=== PATIENT | female | born 1965 | race Hispanic/Latino ===

== ENCOUNTER 2017-01-11 12:49 | Emergency (ER) | payer MEDICAID ==
--- NOTE | 2017-01-11 14:26 | ED PDOC ---
HPI: General Adult Time Seen by Provider: 01/11/17 13:00 Chief Complaint (Provider): medication refill History Per: Patient History/Exam Limitations: no limitations Onset/Duration Of Symptoms: Unknown Have you had recent travel within the past 21 days to any of the following countries: [place], [place], [place] or [place]?: No Additional Complaint(s): Amber Phillips is a 51 year old female, with a previously medical history of anxiety, hypertension and depression, who presents to the ED for a refill in her medication. Pt reports running out of her 1 mg Klonopin and attempted to see her PMD today but was unable to. Pt denies any suicidal ideation, homicidal ideation, hallucinations, chest pain or shortness of breath. Pt denies any active medical complaints at this time. PMD: none provided Past Medical History Reviewed: Historical Data, Nursing Documentation, Vital Signs Vital Signs: Last Vital Signs Temp 97.6 F 01/11/17 13:14 Pulse 73 01/11/17 13:14 Resp 18 01/11/17 13:14 BP 113/73 01/11/17 13:14 Pulse Ox 96 01/11/17 13:14 - Medical History PMH: Anxiety, Depression, Fractures (right ankle), GERD, HTN Denies: Diabetes, Hepatitis, HIV, Seizures, Sexually Transmitted Disease - Surgical History Surgical History: No Surg Hx - Family History Family History: States: Unknown Family Hx - Immunization History Hx Tetanus Toxoid Vaccination: Yes Hx Influenza Vaccination: No Hx Pneumococcal Vaccination: No - Home Medications Home Medications: Ambulatory Orders Medication Instructions Recorded Enalapril Maleate [Vasotec] 10 mg PO BID 12/19/16 Ranitidine HCl [Zantac] 300 mg PO DAILY 12/19/16 clonazePAM [Klonopin] 1 mg PO TID 12/19/16 hydroCHLOROthiazide [Microzide] 12.5 mg PO DAILY 12/19/16 Clonazepam [Klonopin] 1 mg PO DAILY #5 tab 01/11/17 - Allergies Allergies/Adverse Reactions: Allergies Allergy/AdvReac Type Severity Reaction Status Date / Time No Known Allergies Allergy Verified 01/11/17 14:50 Review of Systems ROS Statement: Except As Marked, All Systems Reviewed And Found Negative Cardiovascular: Negative for: Chest Pain Respiratory: Negative for: Shortness of Breath Psych: Negative for: Suicidal ideation, Other (homicidal ideation, hallucination ) Physical Exam - Reviewed Nursing Documentation Reviewed: Yes Vital Signs Reviewed: Yes - Physical Exam Appears: Positive for: Well, Non-toxic, No Acute Distress Head Exam: Positive for: ATRAUMATIC, NORMAL INSPECTION, NORMOCEPHALIC Skin: Positive for: Normal Color Cardiovascular/Chest: Positive for: Regular Rate, Rhythm Respiratory: Positive for: Normal Breath Sounds Neurologic/Psych: Positive for: Alert, Oriented, Gait (steady). Negative for: Motor/Sensory Deficits Medical Decision Making Medical Decision Making: Initial Impression: medication refill Initial plan: * physical exam * disposition Pt was given a refill for 5 tablets of her 1 mg Klonopin and advised to follow up with her PMD. Scribe Attestation: Documented by Christina Buck, acting as a scribe for Sherice Sapp PA-C. Provider Scribe Attestation: All medical record entries made by the Scribe were at my direction and personally dictated by me. I have reviewed the chart and agree that the record accurately reflects my personal performance of the history, physical exam, medical decision making, and the department course for this patient. I have also personally directed, reviewed, and agree with the discharge instructions and disposition Disposition - Clinical Impression Clinical Impression: Medication refill - Disposition Condition: STABLE Prescriptions: Clonazepam [Klonopin] 1 mg PO DAILY #5 tab Instructions: Anxiety (ED)
[2017-01-11 14:53] VITALS: BP 113/73; PULSE 73; RESP 18; TEMP 97.6; O2SAT 96
== END 2017-01-11 14:22 | disposition home or self-care (01) ==
LOC: H.ER 12:49
DX: Z76.0 Encounter for issue of repeat prescription (principal)

== ENCOUNTER 2017-02-09 14:39 | Emergency (ER) | payer MEDICAID ==
[2017-02-09 14:44] VITALS: O2SAT 99
--- NOTE | 2017-02-09 15:17 | ED PDOC ---
HPI: Psych/Substance Abuse Time Seen by Provider: 02/09/17 14:51 Chief Complaint (Nursing): Alcohol Ingestion Chief Complaint (Provider): Alcohol ingestion History Per: Patient History/Exam Limitations: no limitations Onset/Duration Of Symptoms: Mins Current Symptoms Are (Timing): Still Present Suicide/Self Injury Attempted (Context): None Modifying Factor(s): Alcohol Associated Symptoms: Anxiety, Paranoia. denies: Suicidal Thoughts, Suicidal Plan Additional History Per: Patient, EMS Additional Complaint(s): The pt is a 51yo female, brought to the ED by EMS for evaluation s/p patient called 911 citing she felt paranoid and depressed. Pt admits to drinking alcohol today and denies any suicidal, homicidal ideation or hallucinations. Pt offers no additional medical complaints. Past Medical History Reviewed: Historical Data, Nursing Documentation, Vital Signs Vital Signs: Last Vital Signs Temp 98.6 F 02/09/17 14:42 Pulse 87 02/09/17 14:42 Resp 18 02/09/17 14:42 BP 128/74 02/09/17 14:42 Pulse Ox 99 02/09/17 14:42 - Medical History PMH: Anxiety, Depression, Fractures (right ankle), GERD, HTN Denies: Diabetes, Hepatitis, HIV, Seizures, Sexually Transmitted Disease - Family History Family History: States: Unknown Family Hx - Immunization History Hx Tetanus Toxoid Vaccination: Yes Hx Influenza Vaccination: No Hx Pneumococcal Vaccination: No - Home Medications Home Medications: Ambulatory Orders Medication Instructions Recorded Enalapril Maleate [Vasotec] 10 mg PO BID 12/19/16 Ranitidine HCl [Zantac] 300 mg PO DAILY 12/19/16 clonazePAM [Klonopin] 1 mg PO TID 12/19/16 hydroCHLOROthiazide [Microzide] 12.5 mg PO DAILY 12/19/16 Clonazepam [Klonopin] 1 mg PO DAILY #5 tab 01/11/17 - Allergies Allergies/Adverse Reactions: Allergies Allergy/AdvReac Type Severity Reaction Status Date / Time No Known Allergies Allergy Verified 01/11/17 14:50 Review of Systems ROS Statement: Except As Marked, All Systems Reviewed And Found Negative Psych: Positive for: Anxiety, Depression. Negative for: Suicidal ideation Physical Exam - Reviewed Nursing Documentation Reviewed: Yes Vital Signs Reviewed: Yes - Physical Exam Appears: Positive for: Well, Non-toxic, Uncomfortable Head Exam: Positive for: ATRAUMATIC, NORMAL INSPECTION, NORMOCEPHALIC Skin: Positive for: Normal Color Eye Exam: Positive for: Normal appearance Cardiovascular/Chest: Positive for: Regular Rate, Rhythm Respiratory: Negative for: Respiratory Distress Neurologic/Psych: Positive for: Alert, Oriented, Mood/Affect (slurred speech, alcohol on breath), Gait (steady) - ECG O2 Sat by Pulse Oximetry: 99 (RA) Pulse Ox Interpretation: Normal - Progress ED Course And Treament: Pt. evaluated by crisis and cleared pt. for discharge. Pt. with steady unassisted gait. Medical Decision Making Medical Decision Making: Time: 1507 Impression: ETOH intoxication Plan: -- Alcohol serum -- Drug Screen --Reassess Scribe Attestation: All records were documented by Yesenia Goldman, acting as a Scribe for IRWIN Hernandez. Provider Scribe Attestation: All medical record entries made by the Scribe were at my direction and personally dictated by me. I have reviewed the chart and agree that the record accurately reflects my personal performance of the history, physical exam, medical decision making, and the department course for this patient. I have also personally directed, reviewed, and agree with the discharge instructions and disposition. Disposition - Clinical Impression Clinical Impression: Alcohol intoxication - Patient ED Disposition Is Patient to be Admitted: No - Disposition Referrals: [facility] [Outside] Disposition: Routine/Home Disposition Time: 20:35 Condition: IMPROVED Instructions: Alcohol Intoxication (ED)
[2017-02-09 20:51] VITALS: BP 127/63; PULSE 82; RESP 18; TEMP 98
== END 2017-02-09 20:51 | disposition home or self-care (01) ==
LOC: H.ER 14:39
DX: F10.129 Alcohol abuse with intoxication, unspecified (principal); Y90.8 Blood alcohol level of 240 mg/100 ml or more

== ENCOUNTER 2017-02-14 06:26 | Emergency (ER) | payer MEDICAID ==
[2017-02-14 06:39] VITALS: BP 172/98; PULSE 102; RESP 16; TEMP 98.2; O2SAT 98
--- NOTE | 2017-02-14 07:52 | ED PDOC ---
HPI: Psych/Substance Abuse Time Seen by Provider: 02/14/17 07:12 Chief Complaint (Nursing): Anxiety Chief Complaint (Provider): Im anxious History Per: Patient History/Exam Limitations: no limitations Onset/Duration Of Symptoms: Gradual Current Symptoms Are (Timing): Still Present Suicide/Self Injury Attempted (Context): None Modifying Factor(s): None Severity: Mild Associated Symptoms: Anxiety. 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 Denies etoh intake. Denies suicidal or homicidal thoughts. [employer] database query reveals last klonopin received Jan 17, 90pills 1mg. Past Medical History Reviewed: Historical Data, Nursing Documentation, Vital Signs Vital Signs: Last Vital Signs Temp 98.2 F 02/14/17 06:36 Pulse 102 H 02/14/17 06:36 Resp 16 02/14/17 06:36 BP 172/98 H 02/14/17 06:36 Pulse Ox 98 02/14/17 06:36 - Medical History PMH: Anxiety, Depression, Fractures (right ankle), GERD, HTN Denies: Diabetes, Hepatitis, HIV, Chronic Kidney Disease, Seizures, Sexually Transmitted Disease - Family History Family History: States: Unknown Family Hx - Social History Current smoker - smoking cessation education provided: Yes Alcohol: Other (denies currently) - Immunization History Hx Tetanus Toxoid Vaccination: Yes Hx Influenza Vaccination: No Hx Pneumococcal Vaccination: No - Home Medications Home Medications: Ambulatory Orders Medication Instructions Recorded Enalapril Maleate [Vasotec] 10 mg PO BID 12/19/16 Ranitidine HCl [Zantac] 300 mg PO DAILY 12/19/16 clonazePAM [Klonopin] 1 mg PO TID 12/19/16 hydroCHLOROthiazide [Microzide] 12.5 mg PO DAILY 12/19/16 Clonazepam [Klonopin] 1 mg PO DAILY #5 tab 01/11/17 - Allergies Allergies/Adverse Reactions: Allergies Allergy/AdvReac Type Severity Reaction Status Date / Time No Known Allergies Allergy Verified 01/11/17 14:50 Review of Systems ROS Statement: Except As Marked, All Systems Reviewed And Found Negative Constitutional: Negative for: Fever, Chills Cardiovascular: Negative for: Chest Pain, Palpitations Respiratory: Negative for: Cough, Hemoptysis Genitourinary Female: Negative for: Dysuria, Frequency Skin: Negative for: Rash, Lesions Neurological: Negative for: Weakness, Numbness Psych: Positive for: Anxiety. Negative for: Psychosis, Suicidal ideation, Withdrawal Physical Exam - Reviewed Nursing Documentation Reviewed: Yes Vital Signs Reviewed: Yes - Physical Exam Appears: Positive for: Well, Non-toxic, No Acute Distress Head Exam: Positive for: ATRAUMATIC, NORMAL INSPECTION, NORMOCEPHALIC Skin: Positive for: Normal Color, Warm, DRY Eye Exam: Positive for: EOMI, Normal appearance, PERRL Respiratory: Negative for: Respiratory Distress Gastrointestinal/Abdominal: Positive for: Normal Exam, Bowel Sounds, Soft. Negative for: Tenderness Back: Positive for: Normal Inspection Extremity: Positive for: Normal ROM. Negative for: Deformity Neurologic/Psych: Positive for: Alert, Oriented, Mood/Affect (anxious but cooperative). Negative for: Motor/Sensory Deficits, Aphasia, Facial Droop - ECG O2 Sat by Pulse Oximetry: 98 Pulse Ox Interpretation: Normal Medical Decision Making Medical Decision Making: klonopin 1mg ordered PO in ED. Explained for refills of chronic anxiety medications needs to see PMD. No signs acute benzo withdrawal to indicate hospitalization. Disposition - Clinical Impression Clinical Impression: Anxiety - Patient ED Disposition Is Patient to be Admitted: No Counseled Patient/Family Regarding: Studies Performed, Diagnosis, Need For Followup - Disposition Referrals: Clark Farrar [Medical Doctor] - Disposition: Routine/Home Disposition Time: 07:53 Condition: STABLE Additional Instructions: Followup with primary doctor for continuing care. Instructions: Anxiety (ED)
== END 2017-02-14 08:10 | disposition home or self-care (01) ==
LOC: H.ER 06:26
DX: F41.9 Anxiety disorder, unspecified (principal); I10 Essential (primary) hypertension; K21.9 Gastro-esophageal reflux disease without esophagitis

== ENCOUNTER 2017-03-27 06:38 | Emergency (ER) | payer MEDICAID, OTHER ==
[2017-03-27 06:45] VITALS: BP 143/72; PULSE 84; RESP 16; TEMP 98.7; O2SAT 96
--- NOTE | 2017-03-27 07:25 | ED PDOC ---
HPI: Psych/Substance Abuse Time Seen by Provider: 03/27/17 07:07 Chief Complaint (Nursing): Anxiety History Per: Patient (Requesting medication for anxiety. Denies SI/HI.) Onset/Duration Of Symptoms: Unknown Suicide/Self Injury Attempted (Context): None Modifying Factor(s): None Severity: None Associated Symptoms: Anxiety Past Medical History Vital Signs: Last Vital Signs Temp 98.7 F 03/27/17 06:40 Pulse 84 03/27/17 06:40 Resp 16 03/27/17 06:40 BP 143/72 03/27/17 06:40 Pulse Ox 96 03/27/17 06:40 - Medical History PMH: Anxiety, Depression, Fractures (right ankle), GERD, HTN Denies: Diabetes, Hepatitis, HIV, Chronic Kidney Disease, Seizures, Sexually Transmitted Disease - Family History Family History: States: Unknown Family Hx - Immunization History Hx Tetanus Toxoid Vaccination: Yes Hx Influenza Vaccination: No Hx Pneumococcal Vaccination: No - Home Medications Home Medications: Ambulatory Orders Medication Instructions Recorded Enalapril Maleate [Vasotec] 10 mg PO BID 12/19/16 Ranitidine HCl [Zantac] 300 mg PO DAILY 12/19/16 clonazePAM [Klonopin] 1 mg PO TID 12/19/16 hydroCHLOROthiazide [Microzide] 12.5 mg PO DAILY 12/19/16 Clonazepam [Klonopin] 1 mg PO DAILY #5 tab 01/11/17 - Allergies Allergies/Adverse Reactions: Allergies Allergy/AdvReac Type Severity Reaction Status Date / Time No Known Allergies Allergy Verified 01/11/17 14:50 Review of Systems Cardiovascular: Negative for: Chest Pain, Palpitations Respiratory: Negative for: Shortness of Breath Psych: Positive for: Anxiety Physical Exam - Physical Exam Appears: Positive for: Non-toxic, No Acute Distress Skin: Positive for: Normal Color, Warm, DRY Cardiovascular/Chest: Positive for: Regular Rate, Rhythm Respiratory: Positive for: CNT, Normal Breath Sounds Neurologic/Psych: Positive for: Mood/Affect (Calm, appropriate NAD) - ECG O2 Sat by Pulse Oximetry: 96 Disposition - Clinical Impression Clinical Impression: Anxiety - Patient ED Disposition Is Patient to be Admitted: No - Disposition Referrals: [facility] [Outside] Disposition: Routine/Home Disposition Time: 07:25 Condition: FAIR Instructions: Anxiety (ED)
== END 2017-03-27 07:39 | disposition home or self-care (01) ==
LOC: H.ER 06:38
DX: F41.9 Anxiety disorder, unspecified (principal)

== ENCOUNTER 2017-03-27 19:02 | Emergency (ER) | payer MEDICAID, OTHER ==
[2017-03-27 19:06] VITALS: BP 126/85; PULSE 91; RESP 18; TEMP 98.7; O2SAT 99
--- NOTE | 2017-03-27 19:26 | ED PDOC ---
HPI: Psych/Substance Abuse Time Seen by Provider: 03/27/17 19:07 Chief Complaint (Nursing): Alcohol Ingestion Chief Complaint (Provider): etoh History Per: Patient, EMS Additional Complaint(s): 51-year-old female with history of anxiety presents to emergency department acutely intoxicated. Patient admits to drinking today and states that she has been anxious over her current living situation. She denies suicidal or homicidal ideation. Patient is also out of her anxiety medications that she takes daily. She normally takes 1 mg Klonopin 3 times a day and was supposed to follow-up last week with her primary doctor but she never made the appointment. Patient denies any chest pain, shortness of breath or dyspnea on exertion. In addition to drinking alcohol today she admits to taking 2 tablets of Benadryl at home. Past Medical History Reviewed: Historical Data, Nursing Documentation, Vital Signs Vital Signs: Last Vital Signs Temp 98.7 F 03/27/17 19:04 Pulse 91 H 03/27/17 19:04 Resp 18 03/27/17 19:04 BP 126/85 03/27/17 19:04 Pulse Ox 99 03/27/17 19:04 - Medical History PMH: Anxiety, Depression, Fractures (right ankle), GERD, HTN - Surgical History Other surgeries: right ankle surgery - Family History Family History: States: No Known Family Hx - Living Arrangements Living Arrangements: With Family - Social History Current smoker - smoking cessation education provided: No Alcohol: Social Drugs: Denies - Home Medications Home Medications: Ambulatory Orders Medication Instructions Recorded Enalapril Maleate [Vasotec] 10 mg PO BID 12/19/16 Ranitidine HCl [Zantac] 300 mg PO DAILY 12/19/16 clonazePAM [Klonopin] 1 mg PO TID 12/19/16 hydroCHLOROthiazide [Microzide] 12.5 mg PO DAILY 12/19/16 Clonazepam [Klonopin] 1 mg PO DAILY #5 tab 01/11/17 - Allergies Allergies/Adverse Reactions: Allergies Allergy/AdvReac Type Severity Reaction Status Date / Time No Known Allergies Allergy Verified 03/27/17 19:03 Review of Systems ROS Statement: Except As Marked, All Systems Reviewed And Found Negative Constitutional: Negative for: Fever Psych: Positive for: Anxiety, Other (etoh). Negative for: Suicidal ideation Physical Exam - Reviewed Nursing Documentation Reviewed: Yes Vital Signs Reviewed: Yes - Physical Exam Appears: Positive for: Well Head Exam: Positive for: NORMAL INSPECTION Skin: Negative for: Rash Eye Exam: Positive for: Normal appearance Cardiovascular/Chest: Positive for: Regular Rate, Rhythm Respiratory: Positive for: Normal Breath Sounds Neurologic/Psych: Positive for: Alert, Oriented, Other (intoxicated, answers questions appropriately) - ECG O2 Sat by Pulse Oximetry: 99 Pulse Ox Interpretation: Normal Medical Decision Making Medical Decision Makin51 year old acutely intoxicated female 19:25 Plan: BAL: 225 Fingerstick: 114 ED observation ED OBSERVATION Date of observation admission: 03/27/17 Time of observation admission: 19:25 - Observation admission statement Patient is being placed in observation because:: Alcohol intoxication - Goals of Observation Goals of observation are:: Monitor vital signs and airway well patient is acutely intoxicated, pending sobriety - Progress Note Progress Note: 03/27/17 21:30 Patient is sleeping, arousable, vital signs are stable, no airway compromise 03/27/17 23:30 Patient is more awake, alert, has steady gait and wishes to go home. Patient is stable for discharge. Disposition - Clinical Impression Clinical Impression: Anxiety, Alcohol intoxication - Patient ED Disposition Is Patient to be Admitted: No Counseled Patient/Family Regarding: Diagnosis, Need For Followup - Disposition Referrals: [facility] [Outside] Disposition: Routine/Home Disposition Time: 23:35 Condition: STABLE Additional Instructions: Follow up as soon as possible with your primary care doctor. Instructions: Alcohol Intoxication (ED)
== END 2017-03-27 23:53 | disposition home or self-care (01) ==
LOC: H.ER 19:02
DX: F51.9 Sleep disorder not due to a substance or known physiological condition, unspecified (principal)

== ENCOUNTER 2017-07-17 14:22 | Emergency (ER) | payer MEDICAID ==
[2017-07-17 14:52] VITALS: TEMP 98.4; O2SAT 97
[2017-07-17] MEDS ORDERED: Sodium Chloride 0.9% 1,000 ML IV STA (15:11)
--- NOTE | 2017-07-17 15:13 | ED PDOC ---
HPI: Abdomen Time Seen by Provider: 07/17/17 14:56 Chief Complaint (Nursing): Anxiety History Per: Patient (Epigastric pain x 2 days. States has been drinking daily and feels depresssed but denies SI/HI. No vomiting) Current Symptoms Are (Timing): Intermittent Episodes Severity: Mild Pain Scale Rating Of: 2 Location Of Pain/Discomfort: Epigastric Quality Of Discomfort: Unable To Describe Associated Symptoms: denies: Vomiting Past Medical History Vital Signs: Last Vital Signs Temp 98.4 F 07/17/17 14:50 Pulse 92 H 07/17/17 14:50 Resp 16 07/17/17 14:50 BP 141/87 07/17/17 14:50 Pulse Ox 97 07/17/17 15:13 - Medical History PMH: Anxiety, Depression, Fractures (right ankle), GERD, HTN Denies: Diabetes, Hepatitis, HIV, Chronic Kidney Disease, Seizures, Sexually Transmitted Disease - Family History Family History: States: Unknown Family Hx - Immunization History Hx Tetanus Toxoid Vaccination: Yes Hx Influenza Vaccination: No Hx Pneumococcal Vaccination: No - Home Medications Home Medications: Ambulatory Orders Medication Instructions Recorded Enalapril Maleate [Vasotec] 10 mg PO BID 12/19/16 Ranitidine HCl [Zantac] 300 mg PO DAILY 12/19/16 clonazePAM [Klonopin] 1 mg PO TID 12/19/16 hydroCHLOROthiazide [Microzide] 12.5 mg PO DAILY 12/19/16 Clonazepam [Klonopin] 1 mg PO DAILY #5 tab 01/11/17 Enalapril Maleate [Vasotec] 10 mg PO BID #60 tab 05/29/17 Pantoprazole [Protonix EC Tab] 20 mg PO DAILY #30 ect 05/29/17 hydroCHLOROthiazide [Microzide] 12.5 mg PO DAILY #30 cap 05/29/17 Famotidine [Pepcid] 20 mg PO Q12 #20 tab 07/17/17 chlordiazePOXIDE [Chlordiazepoxide 10 mg PO Q8 #10 cap 07/17/17 HCl] - Allergies Allergies/Adverse Reactions: Allergies Allergy/AdvReac Type Severity Reaction Status Date / Time No Known Allergies Allergy Verified 07/17/17 14:49 Review of Systems ROS Statement: Except As Marked, All Systems Reviewed And Found Negative Gastrointestinal: Positive for: Abdominal Pain Psych: Positive for: Depression. Negative for: Suicidal ideation Physical Exam - Reviewed Nursing Documentation Reviewed: Yes Vital Signs Reviewed: Yes - Physical Exam Appears: Positive for: Non-toxic, No Acute Distress Head Exam: Positive for: ATRAUMATIC, NORMAL INSPECTION, NORMOCEPHALIC Skin: Positive for: Normal Color, Warm, DRY Eye Exam: Positive for: EOMI, Normal appearance, PERRL ENT: Positive for: Normal ENT Inspection Neck: Positive for: Normal, Painless ROM Cardiovascular/Chest: Positive for: Regular Rate, Rhythm Respiratory: Positive for: CNT, Normal Breath Sounds Gastrointestinal/Abdominal: Positive for: Normal Exam, Bowel Sounds, Soft Back: Positive for: Normal Inspection Extremity: Positive for: Normal ROM Neurologic/Psych: Positive for: Alert, Oriented - Laboratory Results Result Diagrams: 07/17/17 15:44 07/17/17 15:44 - ECG O2 Sat by Pulse Oximetry: 97 - Progress Re-evaluation Time: 17:55 Condition: Re-examined (Awake alert oriented x 3 No focal neuro deficits) Disposition - Clinical Impression Clinical Impression: Alcohol abuse - Patient ED Disposition Is Patient to be Admitted: No Counseled Patient/Family Regarding: Studies Performed, Diagnosis, Need For Followup, Rx Given - Disposition Referrals: [facility] [Outside] [facility]] Disposition: Routine/Home Disposition Time: 17:56 Condition: FAIR Prescriptions: chlordiazePOXIDE [Chlordiazepoxide HCl] 10 mg PO Q8 #10 cap Famotidine [Pepcid] 20 mg PO Q12 #20 tab Instructions: Abuse of Alcohol (ED), Gastritis (ED) Forms: [employer] (Hungarian)
[2017-07-17 15:55] LABS: BASO # 0.1 K/uL (0.0-0.2); BASO % 0.7 % (0.0-2.0); EOS % 0.5 % (0.0-4.0); HEMATOCRIT 37.7 % (34.0-47.0); LYMPH # 3.3 K/uL (1.0-4.3); MEAN CORPUSCULAR HEMOGLOBIN 33.5 pg (27.0-31.0); MEAN CORPUSCULAR HGB CONC 34.9 g/dL (33.0-37.0); MONO # 0.8 K/uL (0.0-0.8); MONO % 9.2 % (0.0-10.0); NEUT # 4.9 K/uL (1.8-7.0); NEUT % 53.6 % (50.0-75.0); NRBC % 0.2 % (0.0-0.0); RED CELL DISTRIBUTION WIDTH 12.5 % (11.5-14.5); WHITE BLOOD COUNT 9.1 K/uL (4.8-10.8)
[2017-07-17 16:07] LABS: ALB/GLOB RATIO 1.1 (1.0-2.1); ALCOHOL SERUM 165 mg/dl (0-10); ALKALINE PHOSPHATASE 113 U/L (38-126); ALT/SGPT 219 U/L (9-52); AST/SGOT 226 U/L (14-36); BILIRUBIN,TOTAL 0.5 mg/dl (0.2-1.3); BLOOD UREA NITROGEN 12 mg/dl (7-17); CALCIUM 8.9 mg/dL (8.4-10.2); CARBON DIOXIDE 22 mmol/L (22-30); CHLORIDE 90 mmol/L (98-107); GFR AFRICAN-AMERICAN > 60; GLUCOSE,RANDOM 120 mg/dL (65-105); POTASSIUM 3.4 MMOL/L (3.6-5.0); SODIUM 128 mmol/l (132-148); TOTAL PROTEIN 7.6 G/DL (6.3-8.2)
[2017-07-17] MEDS ORDERED: Potassium Chloride 20 mEq ER Tab PO ONE ×2 (17:29→18:02)
[2017-07-17 18:25] VITALS: BP 132/80; PULSE 82; RESP 17
== END 2017-07-17 18:24 | disposition home or self-care (01) ==
LOC: H.ER 14:22
DX: F10.129 Alcohol abuse with intoxication, unspecified (principal)
CPT/HCPCS: 80053; 80320; 85025; 96374; 99283; J7040

== ENCOUNTER 2017-07-21 10:30 | Emergency (ER) | payer MEDICAID ==
[2017-07-21 10:35] VITALS: BP 144/83; PULSE 101; RESP 18; TEMP 98.9; O2SAT 97; BMI 31.7
[2017-07-21] MEDS ORDERED: Sodium Chloride 0.9% 1,000 ML IV STA (11:29)
--- NOTE | 2017-07-21 11:30 | ED PDOC ---
HPI: Abdomen Time Seen by Provider: 07/21/17 10:49 Chief Complaint (Nursing): Abdominal Pain Chief Complaint (Provider): Vomiting and Right sided abdominal pain History Per: Patient History/Exam Limitations: no limitations Onset/Duration Of Symptoms: Days Outside of [place] travel?: No Current Symptoms Are (Timing): Still Present Associated Symptoms: Vomiting Additional Complaint(s): Amber Phillips, a 51 year old female, with a past medical history of hypertension and anxiety presents to the ED complaining of vomiting and right sided rib pain. The patient states that she was seen in the ED a few days ago and diagnosed with gastritis and prescribed librium and pepcid. She reports that her last episode of vomiting was a day ago. Abnormal Vaginal Bleeding: No Past Medical History Reviewed: Historical Data, Nursing Documentation, Vital Signs Vital Signs: Last Vital Signs Temp 98.9 F 07/21/17 10:34 Pulse 101 H 07/21/17 10:34 Resp 18 07/21/17 10:34 BP 144/83 07/21/17 10:34 Pulse Ox 97 07/21/17 11:33 - Medical History PMH: Anxiety, Depression, Fractures (right ankle), GERD, HTN Denies: Diabetes, Hepatitis, HIV, Chronic Kidney Disease, Seizures, Sexually Transmitted Disease - Family History Family History: States: Unknown Family Hx - Immunization History Hx Tetanus Toxoid Vaccination: Yes Hx Influenza Vaccination: No Hx Pneumococcal Vaccination: No - Home Medications Home Medications: Ambulatory Orders Medication Instructions Recorded Ranitidine HCl [Zantac] 300 mg PO DAILY 12/19/16 clonazePAM [Klonopin] 1 mg PO TID 12/19/16 Enalapril Maleate [Vasotec] 10 mg PO BID #60 tab 05/29/17 Pantoprazole [Protonix EC Tab] 20 mg PO DAILY #30 ect 05/29/17 hydroCHLOROthiazide [Microzide] 12.5 mg PO DAILY #30 cap 05/29/17 Famotidine [Pepcid] 20 mg PO Q12 #20 tab 07/17/17 chlordiazePOXIDE [Chlordiazepoxide 10 mg PO Q8 #10 cap 07/17/17 HCl] - Allergies Allergies/Adverse Reactions: Allergies Allergy/AdvReac Type Severity Reaction Status Date / Time No Known Allergies Allergy Verified 07/17/17 14:49 Review of Systems ROS Statement: Except As Marked, All Systems Reviewed And Found Negative Gastrointestinal: Positive for: Vomiting, Abdominal Pain (right sided abdominal pain) Physical Exam - Reviewed Nursing Documentation Reviewed: Yes Vital Signs Reviewed: Yes - Physical Exam Appears: Positive for: Non-toxic, No Acute Distress Head Exam: Positive for: ATRAUMATIC, NORMAL INSPECTION, NORMOCEPHALIC Skin: Positive for: Normal Color, Warm, Dry. Negative for: Rash Eye Exam: Positive for: Normal appearance, EOMI, PERRL. Negative for: Nystagmus Neck: Positive for: Normal, Painless ROM, Supple Cardiovascular/Chest: Positive for: Regular Rate, Rhythm, Chest Non Tender. Negative for: Tachycardia Respiratory: Positive for: Normal Breath Sounds. Negative for: Wheezing, Respiratory Distress Gastrointestinal/Abdominal: Positive for: Normal Exam, Bowel Sounds, Soft. Negative for: Tenderness, Guarding, Rebound Back: Positive for: Normal Inspection. Negative for: L CVA Tenderness, R CVA Tenderness Extremity: Positive for: Normal ROM. Negative for: Tenderness, Pedal Edema, Deformity, Swelling Neurologic/Psych: Positive for: Alert, Oriented, Gait - Laboratory Results Result Diagrams: 07/21/17 12:07 07/21/17 12:50 - ECG O2 Sat by Pulse Oximetry: 97 (RA) Pulse Ox Interpretation: Normal Medical Decision Making Medical Decision Makin Initial Impression 51 y/o old female presenting with left sided abdominal pain Initial Plan: * Alcohol Serum * CMP * Lipase * Udip * CBC * Obstructive Series * NS 1000ml IV 1000mls/hr * Reevaluation Scribe Attestation Documented by Bee Arevalo acting as a scribe for Ivelisse Wadsworth MD. Provider Attestation All medical record entries made by the Scribe were at my direction and personally dictated by me. I have reviewed the chart and agree that the record accurately reflects my personal performance of the history, physical exam, medical decision making, and the department course for this patient. I have also personally directed, reviewed, and agree with the discharge instructions and disposition. Disposition - Clinical Impression Clinical Impression: Flatulence/gas pain/belching - Patient ED Disposition Is Patient to be Admitted: No Doctor Will See Patient In The: Office - Disposition Disposition: Routine/Home Disposition Time: 14:00 Condition: STABLE Instructions: Gas and Bloating (ED) Forms: [facility] (Korean) - POA Present On Arrival: None
[2017-07-21 12:26] LABS: BASO # 0.1 K/uL (0.0-0.2); BASO % 0.6 % (0.0-2.0); EOS # 0.1 K/uL (0.0-0.7); EOS % 0.8 % (0.0-4.0); HEMATOCRIT 37.2 % (34.0-47.0); LYMPH # 2.3 K/uL (1.0-4.3); MEAN CELL VOLUME 96.3 fl (81.0-99.0); MEAN CORPUSCULAR HGB CONC 35.3 g/dL (33.0-37.0); MEAN PLATELET VOLUME 9.2 fl (7.2-11.7); MONO # 0.7 K/uL (0.0-0.8); MONO % 8.2 % (0.0-10.0); NEUT # 5.5 K/uL (1.8-7.0); NEUT % 63.4 % (50.0-75.0); NRBC % 0.3 % (0.0-0.0); RED CELL DISTRIBUTION WIDTH 12.3 % (11.5-14.5); WHITE BLOOD COUNT 8.7 K/uL (4.8-10.8)
--- NOTE | 2017-07-21 12:26 | RAD ---
PROCEDURE: Radiographs of the chest and abdomen (obstructive series) HISTORY: abdominal pain COMPARISON: Chest x-ray performed 12/19/16 TECHNIQUE: AP radiograph of the chest, with upright and supine radiographs of the abdomen. FINDINGS: Examination limited by habitus. CHEST: Heart size appears within normal limits. No focal consolidation, significant pleural effusion, or definite pneumothorax identified.Please note that chest x-ray has limited sensitivity for the detection of pulmonary masses. ABDOMEN AND PELVIS: Nonobstructive bowel gas pattern. No definite free air. Mild constipation. Punctate radiopaque densities appear to reflect tiny residual oral contrast in the right colon; correlate clinically for recent outside imaging study. Degenerative changes of the spine. IMPRESSION: Nonobstructive bowel gas pattern. Mild constipation. Additional findings as above.
[2017-07-21 13:12] LABS: ALB/GLOB RATIO 1.1 (1.0-2.1); ALCOHOL SERUM < 10 mg/dl (0-10); ALKALINE PHOSPHATASE 113 U/L (38-126); ALT/SGPT 228 U/L (9-52); AST/SGOT 217 U/L (14-36); BILIRUBIN,TOTAL 0.6 mg/dl (0.2-1.3); BLOOD UREA NITROGEN 12 mg/dl (7-17); CALCIUM 8.9 mg/dL (8.4-10.2); CARBON DIOXIDE 28 mmol/L (22-30); CHLORIDE 93 mmol/L (98-107); GFR AFRICAN-AMERICAN > 60; GLUCOSE,RANDOM 99 mg/dL (65-105); SODIUM 132 mmol/l (132-148)
[2017-07-21 13:14] LABS: POTASSIUM 3.3 MMOL/L (3.6-5.0)
== END 2017-07-21 14:46 | disposition home or self-care (01) ==
LOC: H.ER 10:30
DX: R14.3 Flatulence (principal); R14.2 Eructation; R14.1 Gas pain; I10 Essential (primary) hypertension; Z86.59 Personal history of other mental and behavioral disorders
CPT/HCPCS: 74022; 80053; 80320; 81025; 85025; 99282; J7040

== ENCOUNTER 2017-09-14 13:34 | Observation (INO) | payer MEDICAID ==
[2017-09-14 13:35] VITALS: BMI 31.7
--- NOTE | 2017-09-14 14:02 | ED PDOC ---
HPI: Psych/Substance Abuse Time Seen by Provider: 09/14/17 13:55 Chief Complaint (Nursing): GI Problem Chief Complaint (Provider): etoh History Per: Patient Additional Complaint(s): 51-year-old female with history of anxiety and alcohol abuse presents to emergency department acutely intoxicated. Patient states she went to an alcohol detox program in June 2017 and was sober for about 30 days after which she relapsed. She states she has not been feeling well over the past couple of weeks because she has been drinking heavily. Patient denies suicidal or homicidal ideation. Patient denies any nausea or vomiting despite triage note stating otherwise. Patient was seen on 08/28/17 by her PMD and was told that her sodium levels are very low. She presents today for further evaluation of this. Past Medical History Reviewed: Historical Data, Nursing Documentation, Vital Signs Vital Signs: Last Vital Signs Temp 97.0 F L 09/14/17 13:37 Pulse 114 H 09/14/17 13:37 Resp 18 09/14/17 13:37 BP 143/93 H 09/14/17 13:37 Pulse Ox 99 09/14/17 13:37 - Medical History PMH: Anxiety, Depression, Fractures (right ankle), GERD, HTN - Family History Family History: States: No Known Family Hx - Living Arrangements Living Arrangements: With Friends/Others - Social History Current smoker - smoking cessation education provided: No Alcohol: > 2 Drinks/Day Drugs: Denies - Home Medications Home Medications: Ambulatory Orders Medication Instructions Recorded Ranitidine HCl [Zantac] 300 mg PO DAILY 12/19/16 clonazePAM [Klonopin] 1 mg PO TID 12/19/16 Enalapril Maleate [Vasotec] 10 mg PO BID #60 tab 05/29/17 Pantoprazole [Protonix EC Tab] 20 mg PO DAILY #30 ect 05/29/17 hydroCHLOROthiazide [Microzide] 12.5 mg PO DAILY #30 cap 05/29/17 Famotidine [Pepcid] 20 mg PO Q12 #20 tab 07/17/17 chlordiazePOXIDE [Chlordiazepoxide 10 mg PO Q8 #10 cap 07/17/17 HCl] - Allergies Allergies/Adverse Reactions: Allergies Allergy/AdvReac Type Severity Reaction Status Date / Time No Known Allergies Allergy Verified 07/17/17 14:49 Review of Systems ROS Statement: Except As Marked, All Systems Reviewed And Found Negative Constitutional: Negative for: Fever Gastrointestinal: Negative for: Nausea, Vomiting, Abdominal Pain Psych: Positive for: Other (etoh) Physical Exam - Reviewed Nursing Documentation Reviewed: Yes Vital Signs Reviewed: Yes - Physical Exam Appears: Positive for: Well, Non-toxic, No Acute Distress Skin: Negative for: Rash Eye Exam: Positive for: Normal appearance Cardiovascular/Chest: Positive for: Regular Rate, Rhythm Respiratory: Positive for: Normal Breath Sounds Gastrointestinal/Abdominal: Positive for: Soft. Negative for: Tenderness, Distended, Guarding, Rebound Back: Positive for: Normal Inspection Extremity: Positive for: Normal ROM Neurologic/Psych: Positive for: Alert, Oriented, Other (intoxicated, answers some questions appropriately) - Laboratory Results Result Diagrams: 09/14/17 14:30 09/14/17 14:30 - ECG Interpretation Of ECG: Sinus tach 103 bpm with PAC's, reviewed by PA and ED attending O2 Sat by Pulse Oximetry: 99 Pulse Ox Interpretation: Normal - Other Rad CXR X-Ray: Interpreted by Me, Viewed By Me X-Ray Interpretation: no acute finding Medical Decision Making Medical Decision Makin51 year old intoxicated female Patient is eating sandwich in ED room. She denies abd pain or vomiting. Plan: BAL CBC CMP UDS CXR EKG NA low at 122, case was d/w Dr. Kelsey. Patient will be admitted to medicine administrative assistant front desk, Dr. Mcneill. NS started. Patient is aware of and agrees with admission. Disposition - Clinical Impression Clinical Impression: Alcohol abuse, Hyponatremia - Patient ED Disposition Is Patient to be Admitted: Yes - Disposition Disposition Time: 15:37 Condition: FAIR - Pt Status Changed To: Hospital Disposition Of: Observation Results - Lab Results Lab Results: 09/14/17 09/14/17 14:30 14:30 WBC 11.0 H RBC 3.99 Hgb 13.3 Hct 38.4 MCV 96.2 MCH 33.3 H MCHC 34.6 RDW 13.2 Plt Count 217 MPV 8.4 Neut % (Auto) 58.1 Lymph % (Auto) 33.8 [place] % (Auto) 6.5 Eos % (Auto) 0.7 Baso % (Auto) 0.9 Neut # 6.4 Lymph # 3.7 Love # 0.7 Eos # 0.1 Baso # 0.1 Sodium 122 L Potassium 3.5 L Chloride 86 L Carbon Dioxide 28 Anion Gap 12 BUN 13 Creatinine 0.7 Est GFR ( Amer) > 60 Est GFR (Non-Af Amer) > 60 Random Glucose 141 H Calcium 8.4 Total Bilirubin 0.4 AST 118 H D ALT 135 H D Alkaline Phosphatase 125 Total Protein 7.8 Albumin 4.2 Globulin 3.6 Albumin/Globulin Ratio 1.1 Alcohol, Quantitative 143 H
[2017-09-14 14:34] LABS: BASO # 0.1 K/uL (0.0-0.2); BASO % 0.9 % (0.0-2.0); EOS # 0.1 K/uL (0.0-0.7); EOS % 0.7 % (0.0-4.0); HEMATOCRIT 38.4 % (34.0-47.0); LYMPH # 3.7 K/uL (1.0-4.3); LYMPH % 33.8 % (20.0-40.0); MEAN CELL VOLUME 96.2 fl (81.0-99.0); MEAN CORPUSCULAR HEMOGLOBIN 33.3 pg (27.0-31.0); MEAN CORPUSCULAR HGB CONC 34.6 g/dL (33.0-37.0); MEAN PLATELET VOLUME 8.4 fl (7.2-11.7); MONO # 0.7 K/uL (0.0-0.8); MONO % 6.5 % (0.0-10.0); NEUT # 6.4 K/uL (1.8-7.0); NEUT % 58.1 % (50.0-75.0); RED CELL DISTRIBUTION WIDTH 13.2 % (11.5-14.5)
[2017-09-14] MEDS ORDERED: Alum-Mag Hydrox-Simethicone Susp (30 mL) PO STA (14:44)
[2017-09-14 14:46] LABS: ALB/GLOB RATIO 1.1 (1.0-2.1); ALCOHOL SERUM 143 mg/dl (0-10); ALKALINE PHOSPHATASE 125 U/L (38-126); ALT/SGPT 135 U/L (9-52); AST/SGOT 118 U/L (14-36); BILIRUBIN,TOTAL 0.4 mg/dl (0.2-1.3); BLOOD UREA NITROGEN 13 mg/dl (7-17); CALCIUM 8.4 mg/dL (8.4-10.2); CARBON DIOXIDE 28 mmol/L (22-30); CHLORIDE 86 mmol/L (98-107); GFR AFRICAN-AMERICAN > 60; GLUCOSE,RANDOM 141 mg/dL (65-105); POTASSIUM 3.5 MMOL/L (3.6-5.0); SODIUM 122 mmol/l (132-148); TOTAL PROTEIN 7.8 G/DL (6.3-8.2)
[2017-09-14] MEDS ORDERED: Alum-Mag Hydrox-Simethicone Susp (30 mL) ONE (14:52)
[2017-09-14] MEDS ORDERED: Sodium Chloride 0.9% 1,000 ML IV STA ×2 (15:12→15:35)
--- NOTE | 2017-09-14 17:56 | RAD ---
HISTORY: cough COMPARISON: Comparison chest dated 12/19/2016. Do TECHNIQUE: Chest PA and lateral FINDINGS: LUNGS: No active pulmonary disease. PLEURA: No significant pleural effusion identified. No pneumothorax apparent. CARDIOVASCULAR: Heart size is borderline/ mildly enlarged. OSSEOUS STRUCTURES: No significant abnormalities. VISUALIZED UPPER ABDOMEN: Normal. OTHER FINDINGS: None. IMPRESSION: No active disease.
[2017-09-15] MEDS: Pantoprazole 20 mg EC Tab PO SCH ×2 (00:53→08:43)
[2017-09-15 06:32] LABS: HEMATOCRIT 34.9 % (34.0-47.0); MEAN CELL VOLUME 98.2 fl (81.0-99.0); MEAN CORPUSCULAR HEMOGLOBIN 33.3 pg (27.0-31.0); MEAN CORPUSCULAR HGB CONC 33.9 g/dL (33.0-37.0); RED CELL DISTRIBUTION WIDTH 13.4 % (11.5-14.5)
[2017-09-15 06:56] LABS: ALKALINE PHOSPHATASE 100 U/L (38-126); ALT/SGPT 118 U/L (9-52); AST/SGOT 98 U/L (14-36); BILIRUBIN,TOTAL 0.5 mg/dl (0.2-1.3); BLOOD UREA NITROGEN 9 mg/dl (7-17); CARBON DIOXIDE 25 mmol/L (22-30); CHLORIDE 102 mmol/L (98-107); GFR AFRICAN-AMERICAN > 60; GLUCOSE,RANDOM 110 mg/dL (65-105); POTASSIUM 4.1 MMOL/L (3.6-5.0); SODIUM 134 mmol/l (132-148); TOTAL PROTEIN 6.7 G/DL (6.3-8.2)
[2017-09-15 08:34] VITALS: BP 150/89; PULSE 86; RESP 20; TEMP 98.6; O2SAT 97
[2017-09-15] MEDS: Sodium Chloride 0.9% 1,000 ML IV SCH ×2 (08:46)
[2017-09-15] MEDS ORDERED: Pantoprazole 20 mg EC Tab PO SCH (09:00)
--- NOTE | 2017-09-15 11:06 | CARD ---
APPROVED REPORT EKG Measurement Heart [id number] <Conclusion> Sinus tachycardia with premature atrial complexes Possible Left atrial enlargement ST & T wave abnormality, consider anterior ischemia Abnormal ECG
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
--- NOTE | 2017-09-15 12:27 | CP.PCM.DIS ---
Provider - Provider Date of Admission: 09/14/17 15:58 Attending physician: Kamari Mcneill MD Time Spent in preparation of Discharge (in minutes): 30 Diagnosis - Discharge Diagnosis (1) Hyponatremia Status: Acute (2) Alcohol abuse Status: Acute (3) Anxiety Status: Acute Hospital Course - Lab Results Lab Results: Most Recent Lab Values WBC 7.0 K/uL (4.8-10.8) 09/15/17 05:30 RBC 3.56 Mil/uL (3.80-5.20) L 09/15/17 05:30 Hgb 11.9 g/dL (12.0-16.0) L 09/15/17 05:30 Hct 34.9 % (34.0-47.0) 09/15/17 05:30 MCV 98.2 fl (81.0-99.0) D 09/15/17 05:30 MCH 33.3 pg (27.0-31.0) H 09/15/17 05:30 MCHC 33.9 g/dL (33.0-37.0) 09/15/17 05:30 RDW 13.4 % (11.5-14.5) 09/15/17 05:30 Plt Count 164 K/uL (130-400) 09/15/17 05:30 MPV 8.4 fl (7.2-11.7) 09/14/17 14:30 Neut % (Auto) 58.1 % (50.0-75.0) 09/14/17 14:30 Lymph % (Auto) 33.8 % (20.0-40.0) 09/14/17 14:30 [place] % (Auto) 6.5 % (0.0-10.0) 09/14/17 14:30 Eos % (Auto) 0.7 % (0.0-4.0) 09/14/17 14:30 Baso % (Auto) 0.9 % (0.0-2.0) 09/14/17 14:30 Neut # 6.4 K/uL (1.8-7.0) 09/14/17 14:30 Lymph # 3.7 K/uL (1.0-4.3) 09/14/17 14:30 [place] # 0.7 K/uL (0.0-0.8) 09/14/17 14:30 Eos # 0.1 K/uL (0.0-0.7) 09/14/17 14:30 Baso # 0.1 K/uL (0.0-0.2) 09/14/17 14:30 Sodium 134 mmol/l (132-148) 09/15/17 05:30 Potassium 4.1 MMOL/L (3.6-5.0) 09/15/17 05:30 Chloride 102 mmol/L (98-107) 09/15/17 05:30 Carbon Dioxide 25 mmol/L (22-30) 09/15/17 05:30 Anion Gap 11 (10-20) 09/15/17 05:30 BUN 9 mg/dl (7-17) 09/15/17 05:30 Creatinine 0.6 mg/dl (0.7-1.2) L 09/15/17 05:30 Est GFR ( Amer) > 60 09/15/17 05:30 Est GFR (Non-Af Amer) > 60 09/15/17 05:30 Random Glucose 110 mg/dL (65-105) H 09/15/17 05:30 Calcium 8.0 mg/dL (8.4-10.2) L 09/15/17 05:30 Total Bilirubin 0.5 mg/dl (0.2-1.3) 09/15/17 05:30 AST 98 U/L (14-36) H 09/15/17 05:30 ALT 118 U/L (9-52) H 09/15/17 05:30 Alkaline Phosphatase 100 U/L (38-126) 09/15/17 05:30 Total Protein 6.7 G/DL (6.3-8.2) 09/15/17 05:30 Albumin 3.4 g/dL (3.5-5.0) L 09/15/17 05:30 Globulin 3.3 gm/dL (2.2-3.9) 09/15/17 05:30 Albumin/Globulin Ratio 1.0 (1.0-2.1) 09/15/17 05:30 Urine Opiates Screen Negative (NEGATIVE) 09/14/17 16:36 Urine Methadone Screen Negative (NEGATIVE) 09/14/17 16:36 Ur Barbiturates Screen Negative (NEGATIVE) 09/14/17 16:36 Ur Phencyclidine Scrn Negative (NEGATIVE) 09/14/17 16:36 Ur Amphetamines Screen Negative (NEGATIVE) 09/14/17 16:36 U Benzodiazepines Scrn Positive (NEGATIVE) 09/14/17 16:36 U Oth Cocaine Metabols Negative (NEGATIVE) 09/14/17 16:36 U Cannabinoids Screen Negative (NEGATIVE) 09/14/17 16:36 Alcohol, Quantitative 143 mg/dl (0-10) H 09/14/17 14:30 - Hospital Course Hospital Course: THis is a 51 y/o chronic alcoholic admitted for hyponatremia. Sodium was 122. She was given saline IVF and repeat sodium was 134. She denies any symptoms. She will be discharged on klonopin bid # 10 and advised follow up with PMD. Discharge Exam - Head Exam Head Exam: NORMAL INSPECTION - Eye Exam Eye Exam: Normal appearance - Respiratory Exam Respiratory Exam: Clear to PA & Lateral, NORMAL BREATHING PATTERN - GI/Abdominal Exam GI & Abdominal Exam: Normal Bowel Sounds - Neurological Exam Neurological exam: CN II-XII Intact, Oriented x3 - Psychiatric Exam Psychiatric exam: Normal Mood Discharge Plan - Discharge Medications Prescriptions: clonazePAM [Klonopin] 1 mg PO BID PRN #10 tab PRN Reason: Anxiety - Follow Up Plan Condition: FAIR Disposition: HOME/ ROUTINE Additional Instructions: follow up with PMD.
== END 2017-09-15 13:42 | disposition home or self-care (01) ==
LOC: H.ER 13:34 → H.ERHOLD 15:58 → H.TEL 18:37
PROVIDERS: ADMIT Family Medicine; ATTEND Family Medicine
DX: E87.1 Hypo-osmolality and hyponatremia (principal); F41.9 Anxiety disorder, unspecified; F17.200 Nicotine dependence, unspecified, uncomplicated; I10 Essential (primary) hypertension; K21.9 Gastro-esophageal reflux disease without esophagitis; F10.20 Alcohol dependence, uncomplicated; F32.9 Major depressive disorder, single episode, unspecified; F45.9 Somatoform disorder, unspecified; Z87.81 Personal history of (healed) traumatic fracture
CPT/HCPCS: 36415; 71020; 80053; 80320; 80324; 80345; 80346; 80349; 80353; 80358; 80361; 83992; 85025; 85027; 93005; 99282; G0378; J7040

== ENCOUNTER 2017-11-06 12:58 | Emergency (ER) | payer MEDICAID ==
[2017-11-06 12:58] VITALS: BMI 31.7
[2017-11-06 13:28] VITALS: BP 162/90; PULSE 89; RESP 16; TEMP 99; O2SAT 95
--- NOTE | 2017-11-06 14:02 | ED PDOC ---
HPI: General Adult Time Seen by Provider: 11/06/17 13:59 Chief Complaint (Nursing): Cough, Cold, Congestion Chief Complaint (Provider): cough, sore throat History Per: Patient Additional Complaint(s): 51-year-old female presents to emergency department with sore throat and cough ongoing for several days. Patient is taking Robitussin but this has not helped. She denies any chest pain or shortness of breath. PMD: none Past Medical History Reviewed: Historical Data, Nursing Documentation, Vital Signs Vital Signs: Last Vital Signs Temp 99 F 11/06/17 13:25 Pulse 89 11/06/17 13:25 Resp 16 11/06/17 13:25 BP 162/90 H 11/06/17 13:25 Pulse Ox 95 11/06/17 14:03 - Medical History PMH: Anxiety, Depression, Fractures (right ankle), GERD, HTN - Surgical History Other surgeries: right ankle surgery - Family History Family History: States: No Known Family Hx - Living Arrangements Living Arrangements: With Friends/Others - Social History Current smoker - smoking cessation education provided: No Alcohol: > 2 Drinks/Day Drugs: Denies - Home Medications Home Medications: Ambulatory Orders Medication Instructions Recorded Ranitidine HCl [Zantac] 300 mg PO DAILY 12/19/16 Enalapril Maleate [Vasotec] 10 mg PO BID #60 tab 05/29/17 Pantoprazole [Protonix EC Tab] 20 mg PO DAILY #30 ect 05/29/17 hydroCHLOROthiazide [Microzide] 12.5 mg PO DAILY #30 cap 05/29/17 clonazePAM [Klonopin] 1 mg PO BID PRN #10 tab 09/15/17 Albuterol HFA [Ventolin HFA 90 1 puff IH ASDIR #1 unit 11/06/17 mcg/actuation (8 g)] Azithromycin [Zithromax] 250 mg PO DAILY #6 tab 11/06/17 Benzonatate 200 mg PO TID PRN #20 capsule 11/06/17 - Allergies Allergies/Adverse Reactions: Allergies Allergy/AdvReac Type Severity Reaction Status Date / Time No Known Allergies Allergy Verified 11/06/17 13:24 Review of Systems ROS Statement: Except As Marked, All Systems Reviewed And Found Negative Constitutional: Positive for: Fever (subjective), Other (body aches). Negative for: Chills ENT: Positive for: Throat Pain Respiratory: Positive for: Cough Gastrointestinal: Negative for: Nausea, Vomiting Physical Exam - Reviewed Nursing Documentation Reviewed: Yes Vital Signs Reviewed: Yes - Physical Exam Appears: Positive for: Well, Non-toxic, No Acute Distress Skin: Negative for: Rash Eye Exam: Positive for: Normal appearance ENT: Positive for: Nasal Congestion, Pharyngeal Erythema, Tonsillar Swelling Cardiovascular/Chest: Positive for: Regular Rate, Rhythm Respiratory: Positive for: Normal Breath Sounds. Negative for: Wheezing, Respiratory Distress Gastrointestinal/Abdominal: Positive for: Soft. Negative for: Tenderness Neurologic/Psych: Positive for: Alert, Oriented - ECG O2 Sat by Pulse Oximetry: 95 Pulse Ox Interpretation: Normal - Other Rad CXR X-Ray: Interpreted by Me, Viewed By Me X-Ray Interpretation: no acute finding Medical Decision Making Medical Decision Makin51 year old with flu like symptoms Plan: CXR Flu swab Rapid strep and throat culture PO motrin and tylenol Flu and strep are negative. Will d/c with rx zithromax, tessalon perles and ventolin inhaler. Patient was referred to clinic for follow up. Disposition - Clinical Impression Clinical Impression: URI (upper respiratory infection) - Patient ED Disposition Is Patient to be Admitted: No Counseled Patient/Family Regarding: Studies Performed, Diagnosis, Need For Followup, Rx Given - Disposition Referrals: [facility] [Outside] Disposition: Routine/Home Disposition Time: 15:02 Condition: STABLE Additional Instructions: Take prescription medications as directed. [id number] Tylenol or Advil for body aches and fever as needed. Follow-up with primary doctor or clinic in 2 -3 days. Prescriptions: Albuterol HFA [Ventolin HFA 90 mcg/actuation (8 g)] 1 puff IH ASDIR #1 unit Azithromycin [Zithromax] 250 mg PO DAILY #6 tab Benzonatate 200 mg PO TID PRN #20 capsule PRN Reason: Cough Instructions: Upper Respiratory Infection (ED) Forms: [employer] (Telugu)
--- NOTE | 2017-11-06 14:53 | RAD ---
HISTORY: cough COMPARISON: 09/14/2017 TECHNIQUE: Chest PA and lateral FINDINGS: LUNGS: No consolidation PLEURA: No significant pleural effusion identified. No pneumothorax apparent. CARDIOVASCULAR: Cardiomegaly as before. OSSEOUS STRUCTURES: No significant abnormalities. VISUALIZED UPPER ABDOMEN: Normal. OTHER FINDINGS: None. IMPRESSION: No interval cardiopulmonary pathology appreciated
== END 2017-11-06 14:45 | disposition home or self-care (01) ==
LOC: H.ER 12:58
DX: J06.9 Acute upper respiratory infection, unspecified (principal); F32.9 Major depressive disorder, single episode, unspecified; F41.9 Anxiety disorder, unspecified; I10 Essential (primary) hypertension; K21.9 Gastro-esophageal reflux disease without esophagitis

== ENCOUNTER 2017-12-16 17:51 | Observation (INO) | payer MEDICAID ==
[2017-12-16 17:51] VITALS: BMI 31.7
[2017-12-16] MEDS ORDERED: Iohexol 240 (50 ml) PO ONE (18:47)
[2017-12-16] MEDS ORDERED: Multivitamin (MVI) 10 ML, Thiamine 100 MG, Folic Acid 1 MG in Sodium Chloride 0.9% 1,00... IV ONE (18:47)
[2017-12-16 19:20] LABS: BASO # 0.1 K/uL (0.0-0.2); BASO % 0.9 % (0.0-2.0); EOS # 0.1 K/uL (0.0-0.7); EOS % 1.8 % (0.0-4.0); LYMPH # 2.6 K/uL (1.0-4.3); LYMPH % 35.2 % (20.0-40.0); MEAN CELL VOLUME 96.7 fl (81.0-99.0); MEAN CORPUSCULAR HEMOGLOBIN 32.7 pg (27.0-31.0); MEAN CORPUSCULAR HGB CONC 33.8 g/dL (33.0-37.0); MEAN PLATELET VOLUME 9.6 fl (7.2-11.7); MONO # 0.6 K/uL (0.0-0.8); NEUT % 54.1 % (50.0-75.0); NRBC % 0.1 % (0.0-0.0); RBC 4.26 Mil/uL (3.80-5.20); RED CELL DISTRIBUTION WIDTH 13.7 % (11.5-14.5); WHITE BLOOD COUNT 7.4 K/uL (4.8-10.8)
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
[2017-12-16 19:51] LABS: HEMOGLOBIN 13.9 g/dL (12.0-16.0)
[2017-12-16] MEDS ORDERED: Iohexol 240 (50 ml) ONE (20:04)
[2017-12-16 20:12] LABS: ALBUMIN 4.2 g/dL (3.5-5.0); ALT/SGPT 257 U/L (9-52); AST/SGOT 241 U/L (14-36); BLOOD UREA NITROGEN 16 mg/dl (7-17); CALCIUM 10.5 mg/dL (8.4-10.2); GFR AFRICAN-AMERICAN > 60; GFR NON-AFRICAN AMERICAN > 60; LIPASE 747 U/L (23-300)
[2017-12-16] MEDS ORDERED: Sodium Chloride 0.9% 1,000 ML IV STA ×2 (20:14)
--- NOTE | 2017-12-16 20:53 | ED PDOC ---
- Laboratory Results Result Diagrams: 12/16/17 19:15 12/16/17 19:15 - ECG O2 Sat by Pulse Oximetry: 94 - Progress ED Course And Treament: Case endorsed to insurance underwriter from [employer] [facility] pending imaging, re-eval EXAM: CT Abdomen and Pelvis With Intravenous Contrast EXAM DATE/TIME: 12/16/2017 6:45 PM CLINICAL HISTORY: 52 years old, female; Pain; Abdominal pain; Epigastric; Additional info: Diffuse abdominal pain; Epigastric tenderness TECHNIQUE: Axial computed tomography images of the abdomen and pelvis with intravenous contrast. All CT scans at this facility use one or more dose reduction techniques, viz.: automated exposure control; ma/kV adjustment per patient size (including targeted exams where dose is matched to indication; i.e. head); or iterative reconstruction technique. Coronal and sagittal reformatted images were created and reviewed. CONTRAST: 90 mL of [id number] administered intravenously. COMPARISON: There are no prior studies for comparison. FINDINGS: Lower thorax: Heart size is normal. A coronary artery calcification There is a hiatal hernia. There is scarring at the lung bases. ABDOMEN: Liver: There is fatty infiltration of the liver. Gallbladder and bile ducts: Gallbladder is distended, 12 cm in length There is prominence of the common duct. Pancreas: unremarkable Spleen: unremarkable Adrenals: There is an asymmetric 2 cm cm right adrenal nodule. There is nodular thickening of the left adrenal. Kidneys and ureters: Kidneys and ureters are unremarkable. Stomach and bowel: Stomach is almost completely empty. Rotation is normal. Small bowel is partially opacified with oral contrast. There is no obstruction. Terminal ileum is unremarkable. Ileocecal region is unremarkable. There is moderate stool in the colon. Appendix: See stomach and bowel PELVIS: Bladder: unremarkable Reproductive: Uterus is unremarkable. There is prominence of the right adnexa. Right adnexa measures approximately 5.2 x 2.7 x 4.1 cm. Less left adnexa is less prominent, 3.7 x 2.3 x 2.6 cm. there are calcifications in both adnexa right greater than left. ABDOMEN and PELVIS: Intraperitoneal space: There is no free air or free fluid. Bones/joints: There are degenerative changes in the osseus structures. Soft tissues: There is a small fat containing umbilical hernia. Vasculature: There are vascular calcifications. Lymph nodes: There are multiple mildly enlarged retroperitoneal perivascular nodes. There are prominent/iliac nodes. IMPRESSION: Distended gallbladder, 12 cm in length with common duct prominence, sonography suggested if there is suspicion for gallstones/cholecystitis; 2 cm right adrenal nodule, possible adenoma; fatty liver; prominent adnexa bilaterally with adnexal calcifications; iliac and perivascular/retroperitoneal adenopathy Additional nonemergent findings as described above. EXAM: US Abdomen Limited, Right Upper Quadrant CLINICAL HISTORY: 52 years old, female; Pain; Abdominal pain; Epigastric; Patient HX: Alcoholism, epigastric pain; Additional info: Abd pain, elevated lfts TECHNIQUE: Real-time ultrasound of the right upper quadrant with image documentation. COMPARISON: CT - ABD PELVIS PO IV CONTRAST 2017-12-16 22:24 FINDINGS: Artifacts: Limited due to bowel gas shadowing. Limited due to shadowing from the ribs. Liver: The liver measures 17.6 cm. There is hepatic pedal flow in the portal vein. Gallbladder: Distended gallbladder measuring 10.5 cm without gallbladder wall thickening. No gallstones.There was no right upper quadrant tenderness during the sonographic examination. Correlation with patient's pain medication status is recommended. Common bile duct: The common bile duct measures 6 mm which is borderline prominent. No stones. Pancreas: The pancreas is not well-seen. The pancreatic duct measures 0.23 mm. Right kidney: Unremarkable. No stones. No solid mass. No hydronephrosis. Aorta: The visualized portions of the aorta appears unremarkable. IMPRESSION: 1. Nonspecific gallbladder distention without gallstones gallbladder wall thickening or pericholecystic fluid. Case discussed with ED attending, will admit for pancreatitis/IV hydration Case discussed with Dr. Magaña, Medical service on-call, for admission. Disposition - Clinical Impression Clinical Impression: Abdominal pain, Alcohol intoxication, Pancreatitis, acute - POA Present On Arrival: None - Disposition Disposition: Admitted as In-Patient Disposition Time: 02:49 Condition: FAIR
[2017-12-16 21:07] LABS: SQUAMOUS EPITHIAL 4 /hpf (0-5); URINE BACTERIA RARE (<OCC); URINE BILIRUBIN NEGATIVE (NEGATIVE); URINE BLOOD NEGATIVE (NEGATIVE); URINE CLARITY SLIGHTY-CLOUDY (Clear); URINE COLOR YELLOW (YELLOW); URINE GLUCOSE (UA) NEG (Normal); URINE LEUKOCYTE ESTERASE TRACE Leu/uL (Negative); URINE PROTEIN NEGATIVE (NEGATIVE); URINE UROBILINOGEN 0.2-1.0 mg/dL (0.2-1.0)
[2017-12-16] MEDS ORDERED: Sodium Chloride 0.9% 100 ML ONE (21:32)
[2017-12-16] MEDS ORDERED: Iohexol 300 100 ML IJ ONE (21:32)
--- NOTE | 2017-12-16 23:07 | CT ---
EXAM: CT Abdomen and Pelvis With Intravenous Contrast EXAM DATE/TIME: 12/16/2017 6:45 PM CLINICAL HISTORY: 52 years old, female; Pain; Abdominal pain; Epigastric; Additional info: Diffuse abdominal pain; Epigastric tenderness TECHNIQUE: Axial computed tomography images of the abdomen and pelvis with intravenous contrast. All CT scans at this facility use one or more dose reduction techniques, viz.: automated exposure control; ma/kV adjustment per patient size (including targeted exams where dose is matched to indication; i.e. head); or iterative reconstruction technique. Coronal and sagittal reformatted images were created and reviewed. CONTRAST: 90 mL of administered intravenously. COMPARISON: There are no prior studies for comparison. FINDINGS: Lower thorax: Heart size is normal. A coronary artery calcification There is a hiatal hernia. There is scarring at the lung bases. ABDOMEN: Liver: There is fatty infiltration of the liver. Gallbladder and bile ducts: Gallbladder is distended, 12 cm in length There is prominence of the common duct. Pancreas: unremarkable Spleen: unremarkable Adrenals: There is an asymmetric 2 cm cm right adrenal nodule. There is nodular thickening of the left adrenal. Kidneys and ureters: Kidneys and ureters are unremarkable. Stomach and bowel: Stomach is almost completely empty. Rotation is normal. Small bowel is partially opacified with oral contrast. There is no obstruction. Terminal ileum is unremarkable. Ileocecal region is unremarkable. There is moderate stool in the colon. Appendix: See stomach and bowel PELVIS: Bladder: unremarkable Reproductive: Uterus is unremarkable. There is prominence of the right adnexa. Right adnexa measures approximately 5.2 x 2.7 x 4.1 cm. Less left adnexa is less prominent, 3.7 x 2.3 x 2.6 cm. there are calcifications in both adnexa right greater than left. ABDOMEN and PELVIS: Intraperitoneal space: There is no free air or free fluid. Bones/joints: There are degenerative changes in the osseus structures. Soft tissues: There is a small fat containing umbilical hernia. Vasculature: There are vascular calcifications. Lymph nodes: There are multiple mildly enlarged retroperitoneal perivascular nodes. There are prominent/iliac nodes. IMPRESSION: Distended gallbladder, 12 cm in length with common duct prominence, sonography suggested if there is suspicion for gallstones/cholecystitis; 2 cm right adrenal nodule, possible adenoma; fatty liver; prominent adnexa bilaterally with adnexal calcifications; iliac and perivascular/retroperitoneal adenopathy Additional nonemergent findings as described above.
--- NOTE | 2017-12-17 08:24 | CARD ---
APPROVED REPORT EKG Measurement Heart [id number] VT [id number] <Conclusion> Sinus rhythm with premature atrial complexes Nonspecific ST and T wave abnormality Prolonged QT Abnormal ECG
--- NOTE | 2017-12-17 08:41 | RAD ---
HISTORY: abdominal pain COMPARISON: Chest radiographs 11/06/2017. FINDINGS: LUNGS: No active pulmonary disease. PLEURA: No significant pleural effusion identified, no pneumothorax apparent. CARDIOVASCULAR: Mild cardiomegaly appears stable. No pulmonary vascular derangement appreciated. OSSEOUS STRUCTURES: No significant abnormalities. VISUALIZED UPPER ABDOMEN: Normal. OTHER FINDINGS: None. IMPRESSION: Stable, mild cardiomegaly without pulmonary venous congestion. No acute infiltrate, pleural effusion or pneumothorax identified.
[2017-12-17] MEDS: Sodium Chloride 0.9% 1,000 ML IV SCH ×2 (09:11→19:46)
[2017-12-17] MEDS: Pantoprazole 40 mg EC Tab PO SCH (09:15)
[2017-12-17 09:31] LABS: ALB/GLOB RATIO 1.1 (1.0-2.1); ALBUMIN 3.6 g/dL (3.5-5.0); ALT/SGPT 221 U/L (9-52); AST/SGOT 182 U/L (14-36); BLOOD UREA NITROGEN 12 mg/dl (7-17); GFR AFRICAN-AMERICAN > 60; GFR NON-AFRICAN AMERICAN > 60; LIPASE 196 U/L (23-300)
[2017-12-17 10:17] LABS: HEMOGLOBIN 12.6 g/dL (12.0-16.0); MEAN CELL VOLUME 96.5 fl (81.0-99.0); MEAN CORPUSCULAR HEMOGLOBIN 33.1 pg (27.0-31.0); MEAN CORPUSCULAR HGB CONC 34.3 g/dL (33.0-37.0); RBC 3.8 Mil/uL (3.80-5.20); RED CELL DISTRIBUTION WIDTH 13.7 % (11.5-14.5); WHITE BLOOD COUNT 5.4 K/uL (4.8-10.8)
--- NOTE | 2017-12-17 11:33 | US ---
HISTORY: Abdominal pain, elevated LFTs COMPARISON: 12/23/2013 TECHNIQUE: Sonographic evaluation of the right upper quadrant of the abdomen. FINDINGS: LIVER: Measures 17.6 cm in length. Patent portal vein. Portal venous flow: Hepatopetal. Unremarkeable echogenicity of the liver parenchyma. No mass. No intrahepatic bile duct dilatation. GALLBLADDER: Distended gallbladder. No gallstones. COMMON BILE DUCT: Measures 6.2 mm. No stones. No dilatation. PANCREAS: Unremarkable as visualized. No mass. No ductal dilatation. RIGHT KIDNEY: Measures 4.9 x 11.3 cm in length. Normal echogenicity. No calculus, mass, or hydronephrosis. AORTA: No aneurysmal dilatation. IVC: Unremarkable. OTHER FINDINGS: None . IMPRESSION: Distended gallbladder common no acute gallbladder abnormalities. Otherwise unremarkable study.
--- NOTE | 2017-12-17 17:17 | NM ---
PROCEDURE: Nuclear Medicine Hepatobiliary Scan HISTORY: Distended gallbladder COMPARISON: Limited abdomen ultrasound 12/17/[address] with contrast 12/16/2017. TECHNIQUE: 5.9 mCi of technetium 99m Mebrofenin was administered intravenously. Planar images of the abdomen were obtained at 5 min intervals to 60 mins. Delayed images were also obtained. FINDINGS: LIVER: Timely and homogenous uptake. COMMON BILE DUCT: identified at 10-15 mins. GALLBLADDER: identified at 15 mins. SMALL BOWEL: Identified at 120 mins. IMPRESSION: No definite nuclear evidence of cystic or common duct obstruction.
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
[2017-12-18] MEDS: Sodium Chloride 0.9% 1,000 ML IV SCH (04:25)
[2017-12-18 06:37] LABS: HEMOGLOBIN 12.8 g/dL (12.0-16.0); MEAN CELL VOLUME 94.9 fl (81.0-99.0); MEAN CORPUSCULAR HGB CONC 34.8 g/dL (33.0-37.0); RBC 3.88 Mil/uL (3.80-5.20); RED CELL DISTRIBUTION WIDTH 13.3 % (11.5-14.5); WHITE BLOOD COUNT 4.4 K/uL (4.8-10.8)
[2017-12-18 06:52] LABS: ALBUMIN 3.7 g/dL (3.5-5.0); ALT/SGPT 213 U/L (9-52); AST/SGOT 188 U/L (14-36); BLOOD UREA NITROGEN 13 mg/dl (7-17); CALCIUM 9.1 mg/dL (8.4-10.2); GFR AFRICAN-AMERICAN > 60; GFR NON-AFRICAN AMERICAN > 60
[2017-12-18 07:52] VITALS: BP 143/85; PULSE 67; RESP 20; TEMP 98.8
[2017-12-18] MEDS: Pantoprazole 40 mg EC Tab PO SCH (08:11)
[2017-12-18 11:01] VITALS: O2SAT 94
--- NOTE | 2017-12-18 13:47 | CP.PCM.DIS ---
Provider - Provider Date of Admission: 12/17/17 02:54 Attending physician: Timmy Magaña MD Time Spent in preparation of Discharge (in minutes): 30 Diagnosis - Discharge Diagnosis (1) Pancreatitis Status: Acute Hospital Course - Lab Results Lab Results: Most Recent Lab Values WBC 4.4 K/uL (4.8-10.8) L 12/18/17 05:40 RBC 3.88 Mil/uL (3.80-5.20) 12/18/17 05:40 Hgb 12.8 g/dL (12.0-16.0) 12/18/17 05:40 Hct 36.8 % (34.0-47.0) 12/18/17 05:40 MCV 94.9 fl (81.0-99.0) 12/18/17 05:40 MCH 33.0 pg (27.0-31.0) H 12/18/17 05:40 MCHC 34.8 g/dL (33.0-37.0) 12/18/17 05:40 RDW 13.3 % (11.5-14.5) 12/18/17 05:40 Plt Count 114 K/uL (130-400) L 12/18/17 05:40 MPV 9.6 fl (7.2-11.7) 12/16/17 19:15 Neut % (Auto) 54.1 % (50.0-75.0) 12/16/17 19:15 Lymph % (Auto) 35.2 % (20.0-40.0) 12/16/17 19:15 Fountain % (Auto) 8.0 % (0.0-10.0) 12/16/17 19:15 Eos % (Auto) 1.8 % (0.0-4.0) 12/16/17 19:15 Baso % (Auto) 0.9 % (0.0-2.0) 12/16/17 19:15 Neut # (Auto) 4.0 K/uL (1.8-7.0) 12/16/17 19:15 Lymph # (Auto) 2.6 K/uL (1.0-4.3) 12/16/17 19:15 Fountain # (Auto) 0.6 K/uL (0.0-0.8) 12/16/17 19:15 Eos # (Auto) 0.1 K/uL (0.0-0.7) 12/16/17 19:15 Baso # (Auto) 0.1 K/uL (0.0-0.2) 12/16/17 19:15 Sodium 139 mmol/l (132-148) 12/18/17 05:40 Potassium 4.1 MMOL/L (3.6-5.0) 12/18/17 05:40 Chloride 101 mmol/L (98-107) 12/18/17 05:40 Carbon Dioxide 23 mmol/L (22-30) 12/18/17 05:40 Anion Gap 19 (10-20) 12/18/17 05:40 BUN 13 mg/dl (7-17) 12/18/17 05:40 Creatinine 0.6 mg/dl (0.7-1.2) L 12/18/17 05:40 Est GFR ( Amer) > 60 12/18/17 05:40 Est GFR (Non-Af Amer) > 60 12/18/17 05:40 Random Glucose 103 mg/dL (65-105) 12/18/17 05:40 Calcium 9.1 mg/dL (8.4-10.2) 12/18/17 05:40 Magnesium 1.6 MG/DL (1.6-2.3) 12/17/17 09:10 Total Bilirubin 0.8 mg/dl (0.2-1.3) 12/18/17 05:40 AST 188 U/L (14-36) H 12/18/17 05:40 ALT 213 U/L (9-52) H 12/18/17 05:40 Alkaline Phosphatase 127 U/L (38-126) H 12/18/17 05:40 Total Protein 7.3 G/DL (6.3-8.2) 12/18/17 05:40 Albumin 3.7 g/dL (3.5-5.0) 12/18/17 05:40 Globulin 3.7 gm/dL (2.2-3.9) 12/18/17 05:40 Albumin/Globulin Ratio 1.0 (1.0-2.1) 12/18/17 05:40 Lipase 196 U/L (23-300) 12/17/17 09:10 Urine Color Yellow (YELLOW) 12/16/17 20:56 Urine Clarity Slighty-cloudy (Clear) 12/16/17 20:56 Urine pH 6.0 (5.0-8.0) 12/16/17 20:56 Ur Specific [place] 1.014 (1.003-1.030) 12/16/17 20:56 Urine Protein Negative mg/dL (NEGATIVE) 12/16/17 20:56 Urine Glucose (UA) Neg mg/dL (Normal) 12/16/17 20:56 Urine Ketones Negative mg/dL (NEGATIVE) 12/16/17 20:56 Urine Blood Negative (NEGATIVE) 12/16/17 20:56 Urine Nitrate Negative (NEGATIVE) 12/16/17 20:56 Urine Bilirubin Negative (NEGATIVE) 12/16/17 20:56 Urine Urobilinogen 0.2-1.0 mg/dL (0.2-1.0) 12/16/17 20:56 Ur Leukocyte Esterase Trace Wilmer/uL (Negative) 12/16/17 20:56 Urine RBC (Auto) 3 /hpf (0-3) 12/16/17 20:56 Urine Microscopic WBC 3 /hpf (0-5) 12/16/17 20:56 Ur Squamous Epith Cells 4 /hpf (0-5) 12/16/17 20:56 Urine Bacteria Rare (<OCC) 12/16/17 20:56 Alcohol, Quantitative 145 mg/dl (0-10) H 12/16/17 19:15 - Hospital Course Hospital Course: 52 year old female with pmhx of HTN, anxiety who presented with c/o of abdominal pain. Pt was found to have pancreatitis secondary to alcohol use. The patient was hydrated and tolerated diet. The HIDA scan was normal. The patient was discharged home with f/u instructions Discharge Exam - Head Exam Head Exam: ATRAUMATIC, NORMOCEPHALIC - Respiratory Exam Respiratory Exam: Clear to PA & Lateral, NORMAL BREATHING PATTERN - Cardiovascular Exam Cardiovascular Exam: REGULAR RHYTHM, +S1, +S2 - GI/Abdominal Exam GI & Abdominal Exam: Normal Bowel Sounds, Soft - Neurological Exam Neurological exam: Alert, Oriented x3 - Psychiatric Exam Psychiatric exam: Normal Affect - Skin Skin Exam: Normal Color, Warm Discharge Plan - Follow Up Plan Condition: STABLE Disposition: HOME/ ROUTINE Instructions: Pancreatitis (DC) Additional Instructions: follow up with your primary MD 7-10 days. Referrals: [facility] [Outside]
== END 2017-12-18 11:32 | disposition home or self-care (01) ==
LOC: H.ER 17:51 → H.ERHOLD 12-17 02:54 → H.MEDSURG1 12-17 06:16
PROVIDERS: ADMIT Internal Medicine; ATTEND Internal Medicine
DX: K85.20 Alcohol induced acute pancreatitis without necrosis or infection (principal); F10.129 Alcohol abuse with intoxication, unspecified; Y90.6 Blood alcohol level of 120-199 mg/100 ml; F41.9 Anxiety disorder, unspecified; F32.9 Major depressive disorder, single episode, unspecified; K21.9 Gastro-esophageal reflux disease without esophagitis; I10 Essential (primary) hypertension; F17.210 Nicotine dependence, cigarettes, uncomplicated; K82.8 Other specified diseases of gallbladder
CPT/HCPCS: 36415; 71045; 74177; 76705; 78227; 80053; 80320; 81003; 83690; 83735; 85025; 85027; 93005; 96374; 99283; A9537; G0378; J3411; J7040; Q9966; Q9967

== ENCOUNTER 2018-03-26 16:31 | Emergency (ER) | payer MEDICAID ==
[2018-03-26 16:32] VITALS: BMI 31.7
[2018-03-26] MEDS ORDERED: Iohexol 240 (50 ml) PO ONE (17:29)
[2018-03-26] MEDS ORDERED: Lactated Ringer's 1,000 ML IV SCH (17:30)
[2018-03-26] MEDS ORDERED: Iohexol 240 (50 ml) ONE (17:42)
[2018-03-26 17:46] LABS: BASO # 0.1 K/uL (0.0-0.2); BASO % 0.8 % (0.0-2.0); EOS # 0.2 K/uL (0.0-0.7); EOS % 2.5 % (0.0-4.0); HEMOGLOBIN 12.6 g/dL (12.0-16.0); LYMPH # 3.2 K/uL (1.0-4.3); LYMPH % 36.8 % (20.0-40.0); MEAN CELL VOLUME 100.5 fl (81.0-99.0); MEAN CORPUSCULAR HEMOGLOBIN 34.4 pg (27.0-31.0); MEAN CORPUSCULAR HGB CONC 34.2 g/dL (33.0-37.0); MEAN PLATELET VOLUME 8.8 fl (7.2-11.7); MONO # 0.8 K/uL (0.0-0.8); MONO % 9.7 % (0.0-10.0); NEUT # 4.4 K/uL (1.8-7.0); NEUT % 50.2 % (50.0-75.0); RBC 3.68 Mil/uL (3.80-5.20); RED CELL DISTRIBUTION WIDTH 13.2 % (11.5-14.5); WHITE BLOOD COUNT 8.7 K/uL (4.8-10.8)
[2018-03-26 17:57] LABS: ALBUMIN 3.9 g/dL (3.5-5.0); ALT/SGPT 110 U/L (9-52); AST/SGOT 155 U/L (14-36); BLOOD UREA NITROGEN 14 mg/dl (7-17); CALCIUM 9.1 mg/dL (8.4-10.2); GFR AFRICAN-AMERICAN > 60; GFR NON-AFRICAN AMERICAN > 60; LIPASE 293 U/L (23-300)
[2018-03-26] MEDS ORDERED: Iohexol 300 100 ML IJ ONE (19:10)
[2018-03-26] MEDS ORDERED: Sodium Chloride 0.9% 50 ML IV ONE (19:10)
--- NOTE | 2018-03-26 20:03 | ED PDOC ---
HPI: Abdomen Time Seen by Provider: 03/26/18 17:09 Chief Complaint (Nursing): Abdominal Pain History Per: Patient Additional Complaint(s): Pt. states for the past 2 days she's had epigastric pain and LLQ pain. Pt. is concerned it is pancreatitis as she has a hx of it. Admits to drinking alcohol daily. Denies N/V/D, fever, chest pain, melena, hematochezia, BRBPR. Past Medical History Reviewed: Historical Data, Nursing Documentation, Vital Signs Vital Signs: Last Vital Signs Temp 98.7 F 03/26/18 16:41 Pulse 80 03/26/18 16:41 Resp 16 03/26/18 16:41 BP 127/76 03/26/18 16:41 Pulse Ox 96 03/26/18 16:41 - Medical History PMH: Anxiety, Depression, Fractures (right ankle), GERD, HTN Denies: Chronic Kidney Disease - Family History Family History: States: No Known Family Hx - Home Medications Home Medications: Ambulatory Orders Medication Instructions Recorded Enalapril Maleate [Vasotec] 10 mg PO BID #60 tab 05/29/17 Pantoprazole [Protonix EC Tab] 20 mg PO DAILY #30 ect 05/29/17 clonazePAM [Klonopin] 1 mg PO BID PRN #10 tab 09/15/17 - Allergies Allergies/Adverse Reactions: Allergies Allergy/AdvReac Type Severity Reaction Status Date / Time No Known Allergies Allergy Verified 11/06/17 13:24 Review of Systems ROS Statement: Except As Marked, All Systems Reviewed And Found Negative Gastrointestinal: Positive for: Abdominal Pain Physical Exam - Reviewed Nursing Documentation Reviewed: Yes Vital Signs Reviewed: Yes - Physical Exam Appears: Positive for: Well, Non-toxic, No Acute Distress Head Exam: Positive for: ATRAUMATIC, NORMAL INSPECTION, NORMOCEPHALIC Skin: Positive for: Normal Color, Warm. Negative for: Rash Eye Exam: Positive for: Normal appearance Neck: Positive for: Normal, Painless ROM Cardiovascular/Chest: Positive for: Regular Rate, Rhythm Respiratory: Positive for: CNT, Normal Breath Sounds Gastrointestinal/Abdominal: Positive for: Normal Exam, Soft, Tenderness (LLQ tenderness), Other (no epigastric tenderness). Negative for: Distended, Guarding Back: Positive for: Normal Inspection. Negative for: L CVA Tenderness, R CVA Tenderness Extremity: Positive for: Normal ROM Neurologic/Psych: Positive for: Alert, Oriented. Negative for: Aphasia, Facial Droop - Laboratory Results Result Diagrams: 03/26/18 17:40 03/26/18 17:40 - ECG O2 Sat by Pulse Oximetry: 96 - Progress ED Course And Treament: Labs, CT abd/pelvis w/ PO and IV contrast, IV LR bolus x 1 ordered. Disposition - Clinical Impression Clinical Impression: Abdominal pain in female - Patient ED Disposition Is Patient to be Admitted: Transfer of Care (Signed out to Cheryl XIONG pending CT results and re-evaluation.) - Disposition Disposition Time: 20:04 Condition: STABLE
--- NOTE | 2018-03-26 20:53 | ED PDOC ---
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 All CT scans at this facility use one or more dose reduction techniques, viz.: automated exposure control; ma/kV adjustment per patient size (including targeted exams where dose is matched to indication; i.e. head); or iterative reconstruction technique. CONTRAST: 95 mL of Omnipaque administered intravenously. COMPARISON: CT - ABD PELVIS PO IV CONTRAST 2017-12-16 22:24 FINDINGS: Lung bases: Unremarkable. No mass. No consolidation. Mediastinum: Moderate hiatal hernia. ABDOMEN: Liver: Hepatomegaly. Hepatic steatosis.Lobular contour of the liver, correlate for chronic hepatic parenchymal disease. Gallbladder and bile ducts: Unremarkable. No calcified stones. No ductal dilation. Pancreas: Unremarkable. No ductal dilation. Spleen: Unremarkable. No splenomegaly. Adrenals: 1.4 cm stable right adrenal nodule. Kidneys and ureters: Unremarkable. No solid mass. No hydronephrosis. Stomach and bowel: Oral contrast reaches the proximate descending colon.Scattered diverticulosis of the colon. No evidence of diverticulitis. PELVIS: Appendix: No findings to suggest acute appendicitis. Bladder: Unremarkable. Reproductive: 4.6 cm complex cystic lesion with associated calcification is noted in the right adnexa, similar to the prior. Calcification in the left adnexa, similar to the prior. If clinically warranted, Correlate with pelvic ultrasound. ABDOMEN and PELVIS: Intraperitoneal space: Unremarkable. No free air. No significant fluid collection. Bones/joints: Spondylosis No dislocation. Soft tissues: Unremarkable. Vasculature: Unremarkable. No abdominal aortic aneurysm. Lymph nodes: Periportal lymph node measures 2.5 x 1.7 cm. Multiple scattered small retroperitoneal lymph nodes are noted, largest measures up to 1.1 cm in short axis. Peripancreatic lymph node measures 2.5 x 1.3 cm. Tiny gastrohepatic lymph nodes noted. IMPRESSION: 1. Hepatomegaly. Hepatic steatosis.Lobular contour of the liver, correlate for chronic hepatic parenchymal disease. 2. Moderate hiatal hernia. Small fat-containing umbilical hernia 3. Scattered diverticulosis of the colon. No evidence of diverticulitis. 4. 4.6 cm complex cystic lesion with associated calcification is noted in the right adnexa, similar to the prior. Calcification in the left adnexa, similar to the prior. If clinically warranted, Correlate with pelvic ultrasound. 5. Upper abdominal lymphadenopathy as described above. EXAM: US Pelvis, Transvaginal EXAM DATE/TIME: 03/26/2018 8:48 PM CLINICAL HISTORY: 52 years old, female; Pain; Pelvic pain; Additional info: Left lower abd pain TECHNIQUE: Real-time transvaginal pelvic ultrasound (complete) with image documentation. Transvaginal imaging was used for better evaluation of the endometrium and adnexa. COMPARISON: CT - ABD PELVIS PO IV CONTRAST 2018-03-26 19:52 FINDINGS: The uterus is normal. The endometrium measures 2 mm. There is a 1.7 cm cyst in the right ovary. There is a 1 cm prominent follicle/small cyst in the left ovary. Color flow and doppler vascular waveforms were demonstrated to both ovaries. There is no significant free fluid. IMPRESSION: Small ovarian cysts. 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
[2018-03-26 22:32] LABS: SQUAMOUS EPITHIAL < 1 /hpf (0-5); URINE BILIRUBIN NEGATIVE (NEGATIVE); URINE BLOOD NEGATIVE (NEGATIVE); URINE CLARITY CLEAR (Clear); URINE COLOR STRAW (YELLOW); URINE GLUCOSE (UA) NEG (Normal); URINE LEUKOCYTE ESTERASE NEG Leu/uL (Negative); URINE PROTEIN NEGATIVE (NEGATIVE); URINE UROBILINOGEN 0.2-1.0 mg/dL (0.2-1.0)
[2018-03-26 22:57] VITALS: BP 166/100; PULSE 85; RESP 18; TEMP 98.4; O2SAT 98
--- NOTE | 2018-03-27 08:45 | CT ---
PROCEDURE: CT Abdomen and Pelvis with contrast HISTORY: LLQ and epigastric pain COMPARISON: 12/16/2017. CT abdomen and pelvis. March 26, 2018. Pelvic ultrasound TECHNIQUE: Contrast dose: 95 cc Omnipaque 300 go Radiation dose: Total exam DLP = 1096.59 bold mGy-cm. This CT exam was performed using one or more of the following dose reduction techniques: Automated exposure control, adjustment of the mA and/or kV according to patient size, and/or use of iterative reconstruction technique. FINDINGS: LOWER THORAX: Stable, moderate hiatal hernia. LIVER: Hepatic steatosis. No focal masses. No intrahepatic bile duct dilatation or perihepatic ascites. GALLBLADDER AND BILE DUCTS: Unremarkable. PANCREAS: Unremarkable. No gross lesion or ductal dilatation. SPLEEN: Unremarkable. ADRENALS: Unremarkable. No mass. KIDNEYS AND URETERS: Unremarkable. No hydronephrosis. No solid mass. VASCULATURE: Unremarkable. No aortic aneurysm. BOWEL: Unremarkable. No obstruction. No gross mural thickening. APPENDIX: Normal appendix. PERITONEUM: Unremarkable. No free fluid. No free air. LYMPH NODES: Unremarkable. No enlarged lymph nodes. BLADDER: Unremarkable. REPRODUCTIVE: Cystic adnexal masses bilaterally unchanged. BONES: No acute fracture. OTHER FINDINGS: None. IMPRESSION: No acute findings related to/accounting for the clinical presentation. No significant interval change compared to the prior examination(s). Additional benign and/or incidental findings described above. Concordant results (preliminary interpretation) provided by [facility]. Procedure Completed: 19:56 Preliminary ([facility]) Report: Dictated and Authenticated: 22:17 Final Interpretation: 08:42. March 27, 2018.
--- NOTE | 2018-03-27 12:19 | US ---
HISTORY: Left lower quadrant pain 2 days duration Postmenopausal. LMP 5 years ago COMPARISON: None available. TECHNIQUE: Transvaginal only. Real -time technique with 2D, duplex and color Doppler FINDINGS: UTERUS: Measures 1.6 x 2.3 x 4.9 cm. Normal in size and appearance. No fibroid or other mass lesion seen. ENDOMETRIUM: Measures 1.8 mm in diameter. Unremarkable. CERVIX: No cervical abnormality identified. RIGHT OVARY: Measures 1.9 x 2 x 3 cm. No solid mass. Normal flow. Simple cyst 1.7 x 1.8 x 1.7 cm LEFT OVARY: Measures 0.8 x 2.1 x 1.8 cm. No solid mass. Normal flow. Simple cyst 1.1 x 1.0 cm FREE FLUID: No significant free fluid noted. OTHER FINDINGS: None. IMPRESSION: Simple adnexal cysts bilaterally. Otherwise unremarkable study. Concordant results (preliminary interpretation) provided by [facility]. Procedure Completed: 21:43 Preliminary ([facility]) Report: Dictated and Authenticated: 22:17 Final Interpretation: 12:17 March 27, 2018.
== END 2018-03-26 22:59 | disposition home or self-care (01) ==
LOC: H.ER 16:31
DX: N83.201 Unspecified ovarian cyst, right side (principal); R10.9 Unspecified abdominal pain; K44.9 Diaphragmatic hernia without obstruction or gangrene; K42.9 Umbilical hernia without obstruction or gangrene; K57.30 Diverticulosis of large intestine without perforation or abscess without bleeding; K76.0 Fatty (change of) liver, not elsewhere classified; F32.9 Major depressive disorder, single episode, unspecified; F41.9 Anxiety disorder, unspecified; I10 Essential (primary) hypertension; Z78.0 Asymptomatic menopausal state
CPT/HCPCS: 74177; 76830; 80053; 80320; 81003; 81025; 83690; 85025; 96360; 99284; J7120; Q9966; Q9967

== ENCOUNTER 2018-05-05 16:50 | Emergency (ER) | payer MEDICAID ==
[2018-05-05 16:50] VITALS: BMI 31.7
[2018-05-05] MEDS ORDERED: Sodium Chloride 0.9% 1,000 ML IV STA (18:29)
--- NOTE | 2018-05-05 19:09 | ED PDOC ---
HPI: Abdomen Time Seen by Provider: 05/05/18 18:20 Chief Complaint (Nursing): Abdominal Pain Chief Complaint (Provider): Abdominal pain History Per: Patient History/Exam Limitations: no limitations Onset/Duration Of Symptoms: Days (1) Outside of [place] travel?: No Current Symptoms Are (Timing): Still Present Additional Complaint(s): 52yo female, history of pancreatitis, anxiety, depression, GERD and hypertension , comes to ER with complaints of abdominal pain x 1 days. Patient states she is here and concerned this might be due to pancreatitis. Patient states she drinks every day. She denies any associated vomiting, diarrhea, and offers no additional complaints. Past Medical History Reviewed: Historical Data, Nursing Documentation, Vital Signs Vital Signs: Last Vital Signs Temp 98.6 F 05/05/18 16:54 Pulse 87 05/05/18 16:54 Resp 18 05/05/18 16:54 BP 121/79 05/05/18 16:54 Pulse Ox 95 05/05/18 16:54 - Medical History PMH: Anxiety, Depression, Fractures (right ankle), GERD, HTN Denies: Chronic Kidney Disease - Surgical History Surgical History: No Surg Hx - Family History Family History: States: No Known Family Hx - Home Medications Home Medications: Ambulatory Orders Medication Instructions Recorded Enalapril Maleate [Vasotec] 10 mg PO BID #60 tab 05/29/17 Pantoprazole [Protonix EC Tab] 20 mg PO DAILY #30 ect 05/29/17 clonazePAM [Klonopin] 1 mg PO BID PRN #10 tab 09/15/17 - Allergies Allergies/Adverse Reactions: Allergies Allergy/AdvReac Type Severity Reaction Status Date / Time No Known Allergies Allergy Verified 11/06/17 13:24 Review of Systems ROS Statement: Except As Marked, All Systems Reviewed And Found Negative Constitutional: Negative for: Fever, Chills Cardiovascular: Negative for: Chest Pain Respiratory: Negative for: Shortness of Breath Gastrointestinal: Positive for: Abdominal Pain. Negative for: Nausea, Vomiting , Diarrhea Physical Exam - Reviewed Nursing Documentation Reviewed: Yes Vital Signs Reviewed: Yes - Physical Exam Appears: Positive for: Non-toxic, No Acute Distress Head Exam: Positive for: ATRAUMATIC, NORMAL INSPECTION, NORMOCEPHALIC Skin: Positive for: Normal Color Eye Exam: Positive for: Normal appearance Neck: Positive for: Supple Cardiovascular/Chest: Positive for: Regular Rate, Rhythm Respiratory: Positive for: Normal Breath Sounds Gastrointestinal/Abdominal: Positive for: Soft, Tenderness (mild epigastric). Negative for: Mass, Guarding, Rebound Extremity: Positive for: Normal ROM Neurologic/Psych: Positive for: Alert, Oriented. Negative for: Motor/Sensory Deficits - ECG O2 Sat by Pulse Oximetry: 95 (RA) Pulse Ox Interpretation: Normal Medical Decision Making Medical Decision Making: Impression: Abdominal pain, r/o pancreatitis Plan: -- Patient recently had CT scan in March which was negative. -- Labs -- Pepcid 20mg IV -- IV Fluids Time: 1899 Patient signed out to Dr. Avila pending reeval and final dispo. Scribe Attestation: Documented by Yesenia Goldman, acting as a scribe for Eitan Alberts MD. Provider Scribe Attestation: All medical record entries made by the Scribe were at my direction and personally dictated by me. I have reviewed the chart and agree that the record accurately reflects my personal performance of the history, physical exam, medical decision making, and the department course for this patient. I have also personally directed, reviewed, and agree with the discharge instructions and disposition. Disposition - Patient ED Disposition Is Patient to be Admitted: Transfer of Care - Disposition Disposition: Transfer of Care Disposition Time: 19:00 Condition: STABLE Patient Signed Over To: Greyson Avila
[2018-05-05 19:23] LABS: BASO # 0.1 K/uL (0.0-0.2); BASO % 1.2 % (0.0-2.0); EOS # 0.1 K/uL (0.0-0.7); EOS % 1.9 % (0.0-4.0); HEMOGLOBIN 12.3 g/dL (12.0-16.0); LYMPH # 3.7 K/uL (1.0-4.3); LYMPH % 47.9 % (20.0-40.0); MEAN CELL VOLUME 96.1 fl (81.0-99.0); MEAN CORPUSCULAR HEMOGLOBIN 32.9 pg (27.0-31.0); MEAN CORPUSCULAR HGB CONC 34.3 g/dL (33.0-37.0); MONO # 0.6 K/uL (0.0-0.8); MONO % 8.3 % (0.0-10.0); NEUT # 3.2 K/uL (1.8-7.0); NEUT % 40.7 % (50.0-75.0); NRBC % 0.1 % (0.0-0.0); RBC 3.72 Mil/uL (3.80-5.20); RED CELL DISTRIBUTION WIDTH 12.6 % (11.5-14.5); WHITE BLOOD COUNT 7.8 K/uL (4.8-10.8)
--- NOTE | 2018-05-05 19:25 | ED PDOC ---
- Laboratory Results Result Diagrams: 05/05/18 19:19 05/05/18 19:19 - ECG O2 Sat by Pulse Oximetry: 95 (RA) Pulse Ox Interpretation: Normal Medical Decision Making Medical Decision Making: Time: 1899 Patient signed out to me by Dr. Alberts pending labs, reassessment,. Time: 05:40 --Labs reviewed and reveal no clinically significant abnormalities. Patient is stable for discharge after being allowed to sleep in the ED overnight. Diagnosis is abdominal pain and intoxication. Scribe Attestation: Documented by Yesenia Goldman, acting as a scribe for Greyson Avila MD. Provider Scribe Attestation: All medical record entries made by the Scribe were at my direction and personally dictated by me. I have reviewed the chart and agree that the record accurately reflects my personal performance of the history, physical exam, medical decision making, and the department course for this patient. I have also personally directed, reviewed, and agree with the discharge instructions and disposition. Disposition - Clinical Impression Clinical Impression: Alcohol abuse, Abdominal pain in female - POA Present On Arrival: None - Disposition Disposition: Routine/Home Disposition Time: 05:40 Condition: STABLE Additional Instructions: RAFA TAYLOR, thank you for letting us take care of you today. Your provider was Greyson Avila MD and you were treated for ABD PAIN. The emergency medical care you received today was directed at your acute symptoms. If you were prescribed any medication, please fill it and take as directed. It may take several days for your symptoms to resolve. Return to the Emergency Department if your symptoms worsen, do not improve, or if you have any other problems. Please contact your doctor or call one of the physicians/clinics you have been referred to that are listed on the Patient Visit Information form that is included in your discharge packet. Bring any paperwork you were given at discharge with you along with any medications you are taking to your follow up visit. Our treatment cannot replace ongoing medical care by a primary care provider outside of the emergency department. Thank you for allowing the [facility] team to be part of your care today. If you had an X-Ray or CT scan: A Radiologist will review the ED reading if any change in treatment is needed we will contact you. If you had a blood, urine, or wound culture: It will take several days for the results, if any change in treatment is needed we will contact you. If you had an STI test: It will take 48 hours for the results. Please call after 1 week if you have not heard back. Instructions: Alcohol Intoxication (ED), Abuse of Alcohol (ED), Alcohol Dependence (ED) Forms: [facility] (Estonian)
[2018-05-05 19:33] LABS: ALB/GLOB RATIO 1.1 (1.0-2.1); ALT/SGPT 136 U/L (9-52); AST/SGOT 137 U/L (14-36); BLOOD UREA NITROGEN 11 mg/dl (7-17); CALCIUM 8.7 mg/dL (8.4-10.2); GFR AFRICAN-AMERICAN > 60; GFR NON-AFRICAN AMERICAN > 60; LIPASE 147 U/L (23-300)
[2018-05-06 06:40] VITALS: BP 136/92; PULSE 84; RESP 17; TEMP 98.3; O2SAT 97
== END 2018-05-06 06:11 | disposition home or self-care (01) ==
LOC: SUPCPDRO 16:50 → H.ER 16:50
DX: R10.2 Pelvic and perineal pain (principal); F10.10 Alcohol abuse, uncomplicated; Z86.59 Personal history of other mental and behavioral disorders; I10 Essential (primary) hypertension
CPT/HCPCS: 80053; 80320; 81025; 83690; 85025; 96374; 99285; J7030

== ENCOUNTER 2018-05-16 04:33 | Emergency (ER) | payer MEDICAID ==
[2018-05-16 04:33] VITALS: BMI 31.7
[2018-05-16 04:59] VITALS: RESP 16; TEMP 98; O2SAT 98
--- NOTE | 2018-05-16 05:07 | ED PDOC ---
- ECG O2 Sat by Pulse Oximetry: 98 Disposition - Disposition
--- NOTE | 2018-05-16 05:10 | ED PDOC ---
HPI: General Adult Time Seen by Provider: 05/16/18 05:04 Chief Complaint (Nursing): Anxiety Chief Complaint (Provider): anxiety History Per: Patient Additional Complaint(s): 52 year old female with history of alcohol abuse and anxiety presents to emergency department requesting medication refill for Klonopin. Patient states she ran out of her couple of days ago. She denies suicidal or homicidal ideation at this time. PMD: Dr. Farrar Past Medical History Reviewed: Historical Data, Nursing Documentation, Vital Signs Vital Signs: Last Vital Signs Temp 98 F 05/16/18 04:57 Pulse 98 H 05/16/18 04:57 Resp 16 05/16/18 04:57 BP 154/83 H 05/16/18 04:57 Pulse Ox 98 05/16/18 04:57 - Medical History PMH: Anxiety, Depression, GERD, HTN - Surgical History Other surgeries: right ankle fracture - Family History Family History: States: No Known Family Hx - Living Arrangements Living Arrangements: Alone - Social History Current smoker - smoking cessation education provided: No Alcohol: > 2 Drinks/Day Drugs: Denies - Home Medications Home Medications: Ambulatory Orders Medication Instructions Recorded Enalapril Maleate [Vasotec] 10 mg PO BID #60 tab 05/29/17 Pantoprazole [Protonix EC Tab] 20 mg PO DAILY #30 ect 05/29/17 clonazePAM [Klonopin] 1 mg PO BID PRN #10 tab 09/15/17 - Allergies Allergies/Adverse Reactions: Allergies Allergy/AdvReac Type Severity Reaction Status Date / Time No Known Allergies Allergy Verified 11/06/17 13:24 Review of Systems ROS Statement: Except As Marked, All Systems Reviewed And Found Negative Psych: Positive for: Anxiety. Negative for: Suicidal ideation Physical Exam - Reviewed Nursing Documentation Reviewed: Yes Vital Signs Reviewed: Yes - Physical Exam Appears: Positive for: Well, Non-toxic, No Acute Distress Skin: Positive for: Normal Color. Negative for: Rash Eye Exam: Positive for: Normal appearance Cardiovascular/Chest: Positive for: Regular Rate, Rhythm Respiratory: Positive for: Normal Breath Sounds. Negative for: Wheezing, Respiratory Distress Back: Positive for: Normal Inspection Extremity: Positive for: Normal ROM Neurologic/Psych: Positive for: Alert, Oriented, Gait (steady) - ECG O2 Sat by Pulse Oximetry: 98 Pulse Ox Interpretation: Normal Medical Decision Making Medical Decision Makin52 year old female with history of anxiety. Plan: 1 mg PO klonopin Patient is due for refill of klonopin from her PMD. She states she has an appt Saturday with her doctor for refill. Disposition - Clinical Impression Clinical Impression: Anxiety - Patient ED Disposition Is Patient to be Admitted: No Counseled Patient/Family Regarding: Need For Followup - Disposition Referrals: Katie Farrar MD [Staff Provider] - Disposition: Routine/Home Disposition Time: 05:10 Condition: STABLE Additional Instructions: FOLLOW UP URIEL WITH PRIMARY CARE DOCTOR Instructions: Anxiety, Adult (DC) Forms: [facility] (Persian)
[2018-05-16 05:50] VITALS: BP 143/86; PULSE 88
== END 2018-05-16 05:50 | disposition home or self-care (01) ==
LOC: H.ER 04:33
DX: F41.9 Anxiety disorder, unspecified (principal)

== ENCOUNTER 2018-07-03 15:54 | Emergency (ER) | payer MEDICAID ==
[2018-07-03 15:54] VITALS: BMI 31.7
[2018-07-03 16:01] VITALS: TEMP 99.2; O2SAT 96
--- NOTE | 2018-07-03 17:13 | ED PDOC ---
HPI: Abdomen Time Seen by Provider: 07/03/18 16:05 Chief Complaint (Nursing): Abdominal Pain Chief Complaint (Provider): Abdominal pain History Per: Patient Additional Complaint(s): C/O abdominal pain today - HX of acid reflux. Pt also has HX of alcohol abuse and drank alcohol today Past Medical History Reviewed: Historical Data, Nursing Documentation, Vital Signs Vital Signs: Last Vital Signs Temp 99.2 F 07/03/18 15:58 Pulse 71 07/03/18 15:58 Resp 18 07/03/18 15:58 BP 167/95 H 07/03/18 15:58 Pulse Ox 96 07/03/18 17:12 - Medical History PMH: Anxiety, Depression, GERD, HTN - Family History Family History: States: Unknown Family Hx - Living Arrangements Living Arrangements: Other - Social History Current smoker - smoking cessation education provided: No Alcohol: > 2 Drinks/Day Drugs: Denies - Home Medications Home Medications: Ambulatory Orders Medication Instructions Recorded Enalapril Maleate [Vasotec] 10 mg PO BID #60 tab 05/29/17 Pantoprazole [Protonix EC Tab] 20 mg PO DAILY #30 ect 05/29/17 clonazePAM [Klonopin] 1 mg PO BID PRN #10 tab 09/15/17 - Allergies Allergies/Adverse Reactions: Allergies Allergy/AdvReac Type Severity Reaction Status Date / Time No Known Allergies Allergy Verified 07/03/18 15:58 Review of Systems ROS Statement: Except As Marked, All Systems Reviewed And Found Negative Gastrointestinal: Positive for: Nausea, Vomiting, Abdominal Pain Physical Exam - Reviewed Nursing Documentation Reviewed: Yes Vital Signs Reviewed: Yes - Physical Exam Appears: Positive for: Well, Non-toxic, No Acute Distress Head Exam: Positive for: ATRAUMATIC, NORMAL INSPECTION, NORMOCEPHALIC Skin: Positive for: Normal Color, Warm, DRY Eye Exam: Positive for: EOMI, Normal appearance, PERRL ENT: Positive for: Normal ENT Inspection Neck: Positive for: Normal, Painless ROM Cardiovascular/Chest: Positive for: Regular Rate, Rhythm Respiratory: Positive for: CNT, Normal Breath Sounds Gastrointestinal/Abdominal: Positive for: Soft, Tenderness (epigastric abdominal tenderness) Back: Positive for: Normal Inspection Extremity: Positive for: Normal ROM Neurologic/Psych: Positive for: Alert, Oriented - Laboratory Results Result Diagrams: 07/03/18 17:18 07/03/18 17:18 - ECG O2 Sat by Pulse Oximetry: 96 Medical Decision Making Medical Decision Making: IV access established and treatment initiated with IVF, Pepcid and Zofran NA 129, Mag level ordered. IVF running Case endorsed to [facility] Tello at 1999 pending diagnotic review and re-eval Disposition - Clinical Impression Clinical Impression: Abdominal discomfort, Hyponatremia, Alcohol abuse - Patient ED Disposition Is Patient to be Admitted: Transfer of Care - Disposition Disposition: Transfer of Care Disposition Time: 20:36 Condition: STABLE Forms: [employer] (Frisian)
[2018-07-03 17:36] LABS: BASO # 0.1 K/uL (0.0-0.2); BASO % 0.8 % (0.0-2.0); EOS # 0.1 K/uL (0.0-0.7); EOS % 0.8 % (0.0-4.0); HEMOGLOBIN 12.5 g/dL (12.0-16.0); LYMPH # 2.9 K/uL (1.0-4.3); MEAN CELL VOLUME 94.5 fl (81.0-99.0); MEAN CORPUSCULAR HEMOGLOBIN 33.2 pg (27.0-31.0); MEAN CORPUSCULAR HGB CONC 35.2 g/dL (33.0-37.0); MEAN PLATELET VOLUME 8.8 fl (7.2-11.7); MONO # 0.6 K/uL (0.0-0.8); MONO % 8.5 % (0.0-10.0); NEUT # 3.7 K/uL (1.8-7.0); NEUT % 49.9 % (50.0-75.0); NRBC % 0.1 % (0.0-0.0); RBC 3.77 Mil/uL (3.80-5.20); RED CELL DISTRIBUTION WIDTH 12.9 % (11.5-14.5); WHITE BLOOD COUNT 7.4 K/uL (4.8-10.8)
[2018-07-03 17:43] LABS: ALT/SGPT 121 U/L (9-52); AMYLASE 91 U/L (30-110); AST/SGOT 128 U/L (14-36); BLOOD UREA NITROGEN 6 mg/dl (7-17); CALCIUM 9.7 mg/dL (8.4-10.2); GFR NON-AFRICAN AMERICAN > 60; LIPASE 100 U/L (23-300)
--- NOTE | 2018-07-03 18:03 | RAD ---
Date of service: 07/03/2018 PROCEDURE: CHEST RADIOGRAPH, 1 VIEW HISTORY: med screenng COMPARISON: 12/16/2017. FINDINGS: LUNGS: Clear. PLEURA: No pneumothorax or pleural fluid seen. CARDIOVASCULAR: No radiographic findings to suggest acute or significant cardiovascular disease. OSSEOUS STRUCTURES: No significant abnormalities. VISUALIZED UPPER ABDOMEN: Normal. OTHER FINDINGS: None. IMPRESSION: No active disease. No acute/significant interval changes.
[2018-07-03] MEDS ORDERED: Sodium Chloride 0.9% 1,000 ML IV STA (18:25)
[2018-07-03 21:28] VITALS: BP 143/79; PULSE 77; RESP 16
--- NOTE | 2018-07-03 21:43 | ED PDOC ---
- Laboratory Results Result Diagrams: 07/03/18 17:18 07/03/18 21:20 - ECG O2 Sat by Pulse Oximetry: 96 - Progress ED Course And Treament: Case endorsed to rewriter from [facility] pending labs, re-eval 21:30 Patient ambulating about ED, pain improved tolerated PO Patient educated on findings, rx Pepcid, zofran provided Advised follow up PMD 2-3 days Return precautions given Patient requires no further intervention in the ED and is stable for discharge at this time Disposition - Clinical Impression Clinical Impression: Abdominal discomfort, Alcohol abuse - POA Present On Arrival: None - Disposition Disposition: Routine/Home Disposition Time: 21:42 Condition: IMPROVED Prescriptions: Famotidine [Pepcid] 20 mg PO BID #20 tab Ondansetron ODT [Zofran ODT] 4 mg PO Q8 PRN #10 odt PRN Reason: Nausea/Vomiting Instructions: Stomach Ache and Stomach Upset
--- NOTE | 2018-07-04 07:48 | CARD ---
APPROVED REPORT Date of service: 07/03/2018 EKG Measurement Heart [id number] [id number] <Conclusion> Sinus rhythm with marked sinus arrhythmia Nonspecific ST abnormality Abnormal ECG
== END 2018-07-03 22:48 | disposition home or self-care (01) ==
LOC: H.ER 15:54
DX: R10.9 Unspecified abdominal pain (principal); E87.1 Hypo-osmolality and hyponatremia; F10.10 Alcohol abuse, uncomplicated; I10 Essential (primary) hypertension
CPT/HCPCS: 71045; 80053; 80320; 81025; 82150; 83690; 83735; 84295; 84484; 85025; 93005; 96374; 96375; 99284; J2405; J7030

== ENCOUNTER 2018-08-02 03:38 | Emergency (ER) | payer MEDICAID ==
[2018-08-02 03:38] VITALS: BMI 31.7
[2018-08-02 03:42] VITALS: BP 145/99; PULSE 87; RESP 18; TEMP 97.8
--- NOTE | 2018-08-02 03:45 | ED PDOC ---
HPI: General Adult Time Seen by Provider: 08/02/18 03:43 Chief Complaint (Nursing): Anxiety Chief Complaint (Provider): anxiety History Per: Patient Additional Complaint(s): 52 year female presents with anxiety. Patient states she has a couple of drinks this evening as well. She denies any chest pain, SOB or ARCE. Past Medical History Reviewed: Historical Data, Nursing Documentation, Vital Signs Vital Signs: Last Vital Signs Temp 97.8 F 08/02/18 03:39 Pulse 87 08/02/18 03:39 Resp 18 08/02/18 03:39 BP 145/99 H 08/02/18 03:39 Pulse Ox 98 08/02/18 03:39 - Medical History PMH: Anxiety, Depression, GERD, HTN - Family History Family History: States: No Known Family Hx - Living Arrangements Living Arrangements: Alone - Social History Current smoker - smoking cessation education provided: No Alcohol: Social Drugs: Denies - Home Medications Home Medications: Ambulatory Orders Medication Instructions Recorded Enalapril Maleate [Vasotec] 10 mg PO BID #60 tab 05/29/17 Pantoprazole [Protonix EC Tab] 20 mg PO DAILY #30 ect 05/29/17 clonazePAM [Klonopin] 1 mg PO BID PRN #10 tab 09/15/17 Famotidine [Pepcid] 20 mg PO BID #20 tab 07/03/18 Ondansetron ODT [Zofran ODT] 4 mg PO Q8 PRN #10 odt 07/03/18 - Allergies Allergies/Adverse Reactions: Allergies Allergy/AdvReac Type Severity Reaction Status Date / Time No Known Allergies Allergy Verified 08/02/18 03:41 Review of Systems ROS Statement: Except As Marked, All Systems Reviewed And Found Negative Psych: Positive for: Anxiety, Other (etoh) Physical Exam - Reviewed Nursing Documentation Reviewed: Yes Vital Signs Reviewed: Yes - Physical Exam Appears: Positive for: Well, Non-toxic, No Acute Distress Skin: Positive for: Normal Color. Negative for: Rash Eye Exam: Positive for: Normal appearance Cardiovascular/Chest: Positive for: Regular Rate, Rhythm Respiratory: Positive for: Normal Breath Sounds. Negative for: Wheezing, Respiratory Distress Extremity: Positive for: Normal ROM Neurologic/Psych: Positive for: Alert, Oriented - ECG O2 Sat by Pulse Oximetry: 98 Pulse Ox Interpretation: Normal Medical Decision Making Medical Decision Makin52 y/o with anxiety Plan: 1 mg PO klonopin Disposition - Clinical Impression Clinical Impression: Anxiety - Disposition Referrals: [facility] [Outside] Disposition: Routine/Home Disposition Time: 04:09 Condition: STABLE Additional Instructions: Follow up URIEL with your primary care doctor. Instructions: Anxiety, Adult (DC) Forms: [employer] (Anguillan)
[2018-08-02 07:27] VITALS: O2SAT 99
== END 2018-08-02 05:45 | disposition home or self-care (01) ==
LOC: H.ER 03:38
DX: F41.9 Anxiety disorder, unspecified (principal); Z86.59 Personal history of other mental and behavioral disorders; I10 Essential (primary) hypertension

== ENCOUNTER 2018-08-27 11:44 | Emergency (ER) | payer MEDICAID ==
[2018-08-27 11:45] VITALS: BMI 31.7
[2018-08-27 11:58] VITALS: TEMP 98.6
--- NOTE | 2018-08-27 12:47 | ED PDOC ---
HPI: Abdomen Time Seen by Provider: 08/27/18 12:14 Chief Complaint (Nursing): Abdominal Pain Chief Complaint (Provider): Abdominal Pain History Per: Patient History/Exam Limitations: no limitations Onset/Duration Of Symptoms: Days Current Symptoms Are (Timing): Still Present Associated Symptoms: denies: Fever, Vomiting, Diarrhea Additional Complaint(s): Amber Phillips is a 52 year old female, frequent visitor for chronic alcoholism, with a past medical history of hypertension, GERD, depression, and anxiety who is presenting to the ED for evaluation as she states that she thinks her pancreatitis is acting up. Patient states that she has had abdominal pain for the past 5 days but denies any fevers, vomiting, or diarrhea. Of note, patients last drink was an hour ago. PMD: none provided Past Medical History Reviewed: Historical Data, Nursing Documentation, Vital Signs Vital Signs: Last Vital Signs Temp 98.6 F 08/27/18 11:58 Pulse 74 08/27/18 11:58 Resp 20 08/27/18 11:58 BP 146/93 H 08/27/18 11:58 Pulse Ox 95 08/27/18 11:58 - Medical History PMH: Anxiety, Depression, GERD, HTN - Surgical History Other surgeries: right ankle orthopedic surgery - Family History Family History: States: Unknown Family Hx - Social History Current smoker - smoking cessation education provided: Yes Alcohol: > 2 Drinks/Day Drugs: Denies - Home Medications Home Medications: Ambulatory Orders Medication Instructions Recorded Enalapril Maleate [Vasotec] 10 mg PO BID #60 tab 05/29/17 Pantoprazole [Protonix EC Tab] 20 mg PO DAILY #30 ect 05/29/17 clonazePAM [Klonopin] 1 mg PO BID PRN #10 tab 09/15/17 Famotidine [Pepcid] 20 mg PO BID #20 tab 07/03/18 Ondansetron ODT [Zofran ODT] 4 mg PO Q8 PRN #10 odt 07/03/18 - Allergies Allergies/Adverse Reactions: Allergies Allergy/AdvReac Type Severity Reaction Status Date / Time No Known Allergies Allergy Verified 08/02/18 03:41 Review of Systems ROS Statement: Except As Marked, All Systems Reviewed And Found Negative Constitutional: Negative for: Fever Gastrointestinal: Positive for: Abdominal Pain. Negative for: Vomiting, Diarrhea Physical Exam - Reviewed Nursing Documentation Reviewed: Yes Vital Signs Reviewed: Yes - Physical Exam Appears: Positive for: Well, Non-toxic, No Acute Distress Head Exam: Positive for: ATRAUMATIC, NORMAL INSPECTION, NORMOCEPHALIC Skin: Positive for: Normal Color, Warm, DRY Eye Exam: Positive for: EOMI, Normal appearance, PERRL ENT: Positive for: Normal ENT Inspection Neck: Positive for: Normal, Painless ROM Cardiovascular/Chest: Positive for: Regular Rate, Rhythm. Negative for: Murmur Respiratory: Positive for: Normal Breath Sounds. Negative for: Respiratory Distress Gastrointestinal/Abdominal: Positive for: Normal Exam, Soft. Negative for: Tenderness Back: Positive for: Normal Inspection Extremity: Positive for: Normal ROM. Negative for: Deformity, Swelling Neurologic/Psych: Positive for: Alert, Oriented. Negative for: Motor/Sensory Deficits - Laboratory Results Result Diagrams: 08/27/18 12:55 08/27/18 12:55 - ECG O2 Sat by Pulse Oximetry: 95 (RA) Medical Decision Making Medical Decision Making: Time: 12:28 Plan: --CMP --Lipase --CBC 15:00 Patient is pain free and has tolerated PO. Lipase was within normal limits. Alcohol level is at 151. Upon provider evaluation, patient is medically stable for discharge home and requires no further treatment in the ED at this time. ------- Scribe Attestation: Documented by, Stella Dan acting as a scribe for Eitan Alberts MD. Provider Scribe Attestation: All medical record entries made by the Scribe were at my direction and personally dictated by me. I have reviewed the chart and agree that the record accurately reflects my personal performance of the history, physical exam, medical decision making, and the department course for this patient. I have also personally directed, reviewed, and agree with the discharge instructions and dis position. Disposition - Clinical Impression Clinical Impression: Abdominal cramps, Alcohol dependence - Disposition Condition: IMPROVED Additional Instructions: follow up with your doctor in 1-2 days return to the ED with any worsening or concerning symptoms Instructions: Alcohol Use - When Is Drinking a Problem?, Alcohol Abuse and Alcoholism (DC) Forms: [employer] (Japanese)
[2018-08-27 13:12] LABS: BASO % 0.7 % (0.0-2.0); EOS # 0.1 K/uL (0.0-0.7); EOS % 1.2 % (0.0-4.0); HEMOGLOBIN 12.3 g/dL (12.0-16.0); LYMPH % 48.8 % (20.0-40.0); MEAN CELL VOLUME 97.3 fl (81.0-99.0); MEAN CORPUSCULAR HEMOGLOBIN 32.4 pg (27.0-31.0); MEAN CORPUSCULAR HGB CONC 33.3 g/dL (33.0-37.0); MEAN PLATELET VOLUME 8.3 fl (7.2-11.7); MONO # 0.5 K/uL (0.0-0.8); MONO % 7.6 % (0.0-10.0); NEUT # 2.5 K/uL (1.8-7.0); NEUT % 41.7 % (50.0-75.0); NRBC % 0.1 % (0.0-0.0); RBC 3.78 Mil/uL (3.80-5.20); RED CELL DISTRIBUTION WIDTH 13.2 % (11.5-14.5); WHITE BLOOD COUNT 6.1 K/uL (4.8-10.8)
[2018-08-27 13:33] LABS: ALB/GLOB RATIO 1.1 (1.0-2.1); ALBUMIN 4.2 g/dL (3.5-5.0); ALT/SGPT 186 U/L (9-52); AST/SGOT 195 U/L (14-36); BLOOD UREA NITROGEN 10 mg/dl (7-17); GFR NON-AFRICAN AMERICAN > 60; LIPASE 151 U/L (23-300)
[2018-08-27 15:37] VITALS: BP 140/90; PULSE 78; RESP 18
[2018-08-27 19:06] VITALS: O2SAT 95
== END 2018-08-27 15:36 | disposition home or self-care (01) ==
LOC: H.ER 11:44
DX: R10.9 Unspecified abdominal pain (principal); F10.20 Alcohol dependence, uncomplicated; F17.200 Nicotine dependence, unspecified, uncomplicated; F32.9 Major depressive disorder, single episode, unspecified; F41.9 Anxiety disorder, unspecified; I10 Essential (primary) hypertension; K21.9 Gastro-esophageal reflux disease without esophagitis

== ENCOUNTER 2018-08-28 04:04 | Emergency (ER) | payer MEDICAID ==
[2018-08-28 04:05] VITALS: BMI 31.7
[2018-08-28 04:19] VITALS: TEMP 98.8
--- NOTE | 2018-08-28 04:32 | ED PDOC ---
HPI: Psych/Substance Abuse Time Seen by Provider: 08/28/18 04:19 Chief Complaint (Nursing): Anxiety Chief Complaint (Provider): anxiety History Per: Patient History/Exam Limitations: no limitations Additional Complaint(s): 52 y/o female brought in by EMS for evaluation of anxiety. Patient states she ran out of her Klonopin and therefore has been having a hard time controlling her anxiety. Patient denies headache, dizziness, chest pain, shortness of breath, palpitations, suicidal/homicidal ideations. Requesting refill. Past Medical History Reviewed: Historical Data, Nursing Documentation, Vital Signs Vital Signs: Last Vital Signs Temp 98.8 F 08/28/18 04:17 Pulse 88 08/28/18 04:17 Resp 18 08/28/18 04:17 BP 164/110 H 08/28/18 04:17 Pulse Ox 97 08/28/18 04:17 - Medical History PMH: Anxiety, Depression, GERD, HTN - Family History Family History: States: Unknown Family Hx - Home Medications Home Medications: Ambulatory Orders Medication Instructions Recorded Enalapril Maleate [Vasotec] 10 mg PO BID #60 tab 05/29/17 Pantoprazole [Protonix EC Tab] 20 mg PO DAILY #30 ect 05/29/17 clonazePAM [Klonopin] 1 mg PO BID PRN #10 tab 09/15/17 Famotidine [Pepcid] 20 mg PO BID #20 tab 07/03/18 Ondansetron ODT [Zofran ODT] 4 mg PO Q8 PRN #10 odt 07/03/18 - Allergies Allergies/Adverse Reactions: Allergies Allergy/AdvReac Type Severity Reaction Status Date / Time No Known Allergies Allergy Verified 08/02/18 03:41 Review of Systems ROS Statement: Except As Marked, All Systems Reviewed And Found Negative Psych: Positive for: Anxiety Physical Exam - Reviewed Nursing Documentation Reviewed: Yes Vital Signs Reviewed: Yes - Physical Exam Appears: Positive for: Well, Non-toxic, No Acute Distress Head Exam: Positive for: ATRAUMATIC, NORMAL INSPECTION, NORMOCEPHALIC Skin: Positive for: Normal Color Eye Exam: Positive for: Normal appearance ENT: Positive for: Normal ENT Inspection Cardiovascular/Chest: Positive for: Regular Rate, Rhythm Respiratory: Positive for: Normal Breath Sounds Gastrointestinal/Abdominal: Positive for: Normal Exam Back: Positive for: Normal Inspection Extremity: Positive for: Normal ROM Neurologic/Psych: Positive for: Alert, Oriented (x3) - ECG O2 Sat by Pulse Oximetry: 97 - Progress ED Course And Treament: -klonopin 1mg PO Patient requires no further intervention in the ED and is stable for discharge at this time Advised follow up PMD/mental health services Return precautions given Disposition - Clinical Impression Clinical Impression: Anxiety - Patient ED Disposition Is Patient to be Admitted: No Counseled Patient/Family Regarding: Diagnosis, Need For Followup - Disposition [facility]errals[facility] Disposition: Routine/Home Disposition Time: 04:32 Condition: IMPROVED Instructions: Anxiety, Adult (DC)
[2018-08-28 04:54] VITALS: BP 160/99; PULSE 82; RESP 17; O2SAT 99
== END 2018-08-28 04:46 | disposition home or self-care (01) ==
LOC: H.ER 04:04
DX: F41.9 Anxiety disorder, unspecified (principal)

== ENCOUNTER 2018-08-29 05:38 | Emergency (ER) | payer MEDICAID ==
[2018-08-29 05:38] VITALS: BMI 31.7
[2018-08-29 06:03] VITALS: BP 153/98; PULSE 100; RESP 18; TEMP 98.3; O2SAT 98
--- NOTE | 2018-08-29 06:14 | ED PDOC ---
HPI: General Adult Time Seen by Provider: 08/29/18 05:58 Chief Complaint (Nursing): Med Refill Chief Complaint (Provider): Med Refill History Per: Patient History/Exam Limitations: no limitations Additional Complaint(s): 52 years old female presents to ER for med refill. Patient reports she ran out of Klonopin and unable to control anxiety. She was seen here yesterday for the same reason. PMD: non provided Past Medical History Reviewed: Historical Data, Nursing Documentation, Vital Signs Vital Signs: Last Vital Signs Temp 98.3 F 08/29/18 05:59 Pulse 100 H 08/29/18 05:59 Resp 18 08/29/18 05:59 BP 153/98 H 08/29/18 05:59 Pulse Ox 98 08/29/18 05:59 - Medical History PMH: Anxiety, Depression, GERD, HTN - Surgical History Surgical History: No Surg Hx - Family History Family History: States: Unknown Family Hx - Social History Current smoker - smoking cessation education provided: Yes (Light) Alcohol: Social Drugs: Denies - Home Medications Home Medications: Ambulatory Orders Medication Instructions Recorded RX: Enalapril Maleate [Vasotec] 10 mg PO BID #60 tab 05/29/17 RX: Pantoprazole [Protonix EC Tab] 20 mg PO DAILY #30 ect 05/29/17 RX: clonazePAM [Klonopin] 1 mg PO TID 08/30/18 - Allergies Allergies/Adverse Reactions: Allergies Allergy/AdvReac Type Severity Reaction Status Date / Time No Known Allergies Allergy Verified 08/30/18 16:49 Review of Systems ROS Statement: Except As Marked, All Systems Reviewed And Found Negative Psych: Positive for: Anxiety. Negative for: Suicidal ideation (no HI) Physical Exam - Reviewed Nursing Documentation Reviewed: Yes Vital Signs Reviewed: Yes - Physical Exam Appears: Positive for: Non-toxic, No Acute Distress Head Exam: Positive for: ATRAUMATIC, NORMOCEPHALIC Skin: Positive for: Normal Color, Warm, Dry Cardiovascular/Chest: Positive for: Regular Rate, Rhythm. Negative for: Murmur Respiratory: Positive for: Normal Breath Sounds. Negative for: Wheezing Gastrointestinal/Abdominal: Positive for: Normal Exam, Soft. Negative for: Tenderness Back: Positive for: Normal Inspection. Negative for: L CVA Tenderness, R CVA Tenderness Extremity: Positive for: Normal ROM. Negative for: Tenderness, Swelling Neurologic/Psych: Positive for: Alert, Oriented (x3) - ECG O2 Sat by Pulse Oximetry: 98 (RA) Pulse Ox Interpretation: Normal Medical Decision Making Medical Decision Making: Time: 612 Initial Plan: acute on chronic anxiety. --Ativan 0.5 mg PO 621 Upon reevaluation, patient reports improvement of symptoms, stable gait, explained the importance of outpatient follow up for chronic psych issues. pt is stable for discharge. ----- Scribe Attestation: Documented by Rajni Minaya, acting as a scribe for Eitan Alberts MD. Provider Scribe Attestation: All medical record entries made by the Scribe were at my direction and personally dictated by me. I have reviewed the chart and agree that the record accurately reflects my personal performance of the history, physical exam, medical decision making, and the department course for this patient. I have also personally directed, reviewed, and agree with the discharge instructions and disposition. Disposition - Clinical Impression Clinical Impression: Anxiety - Patient ED Disposition Is Patient to be Admitted: No Counseled Patient/Family Regarding: Diagnosis, Need For Followup - Disposition Disposition: Routine/Home Disposition Time: 06:22 Condition: IMPROVED Additional Instructions: follow up with your primary doctor in 1-2 days return to the ED with any worsening or concerning symptoms Instructions: Anxiety, Adult (DC) Forms: [email or web address] (Lebanese)
== END 2018-08-29 06:55 | disposition home or self-care (01) ==
LOC: H.ER 05:38
DX: F41.9 Anxiety disorder, unspecified (principal); Z86.59 Personal history of other mental and behavioral disorders; F17.200 Nicotine dependence, unspecified, uncomplicated; I10 Essential (primary) hypertension; Z76.0 Encounter for issue of repeat prescription; Z79.899 Other long term (current) drug therapy; Z00.8 Encounter for other general examination

== ENCOUNTER 2018-08-30 05:18 | Emergency (ER) | payer MEDICAID ==
[2018-08-30 05:18] VITALS: BMI 31.7
[2018-08-30 05:28] VITALS: BP 174/115; PULSE 97; RESP 16; TEMP 97.7; O2SAT 98
--- NOTE | 2018-08-30 05:54 | ED PDOC ---
HPI: Psych/Substance Abuse Time Seen by Provider: 08/30/18 05:45 Chief Complaint (Nursing): Anxiety Chief Complaint (Provider): Anxiety History Per: Patient History/Exam Limitations: no limitations Onset/Duration Of Symptoms: Persistent Current Symptoms Are (Timing): Still Present Suicide/Self Injury Attempted (Context): None Additional Complaint(s): 52 year old female, well-known to ED for multiple visits, arrives for an evaluation of persistent anxiety. Patient is requesting anxiety medication as she cannot fill her prescription at the moment. She denies any suicidal or homicidal ideation. PCP: none provided Past Medical History Reviewed: Historical Data, Nursing Documentation, Vital Signs Vital Signs: Last Vital Signs Temp 97.7 F 08/30/18 05:24 Pulse 97 H 08/30/18 05:24 Resp 16 08/30/18 05:24 BP 174/115 H 08/30/18 05:24 Pulse Ox 98 08/30/18 05:24 - Medical History PMH: Anxiety, Depression, GERD, HTN - Family History Family History: States: Unknown Family Hx - Home Medications Home Medications: Ambulatory Orders Medication Instructions Recorded Enalapril Maleate [Vasotec] 10 mg PO BID #60 tab 05/29/17 Pantoprazole [Protonix EC Tab] 20 mg PO DAILY #30 ect 05/29/17 clonazePAM [Klonopin] 1 mg PO BID PRN #10 tab 09/15/17 Famotidine [Pepcid] 20 mg PO BID #20 tab 07/03/18 Ondansetron ODT [Zofran ODT] 4 mg PO Q8 PRN #10 odt 07/03/18 - Allergies Allergies/Adverse Reactions: Allergies Allergy/AdvReac Type Severity Reaction Status Date / Time No Known Allergies Allergy Verified 08/29/18 05:58 Review of Systems ROS Statement: Except As Marked, All Systems Reviewed And Found Negative Psych: Positive for: Anxiety. Negative for: Suicidal ideation (or homicidal ideation) Physical Exam - Reviewed Nursing Documentation Reviewed: Yes Vital Signs Reviewed: Yes - Physical Exam Appears: Positive for: Well, Non-toxic, No Acute Distress Head Exam: Positive for: ATRAUMATIC, NORMAL INSPECTION, NORMOCEPHALIC Skin: Positive for: Normal Color Eye Exam: Positive for: Normal appearance ENT: Positive for: Normal ENT Inspection Neck: Positive for: Normal Cardiovascular/Chest: Positive for: Regular Rate, Rhythm Respiratory: Positive for: Normal Breath Sounds. Negative for: Respiratory Distress Gastrointestinal/Abdominal: Positive for: Normal Exam, Soft Extremity: Positive for: Normal ROM (upper/lower) Neurologic/Psych: Positive for: Alert (x3), Oriented (x3). Negative for: Motor/Sensory Deficits - ECG O2 Sat by Pulse Oximetry: 98 (RA) Pulse Ox Interpretation: Normal Medical Decision Making Medical Decision Making: Initial Impression: 52 year old female with anxiety Initial Plan: * Klonopin 1mg PO Time: 0545 Upon provider reevaluation, patient is feeling better, medically stable, and requires no further treatment in the ED at this time. Patient will be discharged home. Counseling was provided and all questions were answered regarding diagnosis. There is agreement to discharge plan. Return if symptoms persist or worsen. Clinical Impression: Anxiety Scribe Attestation: Documented by Desiree Olivo, acting as a scribe for Greyson Avila MD. Provider Scribe Attestation: All medical record entries made by the Scribe were at my direction and personally dictated by me. I have reviewed the chart and agree that the record accurately reflects my personal performance of the history, physical exam, medical decision making, and the department course for this patient. I have also personally directed, reviewed, and agree with the discharge instructions and disposition. Disposition - Clinical Impression Clinical Impression: Anxiety - Patient ED Disposition Is Patient to be Admitted: No Counseled Patient/Family Regarding: Diagnosis - Disposition Disposition: Routine/Home Disposition Time: 05:45 Condition: STABLE Instructions: Anxiety, Adult (DC) Forms: [employer] (Armenian)
== END 2018-08-30 06:00 | disposition home or self-care (01) ==
LOC: H.ER 05:18
DX: F41.9 Anxiety disorder, unspecified (principal); Z86.59 Personal history of other mental and behavioral disorders; I10 Essential (primary) hypertension

== ENCOUNTER 2018-08-30 16:41 | Inpatient (IN) | payer MEDICAID ==
[2018-08-30 16:42] VITALS: BMI 31.7
[2018-08-30 16:51] VITALS: O2SAT 98
[2018-08-30] MEDS ORDERED: Alum-Mag Hydrox-Simethicone Susp (30 mL) PO ONE (17:05)
--- NOTE | 2018-08-30 17:17 | ED PDOC ---
HPI: Psych/Substance Abuse Time Seen by Provider: 08/30/18 16:48 Chief Complaint (Nursing): Alcohol Ingestion Chief Complaint (Provider): alcohol ingestion History Per: Patient History/Exam Limitations: no limitations Onset/Duration Of Symptoms: Hrs (today) Current Symptoms Are (Timing): Still Present Associated Symptoms: Anxiety Additional Complaint(s): Amber Phillips is a 52 year old female, with a past medical history gastritis, who presents to the emergency department via EMS complaining of feeling very anxious and like she has a stalker in her home. Patient is a frequent ED visitor and is requesting admission. She admits drinking alcohol today due to anxiety. Patient states she has been requesting detox at [facility] but no beds are available. Patient also notes an epigastric burning sensation and is requesting medications. No further medical complaints. PMD: None provided. Past Medical History Reviewed: Historical Data, Nursing Documentation, Vital Signs Vital Signs: Last Vital Signs Temp 98.7 F 08/30/18 16:50 Pulse 88 08/30/18 16:50 Resp 18 08/30/18 16:50 BP 162/108 H 08/30/18 16:50 Pulse Ox 98 08/30/18 16:50 - Medical History PMH: Anxiety, Depression, Gastritis, GERD, HTN - Surgical History Surgical History: No Surg Hx - Family History Family History: States: Unknown Family Hx - Home Medications Home Medications: Ambulatory Orders Medication Instructions Recorded Enalapril Maleate [Vasotec] 10 mg PO BID #60 tab 05/29/17 Pantoprazole [Protonix EC Tab] 20 mg PO DAILY #30 ect 05/29/17 clonazePAM [Klonopin] 1 mg PO TID 08/30/18 - Allergies Allergies/Adverse Reactions: Allergies Allergy/AdvReac Type Severity Reaction Status Date / Time No Known Allergies Allergy Verified 08/30/18 16:49 Review of Systems ROS Statement: Except As Marked, All Systems Reviewed And Found Negative Psych: Positive for: Anxiety Physical Exam - Reviewed Nursing Documentation Reviewed: Yes Vital Signs Reviewed: Yes - Physical Exam Appears: Positive for: No Acute Distress Head Exam: Positive for: ATRAUMATIC, NORMAL INSPECTION, NORMOCEPHALIC Skin: Positive for: Normal Color, Warm, Dry Eye Exam: Positive for: Normal appearance, EOMI, PERRL Neck: Positive for: Normal, Painless ROM Cardiovascular/Chest: Positive for: Regular Rate, Rhythm. Negative for: Murmur Respiratory: Positive for: Normal Breath Sounds. Negative for: Respiratory Distress Gastrointestinal/Abdominal: Positive for: Tenderness (minimal epigastric) Back: Positive for: Normal Inspection. Negative for: L CVA Tenderness, R CVA Tenderness, Vertebral Tenderness Extremity: Positive for: Normal ROM (upper and lower extremities). Negative for: Deformity, Swelling Neurologic/Psych: Positive for: Alert, Other (slurred speech and alcohol on breath) - Laboratory Results Result Diagrams: 08/30/18 17:33 08/30/18 17:33 - ECG O2 Sat by Pulse Oximetry: 98 (RA) Pulse Ox Interpretation: Normal - Progress ED Course And Treament: EKG: NSR NO ECTOPY; T WAVE INV V1-V2 PEPCID 20 MG IV X 1 DOSE MAALOX 30 ML PO X 1 DOSE SODIUM NOTED 127;; PREVIOUS NA 129/128 NOTED 06/2018 NS 1 LITER X 1 DOSE GIVEN. LIBRIUM 50 MG X 1 DOSE D/W CRISIS ADMITTED TO DR. 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 Thao. Scribe Attestation: Documented by Julian Uriarte, acting as a scribe for Nirmala Weathers PA-C Provider Scribe Attestation: All medical record entries made by the Scribe were at my direction and personally dictated by me. I have reviewed the chart and agree that the record accurately reflects my personal performance of the history, physical exam, medical decision making, and the department course for this patient. I have also personally directed, reviewed, and agree with the discharge instructions and disposition. Disposition - Clinical Impression Clinical Impression: Alcohol dependence - Patient ED Disposition Is Patient to be Admitted: Yes - Disposition Disposition Time: 21:41 Condition: FAIR - Pt Status Changed To: Hospital Disposition Of: Inpatient - Admit Certification Admit to Inpatient:: After my assessment, the patient will require hospitalization for at least two midnights. This is because of the severity of symptoms shown, intensity of services needed, and/or the medical risk in this patient being treated as an outpatient.
[2018-08-30 17:39] LABS: BASO # 0.1 K/uL (0.0-0.2); BASO % 0.9 % (0.0-2.0); EOS # 0.2 K/uL (0.0-0.7); EOS % 1.8 % (0.0-4.0); HEMOGLOBIN 12.9 g/dL (12.0-16.0); LYMPH # 4.3 K/uL (1.0-4.3); LYMPH % 49.4 % (20.0-40.0); MEAN CORPUSCULAR HEMOGLOBIN 32.9 pg (27.0-31.0); MEAN CORPUSCULAR HGB CONC 34.6 g/dL (33.0-37.0); MEAN PLATELET VOLUME 8.5 fl (7.2-11.7); MONO # 0.7 K/uL (0.0-0.8); MONO % 8.2 % (0.0-10.0); NEUT # 3.5 K/uL (1.8-7.0); NEUT % 39.7 % (50.0-75.0); RBC 3.91 Mil/uL (3.80-5.20); RED CELL DISTRIBUTION WIDTH 13.2 % (11.5-14.5); WHITE BLOOD COUNT 8.8 K/uL (4.8-10.8)
[2018-08-30 17:47] LABS: MEAN CELL VOLUME 95.1 fl (81.0-99.0)
[2018-08-30] MEDS ORDERED: Alum-Mag Hydrox-Simethicone Susp (30 mL) ONE (17:55)
[2018-08-30 18:01] LABS: ALB/GLOB RATIO 1.1 (1.0-2.1); ALBUMIN 4.5 g/dL (3.5-5.0); ALT/SGPT 159 U/L (9-52); AST/SGOT 146 U/L (14-36); BLOOD UREA NITROGEN 7 mg/dl (7-17); CALCIUM 9.2 mg/dL (8.4-10.2); GFR NON-AFRICAN AMERICAN > 60; LIPASE 104 U/L (23-300)
[2018-08-30 20:06] LABS: SQUAMOUS EPITHIAL < 1 /hpf (0-5); URINE BILIRUBIN NEGATIVE (NEGATIVE); URINE BLOOD NEGATIVE (NEGATIVE); URINE CLARITY CLEAR (Clear); URINE COLOR YELLOW (YELLOW); URINE GLUCOSE (UA) NEG (Normal); URINE LEUKOCYTE ESTERASE NEG Leu/uL (Negative); URINE PROTEIN NEGATIVE (NEGATIVE); URINE UROBILINOGEN 0.2-1.0 mg/dL (0.2-1.0)
[2018-08-30 20:12] LABS: BARBITURATES, UR NEGATIVE (NEGATIVE); BENZODIAZEPINES, UR NEGATIVE (NEGATIVE); OPIATES, UR NEGATIVE (NEGATIVE); PHENCYCLIDINE, UR NEGATIVE (NEGATIVE)
[2018-08-30] MEDS ORDERED: Sodium Chloride 0.9% 1,000 ML IV STA (21:37)
--- NOTE | 2018-08-30 22:28 | CARD ---
APPROVED REPORT Date of service: 08/30/2018 EKG Measurement Heart [id number] <Conclusion> Normal sinus rhythm Nonspecific T wave changes Abnormal ECG
[2018-08-30] MEDS ORDERED: Magnesium Hydroxide Susp 30 ml UD PO PRN (23:08)
[2018-08-30] MEDS ORDERED: DiphenhydrAMINE 50 mg/ml Inj IM PRN (23:08)
--- NOTE | 2018-08-31 01:05 | PCM.BM ---
<Madelaine Plata - Last Filed: 08/31/18 01:05> Treatment Plan Problems - Problems identified on initial assessmt HOPELESSNESS/HELPLESSNESS Date Initiated: 08/30/18 Time Initiated: 23:15 Assessment reference: NA Status: Active ALTERED SLEEP PATTERNS Date Initiated: 08/30/18 Time Initiated: 23:15 Assessment reference: NA Status: Active Treatment assets and liabiliti Patient Assests: adapts well, cooperative, ADL independent Patient Liabilities: poor support system, relationship conflicts - Diagnosis (1) Alcohol use Status: Acute - Milieu Protocol Maintain good personal hygiene: daily Encourage regular showers, every shift Remind patient to perform daily oral care, every shift Assist patient to perform ADL's Maintain personal safety: every shift Educate patient to report safety concerns to staff, every shift Monitor environment for contraband/sharps Medication safety: Monitor for expected outcome, potential side effects: every shift, Assess barriers to learning: every shift, Assess readiness for medication education: every shift Family Contact Family involvement: Famliy/SO not involved Discharge/Continuing Care - Education Needs Education Needs: Patient Medication, Patient Diagnosis/Disease Process, Patient Coping Skills, Patient Anger Management skills, Patient Placement options, Patient Community resources, Patient Activities of Daily Living, Patient Pain, Patient Nutrition, Patient Uses of Medical Equipment, Patient Health Practices/Safety, Patient Personal Hygiene/Grooming, Patient Aftercare Safety Plan, Patient Other - Discharge Discharge Criteria: Free of Homicidal thoughts Discharge to:: Other <Corinna Cagle - Last Filed: 09/01/18 15:51> Treatment Plan Problems - Problems identified on initial assessmt HOPELESSNESS/HELPLESSNESS Date Initiated: 08/30/18 Time Initiated: 23:15 Assessment reference: NA Status: Active ALTERED SLEEP PATTERNS Date Initiated: 08/30/18 Time Initiated: 23:15 Assessment reference: NA Status: Active Substance Abuse Date Initiated: 09/01/18 Time Initiated: 11:56 Assessment reference: NA Status: Active Treatment assets and liabiliti Patient Assests: adapts well, cooperative, resourceful, negotiates basic needs Patient Liabilities: live alone (Pt. reports residing with a "platonic friend" and not wanting to return upon discharge. Pt. reports "we holler and yell a lot" but denies physical violence in the home.), poor support system (Pt. denies family/social supports.), substance abuse (Pt. appears to be minimizing substance abuse. ) Family Contact Family involvement: Famliy/SO not involved Family contact: Patient declines to allow family contact at present - Goals for Treatment Patient goals for treatment: Patient to continue stabilization on 3NP through medication management and group/supportive therapy to address sxs of depression, improve thought process, and eliminate paranoia. Patient to be encouraged to attend groups regularly to promote self-awareness, sobriety, and improve insight, compliance, coping skills and self-esteem. Patient to be provided with referral for appropriate level of aftercare to reduce risk of future hospitalizations and ensure safety in the community. Pt. identified feeling self-reliant and like myself as tx goal. Discharge/Continuing Care - Education Needs Education Needs: Patient Medication, Patient Diagnosis/Disease Process, Patient Coping Skills, Patient Anger Management skills, Patient Placement options, Patient Community resources, Patient Aftercare Safety Plan - Discharge Discharge Criteria: Tolerates medication w/o severe side effects, Free of Suicidal thoughts, Free of paranoid thoughts, Free of agitation, Normal sleep pattern, No longer exhibiting s/s of withdrawal, Other (organization of thoughts) Discharge to:: Other (Inpatient Rehab vs. [facility]) - Treatment Team Participation Patient/Family/SO Statement: 09/01/18 15:56 Patient attended tx team this morning to discuss progress on 3NP and tx goals. Pt. reported continued sxs of depression and anxiety. Pt. presented as disorganized and tangential. Pt. continued to report paranoid delusions regarding a man from her past is following her through the vents. Emotional support and reality testing provided. Pt. minimally receptive to feedback, stating Im not seeing things. He is watching me. Pt. presented with slowing of psychomotor functions. Speech: slow and pressured. Insight/Coping skills/Judg ment impaired. Psychoeducation regarding effects of ongoing alcohol abuse on pts mental health/memory. Pt. minimizing substance abuse and ambivalent towards recommendations for rehab referrals. Pt. identified feeling self-reliant and like myself as tx goal. Discussed with Family/SO: No Was Patient/Family/SO present at Treatment Team Meeting: Yes <Minnie Thao - Last Filed: 09/02/18 13:41> - Diagnosis (1) Alcohol dependence Status: Acute Interventions: motivational therapy 09/02/18 13:41
[2018-08-31] MEDS: Multivitamin With Minerals Tab PO SCH (09:02)
[2018-08-31 09:16] LABS: BLOOD UREA NITROGEN 9 mg/dl (7-17); CALCIUM 9.4 mg/dL (8.4-10.2); GFR NON-AFRICAN AMERICAN > 60; HDL CHOLESTEROL 55 MG/DL (30-70)
[2018-08-31 09:24] LABS: LDL CHOLESTEROL 83 mg/dL (0-129)
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
[2018-09-01] MEDS: Multivitamin With Minerals Tab PO SCH (08:40)
[2018-09-01] MEDS: Pantoprazole 20 mg EC Tab PO SCH (08:40)
[2018-09-01] MEDS: Alum-Mag Hydrox-Simethicone Susp (30 mL) PO PRN ×2 (10:28→17:32)
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
--- NOTE | 2018-09-01 14:57 | PCM.PYCHPN ---
Psychiatric Progress Note - Psychiatric Progress Note Patient seen today, length of contact: pt evaluated discussed with team chart reviewed Patient Chief Complaint: I am used to benzos Problems Identified/Issues Discussed: pt evaluated with treatment team, continues to have delusions about being stalked and hallucinations, believing that the same person is hammering the ceiling over her head, requesting more benzodiazepines, motivational therapy provided discussed with pt the negative effect of alcohol and benzos on her current mental and physical status , discussed starting neuontin and increasing dose of abilify, encouraged pt to attend groups, pt denied any current thoughts of self harm Medical Problems: multiple hospitalizations, hx of non compliance DSM 5 Symptoms Update: alcohol induced psychosis alcohol induced depression alcohol abuse Medication Change: Yes (down taper librium) Medical Record Reviewed: Yes Mental Status Examination - Cognitive Function Orientation: Person, Place, Situation Attention: WNL Concentration: WNL Association: WNL Fund of Knowledge: Poor Decription of patient's judgement and insights: poor insight and judgment - Mood Mood: Depressed, Anxious - Affect Affect: Constricted, Depressed - Speech Speech: Appropriate - Formal Thought Process Formal Thought Process: Hallucinations, Delusions, Paranoia - Suicidal Ideation Suicidal Ideation: No - Homicidal Ideation Homicidal Ideation: No Goal/Treatment Plan - Goal/Treatment Plan Need for Continued Stay: Severe depression anxiety, Discharge may exacerbated symptoms Progress Toward Problem(s) and Goals/Treatment Plan: down taper librium protocol and monitor pt for symptoms and signs of alcohol withdrawal abilify 10 mg increase gradually Motivational group and supportive therapy
[2018-09-02] MEDS: Pantoprazole 20 mg EC Tab PO SCH (09:04)
[2018-09-02] MEDS: Multivitamin With Minerals Tab PO SCH (09:05)
--- NOTE | 2018-09-02 13:49 | PCM.PYCHPN ---
Psychiatric Progress Note - Psychiatric Progress Note Patient seen today, length of contact: pt evaluated discussed with team chart reviewed Patient Chief Complaint: I get very anxious Problems Identified/Issues Discussed: pt evaluated , seen in bed, low energy , poor motivation, depressed mood and affect, continues to have persistent delusions about a person stalking her limited insight into illness requesting more benzos, discussed increasing neurontin for anxiety also discussed increasing abilify, no reported side effects of medications pt denied any current thoughts of self harm, denied command hallucinations Medical Problems: multiple hospitalizations, hx of non compliance DSM 5 Symptoms Update: alcohol induced psychosis alcohol abuse delusional disorder Medication Change: Yes (down taper librium) Medical Record Reviewed: Yes Mental Status Examination - Cognitive Function Orientation: Person, Place, Situation Attention: WNL Concentration: WNL Association: WNL Fund of Knowledge: Poor Decription of patient's judgement and insights: poor insight and judgment - Mood Mood: Depressed, Anxious - Affect Affect: Constricted, Depressed - Speech Speech: Appropriate - Formal Thought Process Formal Thought Process: Hallucinations, Delusions, Paranoia - Suicidal Ideation Suicidal Ideation: No - Homicidal Ideation Homicidal Ideation: No Goal/Treatment Plan - Goal/Treatment Plan Need for Continued Stay: Severe depression anxiety, Discharge may exacerbated symptoms Progress Toward Problem(s) and Goals/Treatment Plan: down taper librium protocol and monitor pt for symptoms and signs of alcohol withdrawal abilify 10 mg increase gradually increase neurontin for anxiety Motivational group and supportive therapy
[2018-09-03] MEDS: Multivitamin With Minerals Tab PO SCH (08:34)
[2018-09-03] MEDS: Pantoprazole 20 mg EC Tab PO SCH (08:34)
--- NOTE | 2018-09-03 14:21 | PCM.PYCHPN ---
Psychiatric Progress Note - Psychiatric Progress Note Patient seen today, length of contact: pt evaluated discussed with team chart reviewed Patient Chief Complaint: I am tired Problems Identified/Issues Discussed: pt evaluated , seen in bed,continues to present with depressed mood and affect, low motivation, delusional thought process, motivational therapy provided , encouraged pt to attend groups, discussed referral to rehab on discharge pt denied any current thoughts of self harm, denied command hallucinations Medical Problems: multiple hospitalizations, hx of non compliance DSM 5 Symptoms Update: alcohol induced mood disorder delusional disorder alcohol abuse Medication Change: Yes (down taper librium) Medical Record Reviewed: Yes Mental Status Examination - Cognitive Function Orientation: Person, Place, Situation Attention: WNL Concentration: WNL Association: WNL Fund of Knowledge: Poor Decription of patient's judgement and insights: poor insight and judgment - Mood Mood: Depressed, Anxious - Affect Affect: Constricted, Depressed - Speech Speech: Appropriate - Formal Thought Process Formal Thought Process: Hallucinations, Delusions, Paranoia - Suicidal Ideation Suicidal Ideation: No - Homicidal Ideation Homicidal Ideation: No Goal/Treatment Plan - Goal/Treatment Plan Need for Continued Stay: Severe depression anxiety, Discharge may exacerbated symptoms Progress Toward Problem(s) and Goals/Treatment Plan: down taper librium protocol and monitor pt for symptoms and signs of alcohol withdrawal abilify 10 mg increase gradually neurontin 300 mg tid Motivational group and supportive therapy
[2018-09-04] MEDS: Pantoprazole 20 mg EC Tab PO SCH (08:48)
[2018-09-04] MEDS: Multivitamin With Minerals Tab PO SCH (08:48)
--- NOTE | 2018-09-04 10:48 | PCM.PYCHPN ---
Psychiatric Progress Note - Psychiatric Progress Note Patient seen today, length of contact: pt evaluated discussed with team chart reviewed Patient Chief Complaint: I feel tired Problems Identified/Issues Discussed: pt evaluated , seen in bed,continues to present with depressed mood and affect, low motivation, delusional thought process, continues to request benzodiazepines motivational therapy provided , encouraged pt to attend groups, discussed referral to rehab on discharge pt denied any current thoughts of self harm, denied command hallucinations Medical Problems: multiple hospitalizations, hx of non compliance Medication Change: Yes (discontinue librium) Medical Record Reviewed: Yes Mental Status Examination - Cognitive Function Orientation: Person, Place, Situation Attention: WNL Concentration: WNL Association: WNL Fund of Knowledge: Poor Decription of patient's judgement and insights: poor insight and judgment - Mood Mood: Depressed, Anxious - Affect Affect: Constricted, Depressed - Speech Speech: Appropriate - Formal Thought Process Formal Thought Process: Hallucinations, Delusions, Paranoia - Suicidal Ideation Suicidal Ideation: No - Homicidal Ideation Homicidal Ideation: No Goal/Treatment Plan - Goal/Treatment Plan Need for Continued Stay: Severe depression anxiety, Discharge may exacerbated symptoms Progress Toward Problem(s) and Goals/Treatment Plan: discontinue librium, vistaril prn for anxiety abilify 10 mg increase gradually neurontin 300 mg tid Motivational group and supportive therapy
[2018-09-04 17:47] VITALS: RESP 18
[2018-09-05] MEDS: Alum-Mag Hydrox-Simethicone Susp (30 mL) PO PRN (05:52)
[2018-09-05] MEDS: Multivitamin With Minerals Tab PO SCH (09:13)
[2018-09-05] MEDS: Pantoprazole 20 mg EC Tab PO SCH (09:14)
--- NOTE | 2018-09-05 13:15 | PCM.PYCHPN ---
Psychiatric Progress Note - Psychiatric Progress Note Patient seen today, length of contact: pt evaluated discussed with team chart reviewed Patient Chief Complaint: I feel better Problems Identified/Issues Discussed: pt evaluated , seen in day room, reported better mood, feeling less anxious, brighter affect, pt agreed to join outpatient rehab at [facility] no reported side effects of medications pt denied any current thoughts of self harm, denied command hallucinations Medical Problems: multiple hospitalizations, hx of non compliance DSM 5 Symptoms Update: delusional disorder alcohol induced mood disorder Medication Change: No Medical Record Reviewed: Yes Mental Status Examination - Cognitive Function Orientation: Person, Place, Situation Attention: WNL Concentration: WNL Association: WNL Fund of Knowledge: Poor Decription of patient's judgement and insights: poor insight and judgment - Mood Mood: Anxious - Affect Affect: Constricted, Depressed - Speech Speech: Appropriate - Formal Thought Process Formal Thought Process: Circumstantial Psychotic Thoughts and Behaviors: pt reported clearing off of the paranoid delusions - Suicidal Ideation Suicidal Ideation: No - Homicidal Ideation Homicidal Ideation: No Goal/Treatment Plan - Goal/Treatment Plan Need for Continued Stay: Severe depression anxiety, Discharge may exacerbated symptoms Progress Toward Problem(s) and Goals/Treatment Plan: vistaril prn for anxiety abilify 10 mg increase gradually neurontin 300 mg tid trazodone 100mg qhs Motivational group and supportive therapy
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
[2018-09-06] MEDS: Multivitamin With Minerals Tab PO SCH (08:34)
[2018-09-06] MEDS: Pantoprazole 20 mg EC Tab PO SCH (08:34)
[2018-09-06 09:07] VITALS: BP 124/76; PULSE 65; TEMP 98.1
== END 2018-09-06 09:34 | disposition home or self-care (01) | DRG 750 ==
LOC: H.ER 16:41 → H.ERHOLD 20:55 → H.PSYCH 22:57
PROVIDERS: ADMIT Psychiatry & Neurology Psychiatry; ATTEND Psychiatry & Neurology Psychiatry
PROC: GZ58ZZZ Individual Psychotherapy, Cognitive-Behavioral (ICD-10-PCS; principal; 2018-08-30)
DX: F10.24 Alcohol dependence with alcohol-induced mood disorder (principal); F32.3 Major depressive disorder, single episode, severe with psychotic features; F10.259 Alcohol dependence with alcohol-induced psychotic disorder, unspecified; F43.10 Post-traumatic stress disorder, unspecified; I10 Essential (primary) hypertension; K21.9 Gastro-esophageal reflux disease without esophagitis; R45.851 Suicidal ideations; Z79.899 Other long term (current) drug therapy; Z82.49 Family history of ischemic heart disease and other diseases of the circulatory system; F17.210 Nicotine dependence, cigarettes, uncomplicated; Z91.19 Patient's noncompliance with other medical treatment and regimen; Z91.5 Personal history of self-harm; K29.70 Gastritis, unspecified, without bleeding; R74.0 Nonspecific elevation of levels of transaminase and lactic acid dehydrogenase [LDH]; Y90.6 Blood alcohol level of 120-199 mg/100 ml

== ENCOUNTER 2018-09-07 14:32 | Emergency (ER) | payer MEDICAID ==
[2018-09-07 14:33] VITALS: BMI 31.7
[2018-09-07 14:55] VITALS: TEMP 98.4
[2018-09-07] MEDS ORDERED: Sodium Chloride 0.9% 1,000 ML IV STA (15:14)
--- NOTE | 2018-09-07 15:17 | ED PDOC ---
HPI: Abdomen Time Seen by Provider: 09/07/18 15:00 Chief Complaint (Nursing): Alcohol Ingestion Chief Complaint (Provider): abdominal pain History Per: Patient History/Exam Limitations: no limitations Onset/Duration Of Symptoms: Days (x2) Location Of Pain/Discomfort: Epigastric Additional Complaint(s): Amber Phillips is a 52 year old female, with a past medical history of alcohol abuse, who presents to the emergency department complaining of epigastric pain onset for x2 days. Patient admits to alcohol consumption. She denies any fever, chills or other medical complaints. PMD: None provided. Past Medical History Reviewed: Historical Data, Nursing Documentation, Vital Signs Vital Signs: Last Vital Signs Temp 98.4 F 09/07/18 14:51 Pulse 78 09/07/18 14:51 Resp 18 09/07/18 14:51 BP 138/78 09/07/18 14:51 Pulse Ox 99 09/07/18 14:51 - Medical History PMH: Anxiety, Depression, Gastritis, GERD, HTN Denies: Diabetes, Hepatitis, HIV, Chronic Kidney Disease, Seizures, Sexually Transmitted Disease - Surgical History Surgical History: No Surg Hx - Family History Family History: States: Unknown Family Hx - Social History Current smoker - smoking cessation education provided: Yes (Light smoker <10 cigarettes daily) Alcohol: Other Drugs: Denies - Home Medications Home Medications: Ambulatory Orders Medication Instructions Recorded RX: Enalapril Maleate [Vasotec] 10 mg PO BID #60 tab 05/29/17 RX: Pantoprazole [Protonix EC Tab] 20 mg PO DAILY #30 ect 05/29/17 RX: ARIPiprazole [Abilify] 10 mg PO DAILY 30 Days #30 tab 09/05/18 RX: Gabapentin [Neurontin] 300 mg PO TID 30 Days #90 cap 09/05/18 RX: traZODone [Desyrel] 100 mg PO HS PRN 30 Days #30 tab 09/05/18 RX: Folic Acid 1 mg PO DAILY tab 09/06/18 RX: Thiamine [Vitamin B1 Tab] 100 mg PO DAILY tab 09/06/18 - Allergies Allergies/Adverse Reactions: Allergies Allergy/AdvReac Type Severity Reaction Status Date / Time No Known Allergies Allergy Verified 08/30/18 16:49 Review of Systems ROS Statement: Except As Marked, All Systems Reviewed And Found Negative Constitutional: Negative for: Fever, Chills Gastrointestinal: Positive for: Abdominal Pain Physical Exam - Reviewed Nursing Documentation Reviewed: Yes Vital Signs Reviewed: Yes - Physical Exam Appears: Positive for: No Acute Distress Head Exam: Positive for: ATRAUMATIC, NORMAL INSPECTION, NORMOCEPHALIC Skin: Positive for: Normal Color, Warm, Dry Eye Exam: Positive for: Normal appearance, EOMI, PERRL Neck: Positive for: Normal, Painless ROM Cardiovascular/Chest: Positive for: Regular Rate, Rhythm. Negative for: Murmur Respiratory: Positive for: Normal Breath Sounds. Negative for: Respiratory Distress Gastrointestinal/Abdominal: Positive for: Tenderness (epigastric) Back: Positive for: Normal Inspection. Negative for: L CVA Tenderness, R CVA Tenderness, Vertebral Tenderness Extremity: Positive for: Normal ROM (upper and lower extremities). Negative for: Deformity, Swelling Neurologic/Psych: Positive for: Alert, Oriented - Laboratory Results Result Diagrams: 09/07/18 15:49 09/07/18 15:49 - ECG O2 Sat by Pulse Oximetry: 99 (RA) Pulse Ox Interpretation: Normal Medical Decision Making Medical Decision Making: Time: 15:00 Initial Plan: --Alcohol serum --CMP --Lipase --CBC w/ differential --Sodium Chloride 1,000 ml IV 100 mls/hr --Pepcid 20 mg IVP --Reevaluation ----- Scribe Attestation: Documented by Julian Uriarte, acting as a scribe for Abdi Kelsey MD. Provider Scribe Attestation: All medical record entries made by the Scribe were at my direction and personally dictated by me. I have reviewed the chart and agree that the record accurately reflects my personal performance of the history, physical exam, medical decision making, and the department course for this patient. I have also personally directed, reviewed, and agree with the discharge instructions and disposition. Disposition - Clinical Impression Clinical Impression: Alcohol abuse - Patient ED Disposition Is Patient to be Admitted: Transfer of Care - Disposition Referrals: [facility] [Outside] - 09/09/18 Disposition: Transfer of Care Disposition Time: 17:00 Condition: STABLE Additional Instructions: Return if not better in 3 days. Instructions: Alcohol Abuse and Alcoholism (DC) Patient Signed Over To: Bhupinder Muniz
[2018-09-07 15:59] LABS: BASO # 0.1 K/uL (0.0-0.2); BASO % 0.7 % (0.0-2.0); EOS # 0.1 K/uL (0.0-0.7); HEMOGLOBIN 12.8 g/dL (12.0-16.0); LYMPH # 3.1 K/uL (1.0-4.3); MEAN CELL VOLUME 95.4 fl (81.0-99.0); MEAN CORPUSCULAR HEMOGLOBIN 32.8 pg (27.0-31.0); MEAN CORPUSCULAR HGB CONC 34.4 g/dL (33.0-37.0); MEAN PLATELET VOLUME 8.6 fl (7.2-11.7); MONO # 0.7 K/uL (0.0-0.8); MONO % 7.2 % (0.0-10.0); NEUT # 6.3 K/uL (1.8-7.0); NEUT % 61.1 % (50.0-75.0); RBC 3.91 Mil/uL (3.80-5.20); RED CELL DISTRIBUTION WIDTH 13.3 % (11.5-14.5); WHITE BLOOD COUNT 10.2 K/uL (4.8-10.8)
[2018-09-07 16:21] LABS: ALB/GLOB RATIO 1.1 (1.0-2.1); ALBUMIN 4.3 g/dL (3.5-5.0); ALT/SGPT 89 U/L (9-52); AST/SGOT 72 U/L (14-36); BLOOD UREA NITROGEN 15 mg/dl (7-17); CALCIUM 9.3 mg/dL (8.4-10.2); GFR NON-AFRICAN AMERICAN > 60; LIPASE 157 U/L (23-300)
--- NOTE | 2018-09-07 17:00 | ED PDOC ---
- Laboratory Results Result Diagrams: 09/07/18 15:49 09/07/18 15:49 - ECG O2 Sat by Pulse Oximetry: 99 (RA) Pulse Ox Interpretation: Normal - Progress ED Course And Treament: 2005: Stable. AAOx3. Pain free. Tolerated po. Ambulated with no issues. Fu with pcp. Clinical sobriety met. Has capacity to make decisions. Medical Decision Making Medical Decision Makin:00 -Patient endorsed to provider by Dr. Kelsey pending reevaluation. Disposition - Clinical Impression Clinical Impression: Alcohol abuse - POA Present On Arrival: None - Disposition Referrals: [facility] [Outside] - 09/09/18 Disposition: Routine/Home Disposition Time: 20:04 Condition: STABLE Additional Instructions: Return if not better in 3 days. Instructions: Alcohol Abuse and Alcoholism (DC)
[2018-09-07 17:14] VITALS: BP 130/75; PULSE 79; RESP 19
[2018-09-08 14:01] VITALS: O2SAT 99
== END 2018-09-07 20:38 | disposition home or self-care (01) ==
LOC: H.ER 14:32
DX: F10.10 Alcohol abuse, uncomplicated (principal); R10.13 Epigastric pain; F17.210 Nicotine dependence, cigarettes, uncomplicated; I10 Essential (primary) hypertension
CPT/HCPCS: 80053; 80320; 83690; 85025; 96374; 96375; 99284; J2405; J7030

== ENCOUNTER 2018-12-07 23:12 | Emergency (ER) | payer MEDICAID ==
[2018-12-07 23:12] VITALS: BMI 31.7
[2018-12-07 23:16] VITALS: PULSE 83; RESP 18; TEMP 98.8; O2SAT 97
[2018-12-08 01:17] VITALS: BP 153/83
--- NOTE | 2018-12-08 01:45 | ED PDOC ---
HPI: Psych/Substance Abuse Time Seen by Provider: 12/08/18 01:02 Chief Complaint (Nursing): Anxiety Chief Complaint (Provider): Anxiety Attack History Per: Patient History/Exam Limitations: no limitations Current Symptoms Are (Timing): Still Present (Pt presents to the ED due to an anxious condition for which she is prescribed clonazapam 1mg TID; pt is out of medications. She indicates that she has no way of knowing when she will revisit her PMD because it has been cold outside. Pt denies other medical condition and is well known to this ED for seeking benzodiazapine medications) Past Medical History Reviewed: Historical Data, Nursing Documentation, Vital Signs Vital Signs: Last Vital Signs Temp 98.8 F 12/07/18 23:14 Pulse 83 12/07/18 23:14 Resp 18 12/07/18 23:14 BP 153/83 H 12/08/18 01:16 Pulse Ox 97 12/07/18 23:14 - Medical History PMH: Anxiety, Depression, Gastritis, GERD, HTN Denies: Diabetes, Hepatitis, HIV, Chronic Kidney Disease, Seizures, Sexually Transmitted Disease - Family History Family History: States: Unknown Family Hx - Home Medications Home Medications: Ambulatory Orders Medication Instructions Recorded Enalapril Maleate [Vasotec] 10 mg PO BID #60 tab 05/29/17 Pantoprazole [Protonix EC Tab] 20 mg PO DAILY #30 ect 05/29/17 ARIPiprazole [Abilify] 10 mg PO DAILY 30 Days #30 tab 09/05/18 Gabapentin [Neurontin] 300 mg PO TID 30 Days #90 cap 09/05/18 traZODone [Desyrel] 100 mg PO HS PRN 30 Days #30 tab 09/05/18 Folic Acid 1 mg PO DAILY tab 09/06/18 Thiamine [Vitamin B1 Tab] 100 mg PO DAILY tab 09/06/18 - Allergies Allergies/Adverse Reactions: Allergies Allergy/AdvReac Type Severity Reaction Status Date / Time No Known Allergies Allergy Verified 08/30/18 16:49 Review of Systems Psych: Positive for: Anxiety Physical Exam - Reviewed Nursing Documentation Reviewed: Yes Vital Signs Reviewed: Yes - Physical Exam Appears: Positive for: Well, Non-toxic, No Acute Distress. Negative for: Uncomfortable Head Exam: Positive for: ATRAUMATIC, NORMAL INSPECTION Skin: Positive for: Normal Color, Warm, Dry. Negative for: Diaphoresis, Pallor, Rash Eye Exam: Positive for: Normal appearance, PERRL. Negative for: Nystagmus, Periorbital swelling, Periorbital tenderness Neck: Positive for: Normal, Painless ROM, Supple. Negative for: Decreased ROM Cardiovascular/Chest: Positive for: Regular Rate, Rhythm Respiratory: Positive for: Normal Breath Sounds Pulses-Carotid (L): 2+ Pulses-Carotid (R): 2+ Pulses-Radial (L): 2+ Pulses-Radial (R): 2+ Gastrointestinal/Abdominal: Positive for: Normal Exam - ECG O2 Sat by Pulse Oximetry: 97 Medical Decision Making Medical Decision Making: I: seeking medication refill P: will provide 0.5mg of xanax and no rx It should be noted that the patient isnot experiencing any sx of benzo withdrawal; her eyes are clear and PERLLA, her skin is warm and dry and not diaphoretic; her HR is normal and she appears comfortable in her exam room Pt was seen by crisis counselor who attempted to provide information on [facility] services. Pt indicated that she does not wish services, and refuses to follow up with [facility] provider. Pt is stable for discharge Pt is exhibiting no signs of benzodiazipine withdrawal Pt gai is steady and is in no further need of emergency services from this facility Disposition - Clinical Impression Clinical Impression: Anxiety - Patient ED Disposition Is Patient to be Admitted: No Doctor Will See Patient In The: Office Counseled Patient/Family Regarding: Diagnosis, Need For Followup - Disposition Disposition: Routine/Home Disposition Time: 02:26 Condition: STABLE Additional Instructions: Follow up with your PMD You have been referred to [facility] and have been given information in writing concerning this referral. Instructions: Anxiety, Adult (DC) Forms: [employer] ([place])
== END 2018-12-08 02:43 | disposition home or self-care (01) ==
LOC: H.ER 23:12
DX: F41.9 Anxiety disorder, unspecified (principal); Z76.0 Encounter for issue of repeat prescription; I10 Essential (primary) hypertension; Z86.59 Personal history of other mental and behavioral disorders

== ENCOUNTER 2018-12-08 11:34 | Emergency (ER) | payer MEDICAID ==
[2018-12-08 11:48] VITALS: BMI 34.3
[2018-12-08 11:50] VITALS: TEMP 98.1
--- NOTE | 2018-12-08 13:08 | ED PDOC ---
HPI: Psych/Substance Abuse Time Seen by Provider: 12/08/18 13:05 Chief Complaint (Nursing): Alcohol Ingestion Chief Complaint (Provider): alcohol ingestion History Per: Patient (52 y/o female seen in ED yesterday evening for med refill request for xanax here today intoxicated and requests detox. Patient states she was in [facility] but not given xanax and thus had to drink etoh at that time.) Past Medical History Reviewed: Historical Data, Nursing Documentation, Vital Signs Vital Signs: Last Vital Signs Temp 98.1 F 12/08/18 11:49 Pulse 62 12/08/18 12:38 Resp 17 12/08/18 11:49 BP 164/108 H 12/08/18 11:49 Pulse Ox 96 12/08/18 11:49 - Medical History PMH: Anxiety, Depression, Gastritis, GERD Denies: Diabetes, Hepatitis, HIV, HTN, Chronic Kidney Disease, Seizures, Sexually Transmitted Disease - Family History Family History: States: Unknown Family Hx - Home Medications Home Medications: Ambulatory Orders Medication Instructions Recorded Enalapril Maleate [Vasotec] 10 mg PO BID #60 tab 05/29/17 Pantoprazole [Protonix EC Tab] 20 mg PO DAILY #30 ect 05/29/17 ARIPiprazole [Abilify] 10 mg PO DAILY 30 Days #30 tab 09/05/18 Gabapentin [Neurontin] 300 mg PO TID 30 Days #90 cap 09/05/18 traZODone [Desyrel] 100 mg PO HS PRN 30 Days #30 tab 09/05/18 Folic Acid 1 mg PO DAILY tab 09/06/18 Thiamine [Vitamin B1 Tab] 100 mg PO DAILY tab 09/06/18 - Allergies Allergies/Adverse Reactions: Allergies Allergy/AdvReac Type Severity Reaction Status Date / Time No Known Allergies Allergy Verified 08/30/18 16:49 Review of Systems ROS Statement: Except As Marked, All Systems Reviewed And Found Negative Physical Exam - Reviewed Nursing Documentation Reviewed: Yes Vital Signs Reviewed: Yes - Physical Exam Appears: Positive for: Well, Non-toxic, No Acute Distress Head Exam: Positive for: ATRAUMATIC, NORMAL INSPECTION, NORMOCEPHALIC Skin: Positive for: Normal Color, Warm, DRY Eye Exam: Positive for: EOMI, Normal appearance, PERRL ENT: Positive for: Normal ENT Inspection Neck: Positive for: Normal, Painless ROM Cardiovascular/Chest: Positive for: Regular Rate, Rhythm Respiratory: Positive for: CNT, Normal Breath Sounds Gastrointestinal/Abdominal: Positive for: Normal Exam, Soft Back: Positive for: Normal Inspection Extremity: Positive for: Normal ROM Neurologic/Psych: Positive for: Alert, Oriented - ECG ECG Rhythm: Positive for: Sinus Rhythm (t wave noted v1-v3 similar to old ekg from 08/30/2018) O2 Sat by Pulse Oximetry: 96 Disposition - Clinical Impression Clinical Impression: Alcohol ingestion - Disposition Disposition: Routine/Home Disposition Time: 13:12 Condition: FAIR Instructions: Alcohol Abuse and Alcoholism (DC)
[2018-12-08 13:37] VITALS: BP 134/88; PULSE 89; RESP 18; O2SAT 98
--- NOTE | 2018-12-08 16:54 | CARD ---
APPROVED REPORT Date of service: 12/08/2018 EKG Measurement Heart [id number] <Conclusion> Normal sinus rhythm Possible Left atrial enlargement ST & T wave abnormality, consider anterior ischemia Abnormal ECG
== END 2018-12-08 13:36 | disposition home or self-care (01) ==
LOC: H.ER 11:34
DX: F10.129 Alcohol abuse with intoxication, unspecified (principal); F32.9 Major depressive disorder, single episode, unspecified; F41.9 Anxiety disorder, unspecified; K21.9 Gastro-esophageal reflux disease without esophagitis

== ENCOUNTER 2019-01-09 21:15 | Emergency (ER) | payer MEDICAID ==
[2019-01-09 21:15] VITALS: BMI 34.3
[2019-01-09 21:18] VITALS: BP 113/54; PULSE 70; RESP 18; TEMP 97.8; O2SAT 97
--- NOTE | 2019-01-09 22:36 | ED PDOC ---
HPI: Psych/Substance Abuse Time Seen by Provider: 01/09/19 22:25 Chief Complaint (Nursing): Hip Pain Chief Complaint (Provider): Abdominal Pain, intoxicated History Per: Patient History/Exam Limitations: intoxication Onset/Duration Of Symptoms: Days Modifying Factor(s): Alcohol Additional Complaint(s): 53 yo F with history of alcoholism brought in by EMS for evaluation of abdominal pain for 4-5 days. Pt reports pain is in LLQ and wraps around to her low back. Pt reports she thinks she has pancreatitis again and is requesting blood work. She reports drinking beers and fireball shots today. Pt denies fever, chills, nausea, vomiting, urinary symptoms or chest pain. Past Medical History Reviewed: Historical Data, Nursing Documentation, Vital Signs Vital Signs: Last Vital Signs Temp 97.8 F 01/09/19 21:18 Pulse 70 01/09/19 21:18 Resp 18 01/09/19 21:18 BP 113/54 L 01/09/19 21:18 Pulse Ox 97 01/09/19 21:18 - Medical History PMH: Anxiety, Depression, Gastritis, GERD, Hepatitis (C), Post Traumatic Stress Disorder Denies: Diabetes, HIV, HTN, Chronic Kidney Disease, Seizures, Sexually Transmitted Disease Other PMH: pancreatitis - Family History Family History: States: Unknown Family Hx - Social History Alcohol: > 2 Drinks/Day - Immunization History Hx Tetanus Toxoid Vaccination: No Hx Influenza Vaccination: No Hx Pneumococcal Vaccination: No - Home Medications Home Medications: Ambulatory Orders Medication Instructions Recorded Enalapril Maleate [Vasotec] 10 mg PO BID #60 tab 05/29/17 Clonazepam 1 mg PO TID 12/08/18 Enalapril Maleate [Vasotec] 10 mg PO BID #30 tab 12/12/18 Pantoprazole [Protonix EC Tab] 40 mg PO DAILY #30 ect 12/12/18 traZODone [Desyrel] 50 mg PO HS PRN #30 tab 12/12/18 - Allergies Allergies/Adverse Reactions: Allergies Allergy/AdvReac Type Severity Reaction Status Date / Time No Known Allergies Allergy Verified 08/30/18 16:49 Review of Systems Constitutional: Negative for: Fever Gastrointestinal: Positive for: Abdominal Pain. Negative for: Nausea, Vomiting Physical Exam - Reviewed Nursing Documentation Reviewed: Yes - Physical Exam Comments: GENERALIZED APPEARANCE: Patient is awake, alert, oriented x3 in no acute distress. intoxicated SKIN: Warm, dry; (-) cyanosis. EYES: (-) conjunctival pallor, (-) scleral icterus. ENMT: Mucous membranes moist. NECK: (-) tenderness, (-) stiffness, (-) lymphadenopathy. CHEST AND RESPIRATORY: (-) rales, (-) rhonchi, (-) wheezes; breath sounds equal bilaterally. HEART AND CARDIOVASCULAR: (-) irregularity; (-) murmur, (-) gallop. ABDOMEN AND GI: (-) distention. Bowel sounds active; (-) tenderness(-) guarding, (-) rebound, (-) palpable masses, (-) CVA tenderness. EXTREMITIES: (-) deformity, (-) edema, (+) distal pulses. NEURO AND PSYCH: Mental status as above; normal steady gait, (-) focal findings. - ECG O2 Sat by Pulse Oximetry: 97 Medical Decision Making Medical Decision Makin initial eval 53yo F h/o alcoholism and pancreatitis, obviously intoxicated with reported abdominal pain but no reproducible tenderness --CBC, CMP, Lipase to r/o pancreatitis Shortly after my eval pt left without treatment, lab orders had not been placed pt was intoxicated, functioning alcoholic, A&Ox3, walking with steady gait Disposition - Clinical Impression Clinical Impression: Alcohol abuse with intoxication, Abdominal pain - Patient ED Disposition Is Patient to be Admitted: No - Disposition Disposition: Left W/O Treatment (left prior to labs or any treatment) Disposition Time: 22:30 Condition: STABLE - POA Present On Arrival: None
== END 2019-01-09 22:30 | disposition left against medical advice (07) ==
LOC: H.ER 21:15
DX: F10.129 Alcohol abuse with intoxication, unspecified (principal); R10.32 Left lower quadrant pain; F43.10 Post-traumatic stress disorder, unspecified; K21.9 Gastro-esophageal reflux disease without esophagitis

== ENCOUNTER 2019-01-11 01:13 | Emergency (ER) | payer MEDICAID ==
[2019-01-11 01:13] VITALS: BMI 34.3
--- NOTE | 2019-01-11 02:00 | ED PDOC ---
HPI: Psych/Substance Abuse Time Seen by Provider: 01/11/19 01:37 Chief Complaint (Nursing): Anxiety Chief Complaint (Provider): Anxiety History Per: Patient History/Exam Limitations: no limitations Onset/Duration Of Symptoms: Days Current Symptoms Are (Timing): Still Present Additional Complaint(s): Amber Phillips is a 53 year old female, with a past medical history of HTN and anxiety, who presents to the emergency department for evaluation of anxiety. Patient reports being anxious because she ran out of her medications x3 days ago. She is currently taking Klonopin 1mg. She denies any chest pain, shortness of breath, suicidal or homicidal ideation, no drug or alcohol abuse today. No further medical complaints. PMD: None provided. Past Medical History Reviewed: Historical Data, Nursing Documentation, Vital Signs Vital Signs: Last Vital Signs Temp 98.6 F 01/11/19 01:25 Pulse 90 01/11/19 01:25 Resp 17 01/11/19 01:25 BP 187/110 H 01/11/19 01:25 Pulse Ox 96 01/11/19 01:25 - Medical History PMH: Anxiety, Depression, Gastritis, GERD, Hepatitis (C), HTN, Post Traumatic Stress Disorder Denies: Diabetes, HIV, Chronic Kidney Disease, Seizures, Sexually Transmitted Disease - Surgical History Surgical History: No Surg Hx - Family History Family History: States: Unknown Family Hx - Social History Alcohol: None Drugs: Denies - Immunization History Hx Tetanus Toxoid Vaccination: No Hx Influenza Vaccination: No Hx Pneumococcal Vaccination: No - Home Medications Home Medications: Ambulatory Orders Medication Instructions Recorded Enalapril Maleate [Vasotec] 10 mg PO BID #60 tab 05/29/17 Clonazepam 1 mg PO TID 12/08/18 Enalapril Maleate [Vasotec] 10 mg PO BID #30 tab 12/12/18 Pantoprazole [Protonix EC Tab] 40 mg PO DAILY #30 ect 12/12/18 traZODone [Desyrel] 50 mg PO HS PRN #30 tab 12/12/18 - Allergies Allergies/Adverse Reactions: Allergies Allergy/AdvReac Type Severity Reaction Status Date / Time No Known Allergies Allergy Verified 01/11/19 01:26 Review of Systems ROS Statement: Except As Marked, All Systems Reviewed And Found Negative Cardiovascular: Negative for: Chest Pain Respiratory: Negative for: Shortness of Breath Psych: Positive for: Anxiety. Negative for: Suicidal ideation (or homicidal ideation) Physical Exam - Reviewed Nursing Documentation Reviewed: Yes Vital Signs Reviewed: Yes - Physical Exam Appears: Positive for: No Acute Distress (mildly anxious appearing) Head Exam: Positive for: ATRAUMATIC, NORMAL INSPECTION, NORMOCEPHALIC Skin: Positive for: Normal Color, Warm, Dry Eye Exam: Positive for: Normal appearance, EOMI, PERRL Neck: Positive for: Normal, Painless ROM, Supple Cardiovascular/Chest: Positive for: Regular Rate, Rhythm. Negative for: Murmur Respiratory: Positive for: Normal Breath Sounds. Negative for: Respiratory Distress Gastrointestinal/Abdominal: Positive for: Normal Exam, Soft. Negative for: Tenderness Back: Positive for: Normal Inspection. Negative for: L CVA Tenderness, R CVA Tenderness Extremity: Positive for: Normal ROM (upper and lower extremities). Negative for: Deformity Neurological/Psych: Positive for: Awake, Alert, Normal Tone, Oriented - ECG O2 Sat by Pulse Oximetry: 96 (RA) Pulse Ox Interpretation: Normal Medical Decision Making Medical Decision Making: Time: 01:37 A/P: 53 year old with history of anxiety presenting for anxiety in setting of known medication noncompliance. Initial Plan: --Klonopin 1mg PO --Reevaluation 01:50 -Instructed patient that she will not receive any prescription from the ER for chronic condition. Will give one dose of Klonopin in ED. 02:00 Upon provider evaluation patient is medically stable, and requires no further treatment in the ED at this time. Patient will be discharged home. Counseling was provided and all questions were answered regarding diagnosis and need for follow up with PMD. There is agreement to discharge plan. Return if symptoms persist or worsen. Scribe Attestation: Documented by Julian Uriarte, acting as a scribe for Eddie Luke MD Provider Scribe Attestation: All medical record entries made by the Scribe were at my direction and personally dictated by me. I have reviewed the chart and agree that the record accurately reflects my personal performance of the history, physical exam, medical decision making, and the department course for this patient. I have also personally directed, reviewed, and agree with the discharge instructions and disposition. Disposition - Clinical Impression Clinical Impression: Anxiety - Patient ED Disposition Is Patient to be Admitted: No - Disposition Referrals: [facility] [Outside] Disposition: Routine/Home Disposition Time: 02:00 Condition: IMPROVED Instructions: Anxiety, Adult (DC) Forms: [employer] (C[place]ican)
[2019-01-11 03:34] VITALS: BP 151/98; PULSE 79; RESP 20; TEMP 98.1; O2SAT 97
== END 2019-01-11 03:48 | disposition home or self-care (01) ==
LOC: H.ER 01:13
DX: F41.9 Anxiety disorder, unspecified (principal); Z86.59 Personal history of other mental and behavioral disorders; F43.10 Post-traumatic stress disorder, unspecified; I10 Essential (primary) hypertension; Z91.14 Patient's other noncompliance with medication regimen

== ENCOUNTER 2019-01-23 18:51 | Emergency (ER) | payer MEDICAID ==
[2019-01-23 18:51] VITALS: BMI 34.3
[2019-01-23 19:00] VITALS: RESP 20; TEMP 98.9; O2SAT 99
--- NOTE | 2019-01-23 20:00 | ED PDOC ---
HPI: Psych/Substance Abuse Time Seen by Provider: 01/23/19 19:50 Chief Complaint (Nursing): Abdominal Pain History Per: EMS Onset/Duration Of Symptoms: Unknown Current Symptoms Are (Timing): Still Present Modifying Factor(s): Alcohol Associated Symptoms: denies: Suicidal Thoughts Additional Complaint(s): Brought by EMS, admits to ETOH ingestion. Denies SI or HI. Denies injury Past Medical History Vital Signs: Last Vital Signs Temp 98.9 F 01/23/19 18:56 Pulse 54 L 01/23/19 18:56 Resp 20 01/23/19 18:56 BP 157/89 H 01/23/19 18:56 Pulse Ox 99 01/23/19 18:56 - Medical History PMH: Anxiety, Depression, Gastritis, GERD, Hepatitis (C), Post Traumatic Stress Disorder Denies: Diabetes, HIV, HTN, Chronic Kidney Disease, Seizures, Sexually Transmitted Disease - Family History Family History: States: Unknown Family Hx - Immunization History Hx Tetanus Toxoid Vaccination: No Hx Influenza Vaccination: No Hx Pneumococcal Vaccination: No - Home Medications Home Medications: Ambulatory Orders Medication Instructions Recorded Enalapril Maleate [Vasotec] 10 mg PO BID #60 tab 05/29/17 Clonazepam 1 mg PO TID 12/08/18 Enalapril Maleate [Vasotec] 10 mg PO BID #30 tab 12/12/18 Pantoprazole [Protonix EC Tab] 40 mg PO DAILY #30 ect 12/12/18 traZODone [Desyrel] 50 mg PO HS PRN #30 tab 12/12/18 - Allergies Allergies/Adverse Reactions: Allergies Allergy/AdvReac Type Severity Reaction Status Date / Time No Known Allergies Allergy Verified 01/23/19 18:56 Review of Systems ROS Statement: Except As Marked, All Systems Reviewed And Found Negative Physical Exam - Reviewed Nursing Documentation Reviewed: Yes Vital Signs Reviewed: Yes - Physical Exam Appears: Positive for: Non-toxic, No Acute Distress Head Exam: Positive for: ATRAUMATIC, NORMAL INSPECTION, NORMOCEPHALIC Skin: Positive for: Normal Color, Warm, DRY Eye Exam: Positive for: EOMI, Normal appearance, PERRL ENT: Positive for: Normal ENT Inspection Neck: Positive for: Normal, Painless ROM Cardiovascular/Chest: Positive for: Regular Rate, Rhythm Respiratory: Positive for: CNT, Normal Breath Sounds Gastrointestinal/Abdominal: Positive for: Normal Exam, Soft Back: Positive for: Normal Inspection Extremity: Positive for: Normal ROM Neurological/Psych: Positive for: Awake, Alert, Normal Tone. Negative for: Motor/Sensory Deficits - ECG O2 Sat by Pulse Oximetry: 99 - Progress Re-evaluation Time: 23:33 Condition: Improved (Awake alert oriented x 3 No focal deficits Denies SI/HI) Disposition - Clinical Impression Clinical Impression: Alcohol abuse with intoxication - Patient ED Disposition Is Patient to be Admitted: No Counseled Patient/Family Regarding: Diagnosis, Need For Followup - Disposition Referrals: [facility] [Outside] Disposition: Routine/Home Disposition Time: 23:35 Condition: FAIR Instructions: Alcohol Use - When Is Drinking a Problem? Forms: [employer] (Jamaican)
[2019-01-24 00:08] VITALS: BP 133/76; PULSE 75
== END 2019-01-23 23:45 | disposition home or self-care (01) ==
LOC: H.ER 18:51
DX: F10.129 Alcohol abuse with intoxication, unspecified (principal); Z86.59 Personal history of other mental and behavioral disorders; F43.10 Post-traumatic stress disorder, unspecified; Y90.8 Blood alcohol level of 240 mg/100 ml or more

== ENCOUNTER 2019-01-25 09:36 | Emergency (ER) | payer MEDICAID ==
[2019-01-25 09:37] VITALS: BMI 34.3
[2019-01-25 09:48] VITALS: TEMP 97.8
[2019-01-25 10:11] VITALS: O2SAT 100
[2019-01-25 10:44] VITALS: BP 151/87; PULSE 97; RESP 16
--- NOTE | 2019-01-25 10:54 | ED PDOC ---
HPI: Psych/Substance Abuse Time Seen by Provider: 01/25/19 09:53 Chief Complaint (Nursing): Anxiety History Per: Patient History/Exam Limitations: no limitations Onset/Duration Of Symptoms: Hrs Current Symptoms Are (Timing): Still Present Suicide/Self Injury Attempted (Context): None Modifying Factor(s): None Associated Symptoms: Anxiety Additional Complaint(s): Pt. is a 53 yr. old woman with anxiety and htn reports to ED today because she feels anxious. Pt. reports she usually takes klonopin but recently ran out. She denies any suicidal or homicial ideation. Pt. otherwise feels well, no complaint. Pt. was recently seen here for etoh abuse but denies any drinking last night or today. Past Medical History Vital Signs: Last Vital Signs Temp 97.8 F 01/25/19 09:46 Pulse 97 H 01/25/19 10:44 Resp 16 01/25/19 10:44 BP 151/87 H 01/25/19 10:44 Pulse Ox 100 01/25/19 10:44 - Medical History PMH: Anxiety, Depression, Gastritis, GERD, Hepatitis (C), Post Traumatic Stress Disorder Denies: Diabetes, HIV, HTN, Chronic Kidney Disease, Seizures, Sexually Transmitted Disease - Family History Family History: States: Unknown Family Hx - Immunization History Hx Tetanus Toxoid Vaccination: No Hx Influenza Vaccination: No Hx Pneumococcal Vaccination: No - Home Medications Home Medications: Ambulatory Orders Medication Instructions Recorded Enalapril Maleate [Vasotec] 10 mg PO BID #60 tab 05/29/17 Clonazepam 1 mg PO TID 12/08/18 Enalapril Maleate [Vasotec] 10 mg PO BID #30 tab 12/12/18 Pantoprazole [Protonix EC Tab] 40 mg PO DAILY #30 ect 12/12/18 traZODone [Desyrel] 50 mg PO HS PRN #30 tab 12/12/18 - Allergies Allergies/Adverse Reactions: Allergies Allergy/AdvReac Type Severity Reaction Status Date / Time No Known Allergies Allergy Verified 01/23/19 18:56 Review of Systems Constitutional: Negative for: Fever, Chills Cardiovascular: Negative for: Chest Pain, Palpitations Respiratory: Negative for: Shortness of Breath Psych: Positive for: Anxiety. Negative for: Psychosis, Suicidal ideation Physical Exam - Physical Exam Appears: Positive for: Well, Non-toxic Head Exam: Positive for: ATRAUMATIC Skin: Positive for: Normal Color Eye Exam: Positive for: Normal appearance Cardiovascular/Chest: Positive for: Regular Rate, Rhythm Respiratory: Positive for: Normal Breath Sounds Gastrointestinal/Abdominal: Positive for: Normal Exam Neurological/Psych: Positive for: Awake, Alert, Normal Tone - ECG O2 Sat by Pulse Oximetry: 100 Medical Decision Making Medical Decision Making: Pt. given klonopin 0.5mg. Pt. told she will have to f/u with her PMD for rx refill. Pt. well appearing, deneis SI/HI. Repeat bp 151/87, HR 97. Pt. was evaluated by template worker and cleared for d/c home, d/w Dr. Cooper. Disposition - Clinical Impression Clinical Impression: Anxiety - Patient ED Disposition Is Patient to be Admitted: No Counseled Patient/Family Regarding: Diagnosis, Need For Followup - Disposition Disposition: Routine/Home Disposition Time: 11:05 Condition: STABLE Instructions: Anxiety, Adult (DC) Forms: [employer] (Ethiopian)
== END 2019-01-25 11:05 | disposition home or self-care (01) ==
LOC: H.ER 09:36
DX: F41.9 Anxiety disorder, unspecified (principal); I10 Essential (primary) hypertension

== ENCOUNTER 2019-02-14 21:55 | Emergency (ER) | payer MEDICAID ==
[2019-02-14 21:56] VITALS: BMI 34.3
[2019-02-14 22:02] VITALS: RESP 16
[2019-02-14] MEDS ORDERED: Multivitamin (MVI) 10 ML, Thiamine 100 MG, Folic Acid 1 MG in Sodium Chloride 0.9% 1,00... IV ONE (22:10)
[2019-02-14 23:07] LABS: BASO # 0.1 K/uL (0.0-0.2); EOS # 0.1 K/uL (0.0-0.7); EOS % 0.8 % (0.0-4.0); HEMOGLOBIN 13.2 g/dL (12.0-16.0); LYMPH # 3.2 K/uL (1.0-4.3); LYMPH % 42.7 % (20.0-40.0); MEAN CELL VOLUME 94.9 fl (81.0-99.0); MEAN CORPUSCULAR HEMOGLOBIN 32.2 pg (27.0-31.0); MEAN CORPUSCULAR HGB CONC 33.9 g/dL (33.0-37.0); MEAN PLATELET VOLUME 9.1 fl (7.2-11.7); MONO # 0.6 K/uL (0.0-0.8); MONO % 8.1 % (0.0-10.0); NEUT # 3.5 K/uL (1.8-7.0); NEUT % 47.4 % (50.0-75.0); NRBC % 0.1 % (0.0-0.0); RBC 4.1 Mil/uL (3.80-5.20); RED CELL DISTRIBUTION WIDTH 13.8 % (11.5-14.5); WHITE BLOOD COUNT 7.5 K/uL (4.8-10.8)
[2019-02-14 23:12] LABS: INR 1.1; PROTHROMBIN TIME 12.6 Seconds (9.8-13.1)
[2019-02-14 23:15] LABS: PARTIAL THROMBOPLASTIN TIME 34.6 Seconds (25.6-37.1)
[2019-02-14 23:16] LABS: ALB/GLOB RATIO 1.1 (1.0-2.1); ALBUMIN 4.3 g/dL (3.5-5.0); ALT/SGPT 294 U/L (9-52); AST/SGOT 327 U/L (14-36); BLOOD UREA NITROGEN 11 mg/dl (7-17); GFR NON-AFRICAN AMERICAN > 60
--- NOTE | 2019-02-14 23:51 | ED PDOC ---
HPI: Psych/Substance Abuse Time Seen by Provider: 02/14/19 22:08 Chief Complaint (Nursing): Alcohol Ingestion Chief Complaint (Provider): Alcohol and Cocaine abuse History Per: Patient History/Exam Limitations: no limitations Onset/Duration Of Symptoms: Hrs Modifying Factor(s): Alcohol, Cocaine Additional Complaint(s): 53 year old homeless female with a history of benzodiazepines dependency presents to the ED for an evaluation of alcohol and cocaine use. P atient admits to drinking alcohol and using cocaine earlier today. She also reports of one episode of bloody diarrhea that resolved. Otherwise, patient denies abdominal pain, nausea, vomiting or fever. Patient is also well known to the providers due to multiple visits to the ED. PMD: no family provider Past Medical History Reviewed: Historical Data, Nursing Documentation, Vital Signs Vital Signs: Last Vital Signs Temp 98.1 F 02/14/19 21:58 Pulse 81 02/14/19 21:58 Resp 16 02/14/19 21:58 BP 100/61 02/14/19 21:58 Pulse Ox 96 02/14/19 21:58 Primary Care Provider: FAMILY PROVIDER,NO - Medical History PMH: Anxiety, Depression, Gastritis, GERD, Hepatitis (C), Post Traumatic Stress Disorder Denies: Diabetes, HIV, HTN, Chronic Kidney Disease, Seizures, Sexually Transmitted Disease - Family History Family History: States: Unknown Family Hx - Social History Alcohol: < 2 Drinks/Day Drugs: Cocaine - Immunization History Hx Tetanus Toxoid Vaccination: No Hx Influenza Vaccination: No Hx Pneumococcal Vaccination: No - Home Medications Home Medications: Ambulatory Orders Medication Instructions Recorded Enalapril Maleate [Vasotec] 10 mg PO BID #60 tab 05/29/17 Clonazepam 1 mg PO TID 12/08/18 Enalapril Maleate [Vasotec] 10 mg PO BID #30 tab 12/12/18 Pantoprazole [Protonix EC Tab] 40 mg PO DAILY #30 ect 12/12/18 traZODone [Desyrel] 50 mg PO HS PRN #30 tab 12/12/18 - Allergies Allergies/Adverse Reactions: Allergies Allergy/AdvReac Type Severity Reaction Status Date / Time No Known Allergies Allergy Verified 02/14/19 21:58 Review of Systems ROS Statement: Except As Marked, All Systems Reviewed And Found Negative Cardiovascular: Negative for: Chest Pain Gastrointestinal: Positive for: Diarrhea. Negative for: Nausea, Vomiting, Abdominal Pain Psych: Negative for: Suicidal ideation, Other (homicidal ideation ) Physical Exam - Reviewed Nursing Documentation Reviewed: Yes Vital Signs Reviewed: Yes - Physical Exam Appears: Positive for: Well, Non-toxic, No Acute Distress Head Exam: Positive for: ATRAUMATIC, NORMAL INSPECTION, NORMOCEPHALIC Skin: Positive for: Normal Color, Warm, Dry. Negative for: Rash Eye Exam: Positive for: EOMI, Normal appearance, PERRL ENT: Positive for: Normal ENT Inspection Neck: Positive for: Normal, Painless ROM Cardiovascular/Chest: Positive for: Regular Rate, Rhythm. Negative for: Murmur Respiratory: Positive for: Normal Breath Sounds. Negative for: Decreased Breath Sounds, Wheezing, Respiratory Distress Gastrointestinal/Abdominal: Positive for: Normal Exam, Soft. Negative for: Tenderness Back: Positive for: Normal Inspection Extremity: Positive for: Normal ROM. Negative for: Tenderness, Pedal Edema, Deformity Neurological/Psych: Positive for: Awake, Alert, Normal Tone, Oriented (x3). Negative for: Motor/Sensory Deficits - Laboratory Results Result Diagrams: 02/14/19 22:50 02/14/19 22:50 Lab Results: PT 12.6 Seconds (9.8-13.1) 02/14/19 22:50 INR 1.1 02/14/19 22:50 APTT 34.6 Seconds (25.6-37.1) 02/14/19 22:50 Total Bilirubin 0.5 mg/dl (0.2-1.3) 02/14/19 22:50 AST 327 U/L (14-36) H D 02/14/19 22:50 ALT 294 U/L (9-52) H D 02/14/19 22:50 Alkaline Phosphatase 147 U/L (38-126) H 02/14/19 22:50 Total Protein 8.3 G/DL (6.3-8.2) H 02/14/19 22:50 Albumin 4.3 g/dL (3.5-5.0) 02/14/19 22:50 Globulin 4.0 gm/dL (2.2-3.9) H 02/14/19 22:50 Albumin/Globulin Ratio 1.1 (1.0-2.1) 02/14/19 22:50 - ECG O2 Sat by Pulse Oximetry: 96 (RA) Pulse Ox Interpretation: Normal Medical Decision Making Medical Decision Making: Time: 2208 Impression: 53yo female with alcohol and cocaine abuse Plan: ABO/RH type Type and screen Alcohol serum CMP Drug screen Magnesium Urine ED urine dipstick CBC w/ differential PTT Prothrombin time Glucose, POC Accucheck Sodium Chloride 1000 mls/hr Reevaluation 0507 Patient is stable for discharge. Labs reviewed demonstrate no clinically significant abnormalities excepts for elevated LFTs which are unchanged and secondary to alcoholism Scribe Attestation: Documented by Sebastián Sullivan, acting as a scribe for Greyson Avila MD Provider Scribe Attestation: All medical record entries made by the Scribe were at my direction and personally dictated by me. I have reviewed the chart and agree that the record accurately reflects my personal performance of the history, physical exam, medical decision making, and the department course for this patient. I have also personally directed, reviewed, and agree with the discharge instructions and disposition. Disposition - Clinical Impression Clinical Impression: Alcohol abuse with uncomplicated intoxication, Cocaine abuse - Patient ED Disposition Is Patient to be Admitted: No - Disposition Disposition: Routine/Home Disposition Time: 05:07 Condition: STABLE Instructions: Alcohol Use - When Is Drinking a Problem?, Cocaine Use Disorder Forms: [employer] (Chinese)
[2019-02-15 04:12] LABS: BENZODIAZEPINES, UR NEGATIVE (NEGATIVE)
[2019-02-15 04:20] LABS: BARBITURATES, UR NEGATIVE (NEGATIVE); OPIATES, UR NEGATIVE (NEGATIVE); PHENCYCLIDINE, UR NEGATIVE (NEGATIVE)
[2019-02-15 06:15] VITALS: BP 116/64; PULSE 74; TEMP 98
[2019-02-16 02:48] VITALS: O2SAT 96
== END 2019-02-15 05:55 | disposition home or self-care (01) ==
LOC: H.ER 21:55
DX: F10.220 Alcohol dependence with intoxication, uncomplicated (principal); F14.10 Cocaine abuse, uncomplicated; F32.9 Major depressive disorder, single episode, unspecified; F43.10 Post-traumatic stress disorder, unspecified; K21.9 Gastro-esophageal reflux disease without esophagitis; Z59.0 Homelessness
CPT/HCPCS: 80053; 80320; 80324; 80345; 80346; 80349; 80353; 80358; 80361; 82948; 83735; 83992; 85025; 85610; 85730; 86850; 86900; 96374; 99282; J3411; J7030

== ENCOUNTER 2019-02-25 18:12 | Emergency (ER) | payer MEDICAID ==
[2019-02-25 18:12] VITALS: BMI 34.3
[2019-02-25 18:48] VITALS: BP 142/99; PULSE 96; RESP 18; TEMP 98.6; O2SAT 98
--- NOTE | 2019-02-25 19:15 | ED PDOC ---
HPI: Psych/Substance Abuse Time Seen by Provider: 02/25/19 18:44 Chief Complaint (Nursing): Alcohol Ingestion Chief Complaint (Provider): Alcohol Ingestion History Per: Patient, EMS History/Exam Limitations: no limitations Additional Complaint(s): 53 year old female presents to the ED via EMS for evaluation s/p being found on the streets vomiting. Patient admits to drinking four tall cans of beer and five fireball shooters throughout the morning and afternoon when she vomited on the sidewalk. Patient denies any nausea, dizziness, light headedness, or complaints, but does say that her "stomach feels sensitive." Past Medical History Reviewed: Historical Data, Nursing Documentation, Vital Signs Vital Signs: Last Vital Signs Temp 98.6 F 02/25/19 18:17 Pulse 96 H 02/25/19 18:17 Resp 18 02/25/19 18:17 BP 142/99 H 02/25/19 18:17 Pulse Ox 98 02/25/19 18:17 Primary Care Provider: FAMILY PROVIDER,NO - Medical History PMH: Anxiety, Depression, Gastritis, GERD, Hepatitis (C), Post Traumatic Stress Disorder Denies: Diabetes, HIV, HTN, Chronic Kidney Disease, Seizures, Sexually Transmitted Disease - Surgical History Surgical History: No Surg Hx - Family History Family History: States: Unknown Family Hx - Living Arrangements Living Arrangements: Other (homeless) - Social History Current smoker - smoking cessation education provided: Yes Alcohol: > 2 Drinks/Day Drugs: Denies - Immunization History Hx Tetanus Toxoid Vaccination: No Hx Influenza Vaccination: No Hx Pneumococcal Vaccination: No - Home Medications Home Medications: Ambulatory Orders Medication Instructions Recorded Enalapril Maleate [Vasotec] 10 mg PO BID #60 tab 05/29/17 Clonazepam 1 mg PO TID 12/08/18 Enalapril Maleate [Vasotec] 10 mg PO BID #30 tab 12/12/18 Pantoprazole [Protonix EC Tab] 40 mg PO DAILY #30 ect 12/12/18 traZODone [Desyrel] 50 mg PO HS PRN #30 tab 12/12/18 Cyclobenzaprine [Flexeril] 5 mg PO TID #90 tab 02/20/19 Enalapril Maleate [Vasotec] 10 mg PO BID #60 tab 02/20/19 Gabapentin [Neurontin] 300 mg PO TID #90 cap 02/20/19 Pantoprazole [Protonix EC Tab] 40 mg PO DAILY #30 ect 02/20/19 traZODone [Desyrel] 50 mg PO HS PRN #30 tab 02/20/19 - Allergies Allergies/Adverse Reactions: Allergies Allergy/AdvReac Type Severity Reaction Status Date / Time No Known Allergies Allergy Verified 02/14/19 21:58 Review of Systems ROS Statement: Except As Marked, All Systems Reviewed And Found Negative Cardiovascular: Negative for: Light Headedness Gastrointestinal: Positive for: Vomiting (x1 episode, since resolved), Other ("stomach feels sensitive"). Negative for: Nausea Neurological: Negative for: Dizziness Psych: Positive for: Other (etoh use) Physical Exam - Reviewed Nursing Documentation Reviewed: Yes Vital Signs Reviewed: Yes - Physical Exam Comments: GENERAL APPEARANCE: Patient is awake, alert, oriented x 3, in no acute distress. SKIN: Warm, dry HEAD: (-) scalp swelling, (-) scalp tenderness. EYES: EOMI, PERRLA ENMT: Mucous membranes moist. NECK: full ROM, (-) tenderness HEART AND CARDIOVASCULAR: RRR CHEST AND RESPIRATORY: breath sounds equal and non-labored. ABDOMEN: Soft, (-) distention, (-) tenderness, (-) guarding. NEURO AND PSYCH: Mental status as above. Affect: calm. pt cooperative. Gait: steady. - ECG O2 Sat by Pulse Oximetry: 98 (RA) Pulse Ox Interpretation: Normal Medical Decision Making Medical Decision Making: Time: 1899 Initial Impression: etoh abuse Initial Plan: --Zofran 4mg PO --Accucheck --Reevaluate pt has not vomited, A&O x3, ambulating with steady gait, stable for dc Discussed results, diagnosis, treatment, return precautions and f/u with pt who is understanding, in agreement and stable for dc ------- Scribe Attestation: Documented by Leti Galeano, acting as a scribe for Carlin Yanes PA-C. Provider Scribe Attestation: All medical record entries made by the Scribe were at my direction and personally dictated by me. I have reviewed the chart and agree that the record accurately reflects my personal performance of the history, physical exam, medical decision making, and the department course for this patient. I have also personally directed, reviewed, and agree with the discharge instructions and di sposition. Disposition - Clinical Impression Clinical Impression: Alcohol abuse - Patient ED Disposition Is Patient to be Admitted: No Counseled Patient/Family Regarding: Studies Performed, Diagnosis, Need For Followup - Disposition Referrals: your, doctor [Other] Disposition: Routine/Home Disposition Time: 19:30 Condition: STABLE Additional Instructions: return to ed for new or worsening symptoms. follow up with your doctor Instructions: Alcohol Intoxication (ED), Abuse of Alcohol (ED), Alcohol Dependence (ED) Print Language: NEPALESE - POA Present On Arrival: None
== END 2019-02-25 19:37 | disposition home or self-care (01) ==
LOC: H.ER 18:12
DX: F10.10 Alcohol abuse, uncomplicated (principal); F43.10 Post-traumatic stress disorder, unspecified

== ENCOUNTER 2019-03-04 16:53 | Emergency (ER) | payer MEDICAID ==
[2019-03-04 16:53] VITALS: BMI 34.3
[2019-03-04 16:58] VITALS: RESP 16
--- NOTE | 2019-03-04 19:23 | ED PDOC ---
HPI: Psych/Substance Abuse Time Seen by Provider: 03/04/19 17:48 Chief Complaint (Nursing): Alcohol Ingestion Chief Complaint (Provider): Alcohol Ingestion History Per: Patient, EMS History/Exam Limitations: intoxication Suicide/Self Injury Attempted (Context): None Modifying Factor(s): Alcohol Additional Complaint(s): 53 year old female presents to the ED for etoh use. As per EMS, a bystander saw patient walking unsteady outside and called help when she fell. Bystander unsure if patient hit her head or not. Patient admits to drinking today, but offers no complaints. No obvious signs of trauma upon arrival. Past Medical History Reviewed: Historical Data, Nursing Documentation, Vital Signs Vital Signs: Last Vital Signs Temp 98.3 F 03/04/19 16:56 Pulse 92 H 03/04/19 16:56 Resp 16 03/04/19 16:56 BP 154/77 H 03/04/19 16:56 Pulse Ox 100 03/04/19 16:56 Primary Care Provider: FAMILY PROVIDER,NO - Medical History PMH: Anxiety, Depression, Gastritis, GERD, Hepatitis (C), Post Traumatic Stress Disorder Denies: Diabetes, HIV, HTN, Chronic Kidney Disease, Seizures, Sexually Transmitted Disease - Surgical History Surgical History: No Surg Hx - Family History Family History: States: Unknown Family Hx - Living Arrangements Living Arrangements: Alone - Social History Current smoker - smoking cessation education provided: No Alcohol: Other (hx abuse) - Immunization History Hx Tetanus Toxoid Vaccination: No Hx Influenza Vaccination: No Hx Pneumococcal Vaccination: No - Home Medications Home Medications: Ambulatory Orders Medication Instructions Recorded Enalapril Maleate [Vasotec] 10 mg PO BID #60 tab 05/29/17 Clonazepam 1 mg PO TID 12/08/18 Enalapril Maleate [Vasotec] 10 mg PO BID #30 tab 12/12/18 Pantoprazole [Protonix EC Tab] 40 mg PO DAILY #30 ect 12/12/18 traZODone [Desyrel] 50 mg PO HS PRN #30 tab 12/12/18 Cyclobenzaprine [Flexeril] 5 mg PO TID #90 tab 02/20/19 Enalapril Maleate [Vasotec] 10 mg PO BID #60 tab 02/20/19 Gabapentin [Neurontin] 300 mg PO TID #90 cap 02/20/19 Pantoprazole [Protonix EC Tab] 40 mg PO DAILY #30 ect 02/20/19 traZODone [Desyrel] 50 mg PO HS PRN #30 tab 02/20/19 Nitrofurantoin Macrocrystals 100 mg PO BID 5 Days cap 03/07/19 [Macrobid] - Allergies Allergies/Adverse Reactions: Allergies Allergy/AdvReac Type Severity Reaction Status Date / Time No Known Allergies Allergy Verified 03/06/19 21:26 Review of Systems Review Of Systems: ROS cannot be obtained secondary to pt's inabilty to answer questions. Physical Exam - Reviewed Nursing Documentation Reviewed: Yes Vital Signs Reviewed: Yes - Physical Exam Appears: Positive for: No Acute Distress Head Exam: Positive for: ATRAUMATIC Skin: Positive for: Normal Color, Warm Eye Exam: Positive for: Normal appearance Neck: Positive for: Normal Cardiovascular/Chest: Negative for: Bradycardia, Tachycardia Respiratory: Negative for: Accessory Muscle Use, Respiratory Distress Neurological/Psych: Positive for: Awake, Alert - ECG O2 Sat by Pulse Oximetry: 100 (RA) Pulse Ox Interpretation: Normal Medical Decision Making Medical Decision Making: Time: 1742 Initial Impression: etoh use Initial Plan: --Ativan 1mg PO --CT head without contrast CT FINDINGS: BRAIN: No acute intraparenchymal hemorrhage. No mass lesion. No CT evidence for acute territorial infarct. No midline shift or extra-axial collections. VENTRICLES: No hydrocephalus. ORBITS: The orbits are unremarkable. SINUSES AND MASTOIDS: The paranasal sinuses and mastoid air cells are clear. BONES: No fracture. SOFT TISSUES: Unremarkable. IMPRESSION: No acute intracranial abnormality. Scribe Attestation: Documented by Leti Galeano, acting as a scribe for Randa Yeager PA-C Provider Scribe Attestation: All medical record entries made by the Scribe were at my direction and personally dictated by me. I have reviewed the chart and agree that the record accurately reflects my personal performance of the history, physical exam, medical decision making, and the department course for this patient. I have also personally directed, reviewed, and agree with the discharge instructions and disposition. Disposition - Clinical Impression Clinical Impression: Alcohol intoxication - Disposition Disposition: Routine/Home Disposition Time: 23:24 Condition: STABLE Forms: [employer] (Bhutanese)
[2019-03-04 23:24] VITALS: BP 144/88; PULSE 88; TEMP 98
--- NOTE | 2019-03-05 08:59 | CT ---
Date of service: 03/04/2019 PROCEDURE: CT HEAD WITHOUT CONTRAST. HISTORY: alcohol abuse, head injury COMPARISON: None available. TECHNIQUE: Axial computed tomography images were obtained through the head/brain without intravenous contrast. Radiation dose: Total exam DLP = 1119.2 mGy-cm. This CT exam was performed using one or more of the following dose reduction techniques: Automated exposure control, adjustment of the mA and/or kV according to patient size, and/or use of iterative reconstruction technique. FINDINGS: HEMORRHAGE: No intracranial hemorrhage. BRAIN: No mass effect or edema. No atrophy or chronic microvascular ischemic changes. VENTRICLES: Unremarkable. No hydrocephalus. CALVARIUM: Unremarkable. PARANASAL SINUSES: Unremarkable as visualized. No significant inflammatory changes. MASTOID AIR CELLS: Unremarkable as visualized. No inflammatory changes. OTHER FINDINGS: None. IMPRESSION: No intracranial mass, hemorrhage or evidence of acute infarct. The preliminary findings for this examination were reported by [facility] at 8:21 p.m. on 03/04/2019. There is concurrence of this report with the preliminary findings.
[2019-03-08 21:26] VITALS: O2SAT 100
== END 2019-03-04 23:24 | disposition home or self-care (01) ==
LOC: H.ER 16:53
DX: F10.129 Alcohol abuse with intoxication, unspecified (principal); Z86.59 Personal history of other mental and behavioral disorders; F43.10 Post-traumatic stress disorder, unspecified; S09.90XA Unspecified injury of head, initial encounter; W19.XXXA Unspecified fall, initial encounter

== ENCOUNTER 2019-03-06 20:56 | Emergency (ER) | payer MEDICAID ==
[2019-03-06 21:26] VITALS: BMI 33.5
[2019-03-06 21:33] VITALS: RESP 18
--- NOTE | 2019-03-06 22:39 | ED PDOC ---
HPI: Female Pain Time Seen by Provider: 03/06/19 21:54 Chief Complaint (Nursing): Female Genitourinary Chief Complaint (Provider): Female Genitourinary History Per: Patient History/Exam Limitations: no limitations Current Symptoms Are (Timing): Still Present Additional Complaint(s): 53 year old female presents to the ED with urinary frequency, lower abdominal pain and rectal bleeding. Patient is withdrawing from klonopin and hasnt had it for a month. She admits to drinking alcohol tonight. PMD: [employer] Past Medical History Reviewed: Historical Data, Nursing Documentation, Vital Signs Vital Signs: Last Vital Signs Temp 98.2 F 03/06/19 21:29 Pulse 120 H 03/06/19 21:29 Resp 18 03/06/19 21:29 BP 164/86 H 03/06/19 21:29 Pulse Ox 98 03/06/19 21:29 Primary Care Provider: Procedure,Nonphys - Medical History PMH: Anxiety, Depression, Gastritis, GERD, Hepatitis (C), Post Traumatic Stress Disorder Denies: Diabetes, HIV, HTN, Chronic Kidney Disease, Seizures, Sexually Transmitted Disease - Family History Family History: States: Unknown Family Hx - Immunization History Hx Tetanus Toxoid Vaccination: No Hx Influenza Vaccination: No Hx Pneumococcal Vaccination: No - Home Medications Home Medications: Ambulatory Orders Medication Instructions Recorded Enalapril Maleate [Vasotec] 10 mg PO BID #60 tab 05/29/17 Clonazepam 1 mg PO TID 12/08/18 Enalapril Maleate [Vasotec] 10 mg PO BID #30 tab 12/12/18 Pantoprazole [Protonix EC Tab] 40 mg PO DAILY #30 ect 12/12/18 traZODone [Desyrel] 50 mg PO HS PRN #30 tab 12/12/18 Cyclobenzaprine [Flexeril] 5 mg PO TID #90 tab 02/20/19 Enalapril Maleate [Vasotec] 10 mg PO BID #60 tab 02/20/19 Gabapentin [Neurontin] 300 mg PO TID #90 cap 02/20/19 Pantoprazole [Protonix EC Tab] 40 mg PO DAILY #30 ect 02/20/19 traZODone [Desyrel] 50 mg PO HS PRN #30 tab 02/20/19 Nitrofurantoin Macrocrystals 100 mg PO BID 5 Days cap 03/07/19 [Macrobid] - Allergies Allergies/Adverse Reactions: Allergies Allergy/AdvReac Type Severity Reaction Status Date / Time No Known Allergies Allergy Verified 03/06/19 21:26 Review of Systems ROS Statement: Except As Marked, All Systems Reviewed And Found Negative Gastrointestinal: Positive for: Abdominal Pain (lower), Other (rectal bleeding) Genitourinary Female: Positive for: Frequency Physical Exam - Reviewed Nursing Documentation Reviewed: Yes Vital Signs Reviewed: Yes - Physical Exam Appears: Positive for: Non-toxic, No Acute Distress (alcohol on breath) Head Exam: Positive for: ATRAUMATIC Skin: Positive for: Normal Color, Warm, Dry Eye Exam: Positive for: Normal appearance, EOMI, PERRL Cardiovascular/Chest: Positive for: Regular Rate, Rhythm. Negative for: Murmur Respiratory: Positive for: Normal Breath Sounds. Negative for: Respiratory Distress Gastrointestinal/Abdominal: Positive for: Tenderness (suprapubic ) Rectal: Positive for: Other ( brown stool) Extremity: Positive for: Normal ROM (upper and lower). Negative for: Pedal Edema, Deformity Neurological/Psych: Positive for: Awake, Alert, Oriented (x3) - Laboratory Results Result Diagrams: 03/06/19 23:01 03/06/19 23:01 - ECG O2 Sat by Pulse Oximetry: 98 (RA) Pulse Ox Interpretation: Normal Medical Decision Making Medical Decision Making: Time: 2206 Plan: --CT abdomen and pelvis --Alcohol serum --CMP --U dip --CBC --PTT --PT/INR --Occult blood stool --UA Scribe Attestation: Documented by Nevaeh Marks, acting as a scribe for Christina Santamaria MD. Provider Scribe Attestation: All medical record entries made by the Scribe were at my direction and personally dictated by me. I have reviewed the chart and agree that the record accurately reflects my personal performance of the history, physical exam, medical decision making, and the department course for this patient. I have also personally directed, reviewed, and agree with the discharge instructions and disposition. Disposition - Clinical Impression Clinical Impression: Urinary tract infection, Anxiety, Alcohol intoxication - Disposition Referrals: [facility]xt[facility] Ricardo [Outside] Disposition: Transfer of Care Disposition Time: 00:00 Condition: STABLE Prescriptions: Nitrofurantoin Macrocrystals [Macrobid] 100 mg PO BID 5 Days cap Instructions: Urinary Tract Infections in Adults, Bloody Stools, Adult (DC), E ffects of Alcohol on Your Health Forms: [employer] ([place] Islander) Patient Signed Over To: Eddie Luke
[2019-03-06 23:12] LABS: BASO # 0.1 K/uL (0.0-0.2); BASO % 0.5 % (0.0-2.0); EOS % 0.2 % (0.0-4.0); HEMOGLOBIN 12.5 g/dL (12.0-16.0); LYMPH % 35.4 % (20.0-40.0); MEAN CORPUSCULAR HEMOGLOBIN 32.2 pg (27.0-31.0); MEAN CORPUSCULAR HGB CONC 34.6 g/dL (33.0-37.0); MONO # 0.9 K/uL (0.0-0.8); MONO % 7.8 % (0.0-10.0); NEUT # 6.4 K/uL (1.8-7.0); NEUT % 56.1 % (50.0-75.0); RBC 3.87 Mil/uL (3.80-5.20); RED CELL DISTRIBUTION WIDTH 13.2 % (11.5-14.5); WHITE BLOOD COUNT 11.3 K/uL (4.8-10.8)
[2019-03-06 23:21] LABS: INR 1.1
[2019-03-06 23:24] LABS: PARTIAL THROMBOPLASTIN TIME 38.9 Seconds (25.6-37.1)
[2019-03-06 23:26] LABS: ALB/GLOB RATIO 1.1 (1.0-2.1); ALT/SGPT 223 U/L (9-52); AST/SGOT 257 U/L (14-36); BLOOD UREA NITROGEN 10 mg/dl (7-17); CALCIUM 7.9 mg/dL (8.4-10.2); GFR NON-AFRICAN AMERICAN > 60
[2019-03-06] MEDS ORDERED: Iohexol 300 100 ML IJ ONE (23:34)
[2019-03-06] MEDS ORDERED: Sodium Chloride 0.9% 50 ML IV ONE (23:34)
[2019-03-06] MEDS ORDERED: Sodium Chloride 0.9% 1,000 ML IV STA (23:50)
--- NOTE | 2019-03-07 00:41 | ED PDOC ---
- Laboratory Results Result Diagrams: 03/06/19 23:01 03/06/19 23: Lab Results: PT 13.0 Seconds (9.8-13.1) 03/06/19 23: INR 1.1 03/06/19: APTT 38.9 Seconds (25.6-37.1) H 03/06/19 23: Total Bilirubin 0.8 mg/dl (0.2-1.3) 03/06/19 23: AST 257 U/L (14-36) H 03/06/19 23: ALT 223 U/L (9-52) H D 03/06/19 23: Alkaline Phosphatase 214 U/L (38-126) H D 03/06/19: Total Protein 7.8 G/DL (6.3-8.2) 03/06/19: Albumin 4.0 g/dL (3.5-5.0) 03/06/19: Globulin 3.7 gm/dL (2.2-3.9) 03/06/19: Albumin/Globulin Ratio 1.1 (1.0-2.1) 03/06/19 23: - ECG O2 Sat by Pulse Oximetry: 98 (RA) Pulse Ox Interpretation: Normal Medical Decision Making Medical Decision Makin Patient endorsed by Dr. Santamaria, pending CT abdomen/pelvis. 0039 CT Abdomen/Pelvis W/ Contrast Findings: Diffuse thickening and enhancement of the lower of the bladder suggestive of acute cystitis. Uncomplicated colonic diverticulosis. Bilateral ovarian calcifications are noted. Bilateral ovarian cysts are noted with the largest measuring 1.8 cm on the right side. Moderate sliding hiatal hernia. Bilateral enhancing urothelial thickening suggestive of an ascending urinary tract infection without associated pyelonephritis, hydronephrosis or drainable fluid collection. Fat containing umbilical hernia without incarceration. The liver is of uniform attenuation without mass or defect. There is no intra or extrahepatic biliary ductal dilatation. The spleen is normal. The gallbladder is within normal limits. The pancreas is of normal contour and attenuation characteristics. There is no evidence of adrenal mass. Both kidneys demonstrate prompt and equal nephrograms. The kidneys are normal in size, shape and configuration. There is no evidence of renal or ureteral mass. No renal or ureteral calculi are identified. There is no hydroureter or hydronephrosis. No evidence for appendicitis. There is no bowel wall thickening. No evidence for small or large bowel obstruction. There is no evidence of abdominal ascites or lymphadenopathy. There is no evidence of intrinsic or extrinsic bladder mass. There is no pelvic ascites or lymphadenopathy. Images of the lung bases show no evidence of pleural or parenchymal mass. There are no pleural effusions. The bony structures are free of lytic or blastic lesions. IMPRESSION: Diffuse thickening and enhancement of the lower of the bladder suggestive of acute cystitis. Uncomplicated colonic diverticulosis. Bilateral ovarian calcifications are noted. Bilateral ovarian cysts are noted with the largest measuring 1.8 cm on the right side. Moderate sliding hiatal hernia. Bilateral enhancing urothelial thickening suggestive of an ascending urinary tract infection without associated pyelonephritis, hydronephrosis or drainable fluid collection. Fat containing umbilical hernia without incarceration. 0322 Upon re-evaluation, patient is feeling better and is stable for discharge. Counseling has been provided and pt is in agreement. Return if symptoms persist or acutely worsen. Scribe Attestation: Documented by Rajni Minaya acting as a scribe for Eddie Luke MD. Provider Scribe Attestation: All medical record entries made by the Scribe were at my direction and personally dictated by me. I have reviewed the chart and agree that the record accurately reflects my personal performance of the history, physical exam, medical decision making, and the department course for this patient. I have also personally directed, reviewed, and agree with the discharge instructions and disposition. Disposition - Clinical Impression Clinical Impression: Urinary tract infection, Anxiety, Alcohol intoxication - POA Present On Arrival: None - Disposition Referrals: [facility] Ric[facility] [Outside] Disposition: Routine/Home Disposition Time: 03:22 Condition: IMPROVED Prescriptions: Nitrofurantoin Macrocrystals [Macrobid] 100 mg PO BID 5 Days cap Instructions: Urinary Tract Infections in Adults, Bloody Stools, Adult (DC), Effects of Alcohol on Your Health Forms: [employer] (Ukrainian)
[2019-03-07 02:35] LABS: SQUAMOUS EPITHIAL < 1 /hpf (0-5); URINE BACTERIA RARE (<OCC); URINE BILIRUBIN NEGATIVE (NEGATIVE); URINE BLOOD MODERATE (NEGATIVE); URINE CLARITY CLOUDY (Clear); URINE COLOR YELLOW (YELLOW); URINE GLUCOSE (UA) NEG (NEGATIVE); URINE LEUKOCYTE ESTERASE LARGE Leu/uL (Negative); URINE PROTEIN 100 mg/dL (NEGATIVE); URINE UROBILINOGEN 0.2-1.0 mg/dL (0.2-1.0)
[2019-03-07 04:10] VITALS: BP 138/79; PULSE 92; TEMP 98.4
[2019-03-07 04:23] VITALS: O2SAT 98
--- NOTE | 2019-03-07 12:38 | CT ---
Date of service: 03/06/2019 PROCEDURE: CT Abdomen and Pelvis with contrast HISTORY: Lower abd pain COMPARISON: Abdomen pelvis CT with contrast 03/26/2018. TECHNIQUE: Following the intravenous administration of iodinated contrast material, a CT examination of the abdomen and pelvis was performed from the domes of the diaphragms to the symphysis pubis with reformatted datasets provided in axial, sagittal and coronal planes. Oral contrast was not administered as per referring physician request. Contrast dose: Omnipaque 300, 90 cc Radiation dose: Total exam DLP = 774.33 mGy-cm. This CT exam was performed using one or more of the following dose reduction techniques: Automated exposure control, adjustment of the mA and/or kV according to patient size, and/or use of iterative reconstruction technique. FINDINGS: LOWER THORAX: Mild hiatal hernia reiterated. LIVER: Diffuse hepatic steatosis is appreciate without underlying mass appreciable or intrahepatic biliary dilatation. Mild hepatomegaly reiterated. GALLBLADDER AND BILE DUCTS: Gallbladder is distended but thin walled and otherwise unremarkable appearing. PANCREAS: Unremarkable. No gross lesion or ductal dilatation. SPLEEN: Unremarkable. ADRENALS: Unremarkable. No mass. KIDNEYS AND URETERS: Mild thickening of the bilateral distal ureteral zarate may indicate ureteritis. No hydronephrosis. No solid mass. VASCULATURE: Unremarkable. No aortic aneurysm. No aortic atherosclerotic calcification or mural plaque present. BOWEL: Sigmoid diverticulosis identified without definite diverticulitis. No colitis or enteritis pattern appreciated overall. The stomach is collapsed not well evaluated. Evaluation of the gastrointestinal tract is limited due to the lack of oral contrast administration. APPENDIX: Normal appendix. PERITONEUM: Small fat containing umbilical hernia is appreciated without reactive changes associated. LYMPH NODES: Unremarkable. No enlarged lymph nodes. BLADDER: Of the urinary bladder is nearly completely collapsed with mural thickening not excluded. Further, Diana cystic reactive changes suggested in a pattern that may indicate cystitis. Clinically correlate further. No radiodense urolithiasis is identified in the lumen. REPRODUCTIVE: Small left adnexal cyst reiterated. A 3.0 x 1.7 cm cyst seen in the right adnexal compartment for which follow-up transvaginal pelvic ultrasound is recommended. Bilateral adnexal calcifications may indicate prior infectious or inflammatory process with bilateral small dermoid tumor is less likely. BONES: No acute fracture. OTHER FINDINGS: None. IMPRESSION: 1. Acute subacute cystitis suspected. Ascending infection into the bilateral distal ureters is not excluded and may reflect ureteritis. Clinically correlate further. 2. Nonacute colonic diverticulosis. 3. Small bilateral ovarian cysts are identified potentially slightly increased at the right. Follow-up transvaginal pelvic ultrasonography is advised. Bilateral adnexal calcifications may indicate small dermoid tumors or post infectious or inflammatory change. Stable pattern. 4. Small fat containing hernia without bowel. No reactive changes associated. 5. Hepatic steatosis and hepatomegaly. Concordant preliminary report from [facility], 03/07/2019, 12:30 a.m..
== END 2019-03-07 04:10 | disposition home or self-care (01) ==
LOC: H.ER 20:56
DX: F10.129 Alcohol abuse with intoxication, unspecified (principal); N39.0 Urinary tract infection, site not specified; F41.9 Anxiety disorder, unspecified; F43.10 Post-traumatic stress disorder, unspecified; K21.9 Gastro-esophageal reflux disease without esophagitis; N83.201 Unspecified ovarian cyst, right side; N83.202 Unspecified ovarian cyst, left side; K42.9 Umbilical hernia without obstruction or gangrene; K44.9 Diaphragmatic hernia without obstruction or gangrene
CPT/HCPCS: 74177; 80053; 80320; 81003; 85025; 85610; 85730; 87086; 87181; 99284; G0328; J7030; Q9967